=== PATIENT | female | born 1955 | race Caucasian/White ===

== ENCOUNTER 2020-07-11 07:27 | Outpatient (REF) | payer MEDICARE, OTHER, SELFPAY ==
[2020-07-11 11:50] LABS: Alanine Aminotransferase 18 U/L (0-31); Albumin Level 4.2 g/dL (3.5-5.0); Alkaline Phosphatase 82 U/L (39-117); Anion Gap 13 (12-20); Aspartate Amino Transferase 17 U/L (5-31); Blood Urea Nitrogen 14 mg/dL (9-16); Calcium 9.7 mg/dL (8.4-10.2); Carbon Dioxide 27 mmol/L (22-29); Chloride 108 mmol/L (96-108); Estimated Glomerular Filt Rate 40; Glucose Random 132 mg/dL (60-115); Potassium 3.6 mmol/l (3.3-5.1); Sodium 144 mmol/L (135-145); Total Protein 6.6 g/dL (6.5-8.0)
[2020-07-11 11:55] LABS: Estimated Average Glucose 111 mg/dL; Hemoglobin A1c % 5.5 %
[2020-07-11 11:58] LABS: Free T4 (Free Thyroxine) 1.61 ng/dL (0.71-1.85); Thyroid Stimulating Hormone 0.47 mIU/mL (0.32-4.0)
[2020-07-11 12:24] LABS: Creatinine Urine 311.64 mg/dL; Microalbum/Creatinine Ratio Ur 4.8 ug/mg cr
== END 2020-07-11 07:28 | disposition home or self-care (01) ==
LOC: HO.HMGCLDS 07:27
PROVIDERS: PCP Internal Medicine; Visit Provider Internal Medicine
DX: I12.9 Hypertensive chronic kidney disease with stage 1 through stage 4 chronic kidney disease, or unspecified chronic kidney disease (principal); N18.9 Chronic kidney disease, unspecified; R73.09 Other abnormal glucose; E03.9 Hypothyroidism, unspecified; R60.0 Localized edema
CPT/HCPCS: 36415; 80053; 82043; 83036; 84439; 84443

== ENCOUNTER 2020-10-04 08:14 | Outpatient (REF) | payer MEDICARE, OTHER, SELFPAY ==
[2020-10-04 11:04] LABS: MANUAL DIFF FLAG NO
[2020-10-04 11:12] LABS: Basophils Absolute Auto 0.1 X10*3/uL (0.0-0.2); Eosinophils Absolute Auto 0.3 X10*3/uL (0.0-0.4); Eosinophils Percent Auto 3.2 % (0-4); Hematocrit 49.6 % (37-47); Hemoglobin 15.8 g/dl (12.0-16.0); Imm Gran Abs Auto 0.04 X10*3/uL (0.00-0.03); Imm Gran Pct Auto 0.5 % (0.0-0.4); Lymphocytes Absolute Auto 1.8 X10*3/uL (1.2-4.9); Lymphocytes Percent Auto 22.5 % (20-40); Mean Corpuscular HGB Conc 31.9 g/dl (31.0-35.0); Mean Corpuscular Hemoglobin 29.5 pg (27.0-33.0); Mean Corpuscular Volume 92.5 fL (80-98); Mean Platelet Volume 9.8 fL (9.4-12.3); Monocytes Absolute Auto 0.5 X10*3/uL (0.1-1.2); Monocytes Percent Auto 6.4 % (2-11); Neutrophils Absolute Auto 5.2 X10*3/uL (2.0-8.3); Neutrophils Percent Auto 66.4 % (45-73); Platelet Count 316 X10*3/uL (160-400); Red Blood Count 5.36 X10*6/uL (4.20-5.50); Red Cell Distribution Width 12.4 % (11.0-16.0); White Blood Count 7.9 X10*3/uL (4.8-10.8)
[2020-10-04 11:35] LABS: Estimated Average Glucose 114 mg/dL; Hemoglobin A1c % 5.6 %
[2020-10-04 11:49] LABS: Alanine Aminotransferase 13 U/L (0-31); Albumin Level 4.1 g/dL (3.5-5.0); Alkaline Phosphatase 81 U/L (39-117); Anion Gap 13 (12-20); Aspartate Amino Transferase 13 U/L (5-31); Bilirubin Total 0.6 mg/dL (0.0-1.0); Blood Urea Nitrogen 14 mg/dL (9-16); Calcium 9.1 mg/dL (8.4-10.2); Carbon Dioxide 25 mmol/L (22-29); Chloride 107 mmol/L (96-108); Cholesterol 205 mg/dL; Estimated Glomerular Filt Rate 39; Glucose Fasting 144 mg/dL (60-99); HDL Cholesterol 67 mg/dL; LDL Cholesterol Calculated 117 mg/dl; Potassium 3.5 mmol/l (3.3-5.1); Sodium 141 mmol/L (135-145); Total Protein 6.5 g/dL (6.5-8.0); Triglycerides 108 mg/dL
[2020-10-04 11:57] LABS: Free T4 (Free Thyroxine) 1.37 ng/dL (0.71-1.85); Thyroid Stimulating Hormone 0.35 uIU/mL (0.32-4.0); Vitamin D 25-OH Total 33.9 ng/mL (>30)
== END 2020-10-04 08:15 | disposition home or self-care (01) ==
LOC: HO.HMGCLDS 08:14
PROVIDERS: PCP Internal Medicine; Visit Provider Internal Medicine
DX: R73.03 Prediabetes (principal); E78.5 Hyperlipidemia, unspecified; I10 Essential (primary) hypertension; E05.90 Thyrotoxicosis, unspecified without thyrotoxic crisis or storm; E55.9 Vitamin D deficiency, unspecified; M19.90 Unspecified osteoarthritis, unspecified site
CPT/HCPCS: 36415; 80053; 80061; 82043; 82306; 83036; 84439; 84443; 85025

== ENCOUNTER 2021-01-02 07:31 | Outpatient (REF) | payer MEDICARE, OTHER, SELFPAY ==
[2021-01-02 11:35] LABS: Estimated Average Glucose 114 mg/dL; Hemoglobin A1C 149.0552 umol/L; Hemoglobin A1c % 5.6 %
[2021-01-02 12:13] LABS: Creatinine Urine 325.31 mg/dL; Microalbum/Creatinine Ratio Ur 8.2 ug/mg cr
[2021-01-02 12:26] LABS: Anion Gap 15 (12-20); Blood Urea Nitrogen 16 mg/dL (9-16); Calcium 9.3 mg/dL (8.4-10.2); Carbon Dioxide 25 mmol/L (22-29); Chloride 107 mmol/L (96-108); Estimated Glomerular Filt Rate 44; Glucose Random 127 mg/dL (60-115); Potassium 3.8 mmol/L (3.3-5.1); Sodium 143 mmol/L (135-145)
== END 2021-01-02 07:32 | disposition home or self-care (01) ==
LOC: HO.HMGCLDS 07:31
PROVIDERS: PCP Internal Medicine; Visit Provider Internal Medicine
DX: I12.9 Hypertensive chronic kidney disease with stage 1 through stage 4 chronic kidney disease, or unspecified chronic kidney disease (principal); N18.9 Chronic kidney disease, unspecified; R73.03 Prediabetes
CPT/HCPCS: 36415; 80048; 82043; 83036

== ENCOUNTER 2021-04-12 06:53 | Outpatient (REF) | payer MEDICARE, OTHER, SELFPAY ==
[2021-04-12 11:16] LABS: MANUAL DIFF FLAG NO
[2021-04-12 11:24] LABS: Basophils Absolute Auto 0.1 X10*3/uL (0.0-0.2); Basophils Percent Auto 0.5 % (0-2); Eosinophils Absolute Auto 0.4 X10*3/uL (0.0-0.4); Eosinophils Percent Auto 3.8 % (0-4); Hematocrit 48.2 % (37-47); Hemoglobin 15.8 g/dl (12.0-16.0); Imm Gran Abs Auto 0.04 X10*3/uL (0.00-0.03); Imm Gran Pct Auto 0.4 % (0.0-0.4); Lymphocytes Absolute Auto 2.5 X10*3/uL (1.2-4.9); Lymphocytes Percent Auto 26.8 % (20-40); Mean Corpuscular HGB Conc 32.8 g/dl (31.0-35.0); Mean Corpuscular Hemoglobin 29.5 pg (27.0-33.0); Mean Corpuscular Volume 90.1 fL (80-98); Mean Platelet Volume 10.2 fL (9.4-12.3); Monocytes Absolute Auto 0.6 X10*3/uL (0.1-1.2); Monocytes Percent Auto 6.5 % (2-11); Neutrophils Absolute Auto 5.7 X10*3/uL (2.0-8.3); Platelet Count 279 X10*3/uL (160-400); Red Blood Count 5.35 X10*6/uL (4.20-5.50); Red Cell Distribution Width 12.6 % (11.0-16.0); White Blood Count 9.1 X10*3/uL (4.8-10.8)
[2021-04-12 11:34] LABS: Estimated Average Glucose 114 mg/dL; Hemoglobin A1c % 5.6 %
[2021-04-12 11:39] LABS: Microalbum/Creatinine Ratio Ur 8.5 ug/mg cr
[2021-04-12 11:49] LABS: Alanine Aminotransferase 13 U/L (0-31); Albumin Level 4.1 g/dL (3.5-5.0); Alkaline Phosphatase 90 U/L (39-117); Anion Gap 16 (12-20); Aspartate Amino Transferase 18 U/L (5-31); Bilirubin Total 1.1 mg/dL (0.0-1.0); Blood Urea Nitrogen 16 mg/dL (9-16); Calcium 9.6 mg/dL (8.4-10.2); Carbon Dioxide 19 mmol/L (22-29); Chloride 109 mmol/L (96-108); Estimated Glomerular Filt Rate 43; Glucose Random 144 mg/dL (60-115); Potassium 3.7 mmol/L (3.3-5.1); Sodium 140 mmol/L (135-145); Total Protein 6.7 g/dL (6.5-8.0)
[2021-04-12 12:12] LABS: Free T4 (Free Thyroxine) 1.46 ng/dL (0.71-1.85); Thyroid Stimulating Hormone 1.11 uIU/mL (0.32-4.0)
== END 2021-04-12 06:54 | disposition home or self-care (01) ==
LOC: HO.HMGCLDS 06:53
PROVIDERS: PCP Internal Medicine; Visit Provider Internal Medicine
DX: I12.9 Hypertensive chronic kidney disease with stage 1 through stage 4 chronic kidney disease, or unspecified chronic kidney disease (principal); N18.9 Chronic kidney disease, unspecified; E03.9 Hypothyroidism, unspecified; R73.03 Prediabetes
CPT/HCPCS: 36415; 80053; 82043; 83036; 84439; 84443; 85025

== ENCOUNTER 2021-07-17 08:05 | Outpatient (REF) | payer MEDICARE, SELFPAY ==
[2021-07-17 11:35] LABS: MANUAL DIFF FLAG NO
[2021-07-17 11:41] LABS: Basophils Absolute Auto 0.1 X10*3/uL (0.0-0.2); Basophils Percent Auto 0.6 % (0-2); Eosinophils Absolute Auto 0.3 X10*3/uL (0.0-0.4); Eosinophils Percent Auto 3.7 % (0-4); Hematocrit 49.5 % (37-47); Hemoglobin 15.9 g/dl (12.0-16.0); Imm Gran Abs Auto 0.03 X10*3/uL (0.00-0.03); Imm Gran Pct Auto 0.3 % (0.0-0.4); Lymphocytes Absolute Auto 2.5 X10*3/uL (1.2-4.9); Lymphocytes Percent Auto 28.2 % (20-40); Mean Corpuscular HGB Conc 32.1 g/dl (31.0-35.0); Mean Corpuscular Hemoglobin 29.4 pg (27.0-33.0); Mean Corpuscular Volume 91.7 fL (80-98); Mean Platelet Volume 9.8 fL (9.4-12.3); Monocytes Absolute Auto 0.6 X10*3/uL (0.1-1.2); Neutrophils Absolute Auto 5.3 X10*3/uL (2.0-8.3); Neutrophils Percent Auto 60.2 % (45-73); Platelet Count 324 X10*3/uL (160-400); Red Cell Distribution Width 12.5 % (11.0-16.0); White Blood Count 8.8 X10*3/uL (4.8-10.8)
[2021-07-17 11:47] LABS: Estimated Average Glucose 111 mg/dL; Hemoglobin A1c % 5.5 %
[2021-07-17 11:55] LABS: Alanine Aminotransferase 11 U/L (0-31); Albumin Level 4.1 g/dL (3.5-5.0); Alkaline Phosphatase 86 U/L (39-117); Anion Gap 13 (12-20); Aspartate Amino Transferase 15 U/L (5-31); Blood Urea Nitrogen 15 mg/dL (9-16); Calcium 9.9 mg/dL (8.4-10.2); Carbon Dioxide 25 mmol/L (22-29); Chloride 107 mmol/L (96-108); Cholesterol 203 mg/dL; Estimated Glomerular Filt Rate 42; Glucose Fasting 140 mg/dL (60-99); HDL Cholesterol 65 mg/dL; LDL Cholesterol Calculated 116 mg/dl; Potassium 3.6 mmol/L (3.3-5.1); Sodium 141 mmol/L (135-145); Total Protein 6.7 g/dL (6.5-8.0); Triglycerides 113 mg/dL
[2021-07-17 12:19] LABS: Free T4 (Free Thyroxine) 1.38 ng/dL (0.71-1.85); Thyroid Stimulating Hormone 0.83 uIU/mL (0.32-4.0)
== END 2021-07-17 08:06 | disposition home or self-care (01) ==
LOC: HO.HMGCLDS 08:05
PROVIDERS: PCP Internal Medicine; Visit Provider Internal Medicine
DX: I12.9 Hypertensive chronic kidney disease with stage 1 through stage 4 chronic kidney disease, or unspecified chronic kidney disease (principal); N18.9 Chronic kidney disease, unspecified; R73.03 Prediabetes; M19.90 Unspecified osteoarthritis, unspecified site; E78.00 Pure hypercholesterolemia, unspecified; E03.9 Hypothyroidism, unspecified
CPT/HCPCS: 36415; 80053; 80061; 83036; 84439; 84443; 85025

== ENCOUNTER 2021-09-14 08:50 | Outpatient (REF) | payer MEDICARE, SELFPAY ==
[2021-09-14 12:08] LABS: Anion Gap 14 (12-20); Blood Urea Nitrogen 18 mg/dL (9-16); Calcium 10.1 mg/dL (8.4-10.2); Carbon Dioxide 28 mmol/L (22-29); Chloride 104 mmol/L (96-108); Estimated Glomerular Filt Rate 41; Glucose Random 137 mg/dL (60-115); Potassium 3.6 mmol/L (3.3-5.1); Sodium 142 mmol/L (135-145)
[2021-09-14 12:34] LABS: Free T4 (Free Thyroxine) 1.54 ng/dL (0.71-1.85); Thyroid Stimulating Hormone 0.83 uIU/mL (0.32-4.0); Vitamin D 25-OH Total 41.8 ng/mL (>30)
[2021-09-14 13:53] LABS: Estimated Average Glucose 114 mg/dL; Hemoglobin A1c % 5.6 %
== END 2021-09-14 08:51 | disposition home or self-care (01) ==
LOC: HO.HMGCLDS 08:50
PROVIDERS: PCP Internal Medicine; Visit Provider Internal Medicine
DX: E55.9 Vitamin D deficiency, unspecified (principal); E11.22 Type 2 diabetes mellitus with diabetic chronic kidney disease; I12.9 Hypertensive chronic kidney disease with stage 1 through stage 4 chronic kidney disease, or unspecified chronic kidney disease; N18.9 Chronic kidney disease, unspecified; E03.9 Hypothyroidism, unspecified
CPT/HCPCS: 36415; 80048; 82306; 83036; 84439; 84443

== ENCOUNTER 2022-04-05 08:27 | Outpatient (REF) | payer MEDICARE, OTHER, SELFPAY ==
[2022-04-05 11:20] LABS: MANUAL DIFF FLAG NO
[2022-04-05 11:33] LABS: Basophils Absolute Auto 0.1 X10*3/uL (0.0-0.2); Basophils Percent Auto 0.6 % (0-2); Eosinophils Absolute Auto 0.3 X10*3/uL (0.0-0.4); Eosinophils Percent Auto 3.6 % (0-4); Hematocrit 48.6 % (37.0-47.0); Hemoglobin 15.4 g/dl (12.0-16.0); Imm Gran Abs Auto 0.03 X10*3/uL (0.00-0.03); Imm Gran Pct Auto 0.3 % (0.0-0.4); Lymphocytes Absolute Auto 1.8 X10*3/uL (1.2-4.9); Mean Corpuscular HGB Conc 31.7 g/dl (31.0-35.0); Mean Corpuscular Hemoglobin 28.8 pg (27.0-33.0); Mean Corpuscular Volume 90.8 fL (80.0-98.0); Mean Platelet Volume 9.5 fL (9.4-12.3); Monocytes Absolute Auto 0.6 X10*3/uL (0.1-1.2); Monocytes Percent Auto 6.2 % (2-11); Neutrophils Absolute Auto 6.7 x10*3/uL (2.0-8.3); Neutrophils Percent Auto 70.3 % (45-73); Platelet Count 332 X10*3/uL (160-400); Red Blood Count 5.35 X10*6/uL (4.20-5.50); Red Cell Distribution Width 12.7 % (11.0-16.0); White Blood Count 9.5 X10*3/uL (4.8-10.8)
[2022-04-05 11:55] LABS: Microalbum/Creatinine Ratio Ur 5.8 ug/mg cr
[2022-04-05 11:58] LABS: Anion Gap 13 (12-20); Blood Urea Nitrogen 16 mg/dL (9-16); Calcium 9.7 mg/dL (8.4-10.2); Carbon Dioxide 26 mmol/L (22-29); Chloride 107 mmol/L (96-108); Estimated Glomerular Filt Rate 40; Sodium 142 mmol/L (135-145)
[2022-04-05 11:59] LABS: Alanine Aminotransferase 16 U/L (0-31); Albumin Level 4.2 g/dL (3.5-5.0); Alkaline Phosphatase 94 U/L (39-117); Anion Gap 13 (12-20); Aspartate Amino Transferase 18 U/L (5-31); Bilirubin Total 0.9 mg/dL (0.0-1.0); Blood Urea Nitrogen 16 mg/dL (9-16); Calcium 9.9 mg/dL (8.4-10.2); Carbon Dioxide 27 mmol/L (22-29); Chloride 106 mmol/L (96-108); Estimated Glomerular Filt Rate 40; Glucose Random 153 mg/dL (60-115); Sodium 142 mmol/L (135-145); Total Protein 6.9 g/dL (6.5-8.0)
[2022-04-05 12:07] LABS: Free T4 (Free Thyroxine) 1.48 ng/dL (0.71-1.85); Thyroid Stimulating Hormone 4.22 uIU/mL (0.32-4.0)
[2022-04-05 12:15] LABS: Estimated Average Glucose 111 mg/dL; Hemoglobin A1c % 5.5 %
[2022-04-07 18:01] LABS: Calcium (PTHI) 8.9 mg/dL (8.6-10.4); PTHI 93 pg/mL (16-77)
== END 2022-04-05 08:28 | disposition home or self-care (01) ==
LOC: HO.HMGCLDS 08:27
PROVIDERS: Absent Provider Internal Medicine Nephrology; PCP Internal Medicine; Visit Provider Internal Medicine
DX: I12.9 Hypertensive chronic kidney disease with stage 1 through stage 4 chronic kidney disease, or unspecified chronic kidney disease (principal); N18.31 Chronic kidney disease, stage 3a; R73.03 Prediabetes; E03.9 Hypothyroidism, unspecified
CPT/HCPCS: 36415; 80051; 80053; 82043; 82306; 82310; 82565; 83036; 83970; 84439; 84443; 84520; 85025

== ENCOUNTER 2022-07-09 06:51 | Outpatient (REF) | payer MEDICARE, OTHER, SELFPAY ==
[2022-07-09 11:23] LABS: Appearance Urine Turbid; Color Urine Dark Yellow; Glucose Urine UA Negative (Negative); Leukocyte Esterase Urine Negative (Negative); Nitrite Urine Negative (Negative); PH 5.5 (5.0-9.0); Specific Gravity - Urine >= 1.030 (1.005-1.025); UMIC TRIGGER UA YES; Urine Blood Large (3+) (Negative); Urine Ketones Negative (Negative); Urine Protein Trace mg/dL (Neg-Trace)
[2022-07-09 11:25] LABS: MANUAL DIFF FLAG NO
[2022-07-09 11:28] LABS: Bacteria Urine 4+ (None Seen); Hyaline Casts Urine 0-2 /LPF (0-2); Squamous Epithelial Cell Urine >20 /HPF (0-2)
[2022-07-09 11:37] LABS: Basophils Absolute Auto 0.1 X10*3/uL (0.0-0.2); Basophils Percent Auto 0.7 % (0-2); Eosinophils Absolute Auto 0.4 X10*3/uL (0.0-0.4); Eosinophils Percent Auto 4.2 % (0-4); Hematocrit 47.3 % (37.0-47.0); Hemoglobin 15.3 g/dl (12.0-16.0); Imm Gran Abs Auto 0.04 X10*3/uL (0.00-0.03); Imm Gran Pct Auto 0.5 % (0.0-0.4); Lymphocytes Absolute Auto 2.4 X10*3/uL (1.2-4.9); Lymphocytes Percent Auto 27.3 % (20-40); Mean Corpuscular HGB Conc 32.3 g/dl (31.0-35.0); Mean Corpuscular Hemoglobin 29.7 pg (27.0-33.0); Mean Corpuscular Volume 91.7 fL (80.0-98.0); Mean Platelet Volume 9.7 fL (9.4-12.3); Monocytes Absolute Auto 0.6 X10*3/uL (0.1-1.2); Neutrophils Absolute Auto 5.3 x10*3/uL (2.0-8.3); Neutrophils Percent Auto 60.3 % (45-73); Platelet Count 298 X10*3/uL (160-400); Red Blood Count 5.16 X10*6/uL (4.20-5.50); Red Cell Distribution Width 12.4 % (11.0-16.0); White Blood Count 8.8 X10*3/uL (4.8-10.8)
[2022-07-09 11:44] LABS: Estimated Average Glucose 117 mg/dL; Hemoglobin A1c % 5.7 %
[2022-07-09 11:50] LABS: Creatinine Urine 279.45 mg/dL; Microalbum/Creatinine Ratio Ur 4.6 ug/mg cr
[2022-07-09 12:22] LABS: Alanine Aminotransferase 19 U/L (0-31); Albumin Level 4.2 g/dL (3.5-5.0); Alkaline Phosphatase 83 U/L (39-117); Anion Gap 15 (12-20); Aspartate Amino Transferase 18 U/L (5-31); Blood Urea Nitrogen 17 mg/dL (9-16); Calcium 9.8 mg/dL (8.4-10.2); Carbon Dioxide 29 mmol/L (22-29); Chloride 102 mmol/L (96-108); Cholesterol 215 mg/dL; Estimated Glomerular Filt Rate 39; Glucose Fasting 133 mg/dL (60-99); HDL Cholesterol 63 mg/dL; LDL Cholesterol Calculated 124 mg/dl; Potassium 3.6 mmol/L (3.3-5.1); Sodium 142 mmol/L (135-145); Total Protein 6.6 g/dL (6.5-8.0); Triglycerides 143 mg/dL
[2022-07-09 12:30] LABS: Free T4 (Free Thyroxine) 1.84 ng/dL (0.71-1.85); Thyroid Stimulating Hormone 2.29 uIU/mL (0.32-4.0)
== END 2022-07-09 06:52 | disposition home or self-care (01) ==
LOC: HO.HMGCLDS 06:51
PROVIDERS: PCP Internal Medicine; Visit Provider Internal Medicine
DX: I12.9 Hypertensive chronic kidney disease with stage 1 through stage 4 chronic kidney disease, or unspecified chronic kidney disease (principal); N18.9 Chronic kidney disease, unspecified; E78.00 Pure hypercholesterolemia, unspecified; E03.9 Hypothyroidism, unspecified; R73.03 Prediabetes
CPT/HCPCS: 36415; 80053; 80061; 81001; 82043; 83036; 84439; 84443; 85025

== ENCOUNTER 2022-11-05 10:37 | Outpatient (REF) | payer MEDICARE, OTHER, SELFPAY ==
[2022-11-05 14:23] LABS: Alanine Aminotransferase 28 U/L (0-31); Albumin Level 4.3 g/dL (3.5-5.0); Alkaline Phosphatase 87 U/L (39-117); Anion Gap 13 (12-20); Aspartate Amino Transferase 21 U/L (5-31); Bilirubin Total 1.2 mg/dL (0.0-1.0); Blood Urea Nitrogen 15 mg/dL (9-16); Calcium 9.7 mg/dL (8.4-10.2); Carbon Dioxide 32 mmol/L (22-29); Chloride 101 mmol/L (96-108); Estimated Glomerular Filt Rate 40; Glucose Random 130 mg/dL (60-115); Potassium 3.4 mmol/L (3.3-5.1); Sodium 143 mmol/L (135-145); Total Protein 6.8 g/dL (6.5-8.0)
[2022-11-05 14:40] LABS: Free T4 (Free Thyroxine) 1.38 ng/dL (0.71-1.85); Thyroid Stimulating Hormone 3.17 uIU/mL (0.32-4.0)
== END 2022-11-05 10:38 | disposition home or self-care (01) ==
LOC: HO.10HDL 10:37
PROVIDERS: Visit Provider Internal Medicine
DX: I12.9 Hypertensive chronic kidney disease with stage 1 through stage 4 chronic kidney disease, or unspecified chronic kidney disease (principal); N18.9 Chronic kidney disease, unspecified; E03.9 Hypothyroidism, unspecified
CPT/HCPCS: 36415; 80053; 84439; 84443

== ENCOUNTER 2023-03-05 09:31 | Outpatient (REF) | payer MEDICARE, OTHER, SELFPAY ==
[2023-03-05 10:39] LABS: MANUAL DIFF FLAG NO
[2023-03-05 10:45] LABS: Basophils Absolute Auto 0.1 X10*3/uL (0.0-0.2); Eosinophils Absolute Auto 0.4 X10*3/uL (0.0-0.4); Eosinophils Percent Auto 4.5 % (0-4); Hemoglobin 15.5 g/dl (12.0-16.0); Imm Gran Abs Auto 0.05 X10*3/uL (0.00-0.03); Imm Gran Pct Auto 0.6 % (0.0-0.4); Lymphocytes Absolute Auto 2.1 X10*3/uL (1.2-4.9); Lymphocytes Percent Auto 23.2 % (20-40); Mean Corpuscular HGB Conc 31.6 g/dl (31.0-35.0); Mean Corpuscular Hemoglobin 29.2 pg (27.0-33.0); Mean Corpuscular Volume 92.5 fL (80.0-98.0); Mean Platelet Volume 9.6 fL (9.4-12.3); Monocytes Absolute Auto 0.6 X10*3/uL (0.1-1.2); Monocytes Percent Auto 6.8 % (2-11); Neutrophils Absolute Auto 5.8 x10*3/uL (2.0-8.3); Neutrophils Percent Auto 63.9 % (45-73); Platelet Count 325 X10*3/uL (160-400); Red Cell Distribution Width 12.8 % (11.0-16.0)
[2023-03-05 10:53] LABS: Estimated Average Glucose 117 mg/dL; Hemoglobin A1c % 5.7 %
[2023-03-05 11:02] LABS: Alanine Aminotransferase 17 U/L (0-31); Albumin Level 4.3 g/dL (3.5-5.0); Alkaline Phosphatase 89 U/L (39-117); Anion Gap 12 (12-20); Aspartate Amino Transferase 15 U/L (5-31); Blood Urea Nitrogen 18 mg/dL (9-16); Calcium 10.2 mg/dL (8.4-10.2); Carbon Dioxide 31 mmol/L (22-29); Chloride 104 mmol/L (96-108); Estimated Glomerular Filt Rate 36; Glucose Random 152 mg/dL (60-115); Potassium 4.1 mmol/L (3.3-5.1); Sodium 143 mmol/L (135-145)
[2023-03-05 11:19] LABS: Free T4 (Free Thyroxine) 1.31 ng/dL (0.71-1.85)
== END 2023-03-05 09:32 | disposition home or self-care (01) ==
LOC: HO.10HDL 09:31
PROVIDERS: Visit Provider Internal Medicine
DX: R73.03 Prediabetes (principal); I12.9 Hypertensive chronic kidney disease with stage 1 through stage 4 chronic kidney disease, or unspecified chronic kidney disease; N18.9 Chronic kidney disease, unspecified; E03.9 Hypothyroidism, unspecified
CPT/HCPCS: 36415; 80053; 83036; 84439; 84443; 85025

== ENCOUNTER 2023-06-11 10:15 | Outpatient (REF) | payer MEDICARE, OTHER, SELFPAY ==
[2023-06-11 13:11] LABS: MANUAL DIFF FLAG NO
[2023-06-11 13:30] LABS: Basophils Absolute Auto 0.1 X10*3/uL (0.0-0.2); Basophils Percent Auto 1.1 % (0-2); Eosinophils Absolute Auto 0.3 X10*3/uL (0.0-0.4); Eosinophils Percent Auto 3.5 % (0-4); Hematocrit 49.8 % (37.0-47.0); Hemoglobin 15.9 g/dl (12.0-16.0); Imm Gran Abs Auto 0.03 X10*3/uL (0.00-0.03); Imm Gran Pct Auto 0.4 % (0.0-0.4); Lymphocytes Absolute Auto 2.2 X10*3/uL (1.2-4.9); Lymphocytes Percent Auto 26.3 % (20-40); Mean Corpuscular HGB Conc 31.9 g/dl (31.0-35.0); Mean Corpuscular Hemoglobin 29.8 pg (27.0-33.0); Mean Corpuscular Volume 93.3 fL (80.0-98.0); Mean Platelet Volume 9.9 fL (9.4-12.3); Monocytes Absolute Auto 0.6 X10*3/uL (0.1-1.2); Monocytes Percent Auto 7.2 % (2-11); Neutrophils Absolute Auto 5.1 x10*3/uL (2.0-8.3); Neutrophils Percent Auto 61.5 % (45-73); Platelet Count 335 X10*3/uL (160-400); Red Blood Count 5.34 X10*6/uL (4.20-5.50); Red Cell Distribution Width 12.7 % (11.0-16.0); White Blood Count 8.2 X10*3/uL (4.8-10.8)
[2023-06-11 13:34] LABS: Estimated Average Glucose 114 mg/dL; Hemoglobin A1c % 5.6 % (<6.0)
[2023-06-11 13:49] LABS: Alanine Aminotransferase 13 U/L (0-31); Albumin Level 4.1 g/dL (3.5-5.0); Alkaline Phosphatase 86 U/L (39-117); Anion Gap 12 (12-20); Aspartate Amino Transferase 15 U/L (5-31); Bilirubin Total 0.7 mg/dL (0.0-1.0); Blood Urea Nitrogen 15 mg/dL (9-16); Calcium 10.1 mg/dL (8.4-10.2); Carbon Dioxide 28 mmol/L (22-29); Chloride 105 mmol/L (96-108); Estimated Glomerular Filt Rate 33; Glucose Random 142 mg/dL (60-115); Potassium 3.6 mmol/L (3.3-5.1); Sodium 141 mmol/L (135-145)
[2023-06-11 14:10] LABS: Free T4 (Free Thyroxine) 1.22 ng/dL (0.71-1.85); Thyroid Stimulating Hormone 5.04 uIU/mL (0.32-4.0)
== END 2023-06-11 10:16 | disposition home or self-care (01) ==
LOC: HO.10HDL 10:15
PROVIDERS: Visit Provider Internal Medicine
DX: R73.03 Prediabetes (principal); E03.9 Hypothyroidism, unspecified; I12.9 Hypertensive chronic kidney disease with stage 1 through stage 4 chronic kidney disease, or unspecified chronic kidney disease; N18.9 Chronic kidney disease, unspecified
CPT/HCPCS: 36415; 80053; 83036; 84439; 84443; 85025

== ENCOUNTER 2023-09-25 07:18 | Outpatient (REF) | payer MEDICARE, OTHER, SELFPAY ==
[2023-09-25 11:33] LABS: MANUAL DIFF FLAG NO
[2023-09-25 11:56] LABS: Estimated Average Glucose 120 mg/dL; Hemoglobin A1c % 5.8 % (<6.0)
[2023-09-25 12:06] LABS: Basophils Absolute Auto 0.1 X10*3/uL (0.0-0.2); Basophils Percent Auto 0.9 % (0-2); Eosinophils Absolute Auto 0.2 X10*3/uL (0.0-0.4); Eosinophils Percent Auto 3.1 % (0-4); Hematocrit 49.5 % (37.0-47.0); Imm Gran Abs Auto 0.04 X10*3/uL (0.00-0.03); Imm Gran Pct Auto 0.5 % (0.0-0.4); Lymphocytes Absolute Auto 2.3 X10*3/uL (1.2-4.9); Lymphocytes Percent Auto 31.2 % (20-40); Mean Corpuscular HGB Conc 32.3 g/dl (31.0-35.0); Mean Corpuscular Volume 89.8 fL (80.0-98.0); Mean Platelet Volume 9.3 fL (9.4-12.3); Monocytes Absolute Auto 0.5 X10*3/uL (0.1-1.2); Monocytes Percent Auto 7.1 % (2-11); Neutrophils Absolute Auto 4.3 x10*3/uL (2.0-8.3); Neutrophils Percent Auto 57.2 % (45-73); Platelet Count 334 X10*3/uL (160-400); Red Blood Count 5.51 X10*6/uL (4.20-5.50); Red Cell Distribution Width 12.6 % (11.0-16.0); White Blood Count 7.5 X10*3/uL (4.8-10.8)
[2023-09-25 12:28] LABS: Appearance Urine Cloudy; Color Urine Yellow; Glucose Urine UA Negative (Negative); Leukocyte Esterase Urine Negative (Negative); Nitrite Urine Negative (Negative); PH 5.5 (5.0-9.0); Specific Gravity - Urine >= 1.030 (1.005-1.025); UMIC TRIGGER UA YES; Urine Blood Large (3+) (Negative); Urine Ketones Negative (Negative); Urine Protein 30 (1+) mg/dL (Neg-Trace)
[2023-09-25 12:38] LABS: Alanine Aminotransferase 13 U/L (0-31); Alkaline Phosphatase 72 U/L (39-117); Anion Gap 12 (12-20); Aspartate Amino Transferase 13 U/L (5-31); Blood Urea Nitrogen 13 mg/dL (9-16); Calcium 9.8 mg/dL (8.4-10.2); Carbon Dioxide 25 mmol/L (22-29); Chloride 106 mmol/L (96-108); Cholesterol 185 mg/dL (<200); Estimated Glomerular Filt Rate 36; Free T4 (Free Thyroxine) 1.48 ng/dL (0.71-1.85); Glucose Fasting 154 mg/dL (60-99); HDL Cholesterol 55 mg/dL (>40); LDL Cholesterol Calculated 106 mg/dL (<100); Potassium 3.3 mmol/L (3.3-5.1); Sodium 140 mmol/L (135-145); Thyroid Stimulating Hormone 1.62 uIU/mL (0.32-4.0); Total Protein 6.8 g/dL (6.5-8.0); Triglycerides 121 mg/dL (<150)
[2023-09-25 12:39] LABS: Microalbum/Creatinine Ratio Ur 18.6 ug/mg cr (<30)
[2023-09-25 12:54] LABS: Bacteria Urine 2+ (None Seen); Hyaline Casts Urine 0-2 /LPF (0-2); Squamous Epithelial Cell Urine >20 /HPF (0-2)
== END 2023-09-25 07:19 | disposition home or self-care (01) ==
LOC: HO.HMGCLDS 07:18
PROVIDERS: PCP Internal Medicine; Visit Provider Internal Medicine
DX: E03.9 Hypothyroidism, unspecified (principal); E78.00 Pure hypercholesterolemia, unspecified; R73.03 Prediabetes; I12.9 Hypertensive chronic kidney disease with stage 1 through stage 4 chronic kidney disease, or unspecified chronic kidney disease; N18.9 Chronic kidney disease, unspecified
CPT/HCPCS: 36415; 80053; 80061; 81001; 81003; 82043; 82570; 83036; 84439; 84443; 85025

== ENCOUNTER 2023-12-24 09:40 | Outpatient (AMB) | payer MEDICARE, OTHER, SELFPAY ==
[2023-12-24 10:00] VITALS: BP 120/74; PULSE 76; O2SAT 97; BMI 35.9
--- NOTE | 2023-12-24 10:00 | HO.NEPHOV_ITS ---
HPI HPI Comments History of Present Illness Details I had the privilege of seeing Claire in follow-up of her chronic kidney disease and hypertension. She feels well. She does not have any chest pain, shortness of breath, paroxysmal nocturnal dyspnea, orthopnea, pedal edema, urinary or orthostatic symptoms. She is compliant with her medications. She has not gained any weight. Her blood pressure has been at goal. She is closely followed by her primary care physician. [facility] Medical History (Updated 01/08/24 @ 21:34 by Case Portillo MD) Hypertension Chronic kidney disease, stage 3a Vital Signs 12/24/23 10:00 Height 5 ft 7 in Weight 229 lb BMI 35.9 BP 120/74 Blood Pressure Location Lt brachial Position Sitting Pulse 76 Pulse Source Pulse Oximeter Pulse Oximetry (%) 97 Oxygen Delivery Method Room Air Physical Exam Vital Signs: Last Vital Signs Pulse 76 12/24/23 10:00 BP 120/74 12/24/23 10:00 Pulse Ox 97 12/24/23 10:00 Oxygen Delivery Method Room Air 12/24/23 10:00 BMI result Body Mass Index 35.9 Const General: comfortable and no acute distress Orientation/consciousness: patient oriented x3 HEENT Head: Yes normocephalic Mouth: Normal oral and palatal mucosa present Eyes EOM: EOMs intact bilaterally Neck Neck: Yes supple Resp Auscultation: clear to auscultation bilaterally Cardio Jugular venous distension: no JVD Rate: regular rate GI Palpation (GI): Soft to palpation Auscultation: normal bowel sounds General: Yes no CVA tenderness Back/Spine/Pelvis Back: no CVA tenderness Skin General skin exam: no rashes or lesions noted Neuro General: patient oriented x3 and moves all extremities Extrem General: Yes no pedal edema Assessment & Plan Assessment & Plan (1) CKD (chronic kidney disease) stage 3, GFR 30-59 ml/min: Code(s): N18.30 - Chronic kidney disease, stage 3 unspecified Qualifiers: Chronic kidney disease stage 3 subtype: stage 3a (GFR 45-59) Qualified Code(s): N18.31 - Chronic kidney disease, stage 3a (2) Hypertension: Code(s): I10 - Essential (primary) hypertension Qualifiers: Hypertension type: primary hypertension Qualified Code(s): I10 - Essential (primary) hypertension (3) Proteinuria: Code(s): R80.9 - Proteinuria, unspecified Qualifiers: Proteinuria type: other Qualified Code(s): R80.8 - Other proteinuria Plan Her renal functions are currently stable. Her blood pressure has been at goal. She would benefit by some more weight loss. She should maintain a low-sodium diet. Her volume status quite optimal. She avoids nonsteroidal anti- inflammatories and maintain good hydration. I did not make any medication changes today. Follow-up blood work ordered and follow-up appointment given in 6 months. Answered all questions. Orders: Orders Parathyroid Hormone Intact 12/24/23 I10 - Essential (primary) hypertension, N18.30 - Chronic kidney disease, stage 3 unspecified Phosphorus 12/24/23 I10 - Essential (primary) hypertension, N18.30 - Chronic kidney disease, stage 3 unspecified Electrolytes 12/24/23 I10 - Essential (primary) hypertension, N18.30 - Chronic kidney disease, stage 3 unspecified Blood Urea Nitrogen 12/24/23 I10 - Essential (primary) hypertension, N18.30 - Chronic kidney disease, stage 3 unspecified Creatinine 12/24/23 I10 - Essential (primary) hypertension, N18.30 - Chronic kidney disease, stage 3 unspecified Calcium 12/24/23 I10 - Essential (primary) hypertension, N18.30 - Chronic kidney disease, stage 3 unspecified Complete Blood Count Auto Diff 12/24/23 I10 - Essential (primary) hypertension, N18.30 - Chronic kidney disease, stage 3 unspecified Coding Level of Care Code Est Pt Level 4 (65354) Diagnoses Stage 3a chronic kidney disease N18.31 Chronic kidney disease stage 3 subtype: stage 3a (GFR 45-59) Primary hypertension I10 Hypertension type: primary hypertension Other proteinuria R80.8 Proteinuria type: other Results Reviewed Nephrology Results: Hgb 16.0 g/dl (12.0-16.0) 09/25/23 WBC 7.5 X10*3/uL (4.8-10.8) 09/25/23 Plt Count 334 X10*3/uL (160-400) 09/25/23 Sodium 140 mmol/L (135-145) 09/25/23 Potassium 3.3 mmol/L (3.3-5.1) 09/25/23 Chloride 106 mmol/L (96-108) 09/25/23 Carbon Dioxide 25 mmol/L (22-29) 09/25/23 BUN 13 mg/dL (9-16) 09/25/23 Creatinine 1.44 mg/dL (0.5-1.4) H 09/25/23 Calcium 9.8 mg/dL (8.4-10.2) 09/25/23 PTH Intact 93 pg/mL (16-77) H 04/05/22 Urine Protein 30 (1+) mg/dL (Neg-Trace) H 09/25/23 Urine Creatinine 423.06 mg/dL 09/25/23
== END 2023-12-24 10:35 | disposition home or self-care (01) ==
PROVIDERS: PCP Internal Medicine; Visit Provider Internal Medicine Nephrology
DX: N18.31 Chronic kidney disease, stage 3a (principal); I10 Essential (primary) hypertension; R80.8 Other proteinuria
CPT/HCPCS: 99214

== ENCOUNTER → 2023-12-24 09:40 | Outpatient (BNVA) | payer MEDICARE, OTHER, SELFPAY | PROVIDERS: PCP Internal Medicine; Visit Provider Internal Medicine Nephrology | DX: I12.9 Hypertensive chronic kidney disease with stage 1 through stage 4 chronic kidney disease, or unspecified chronic kidney disease (principal); N18.31 Chronic kidney disease, stage 3a; R80.8 Other proteinuria | CPT/HCPCS: 99212 ==

== ENCOUNTER 2024-03-22 06:22 | Outpatient (REF) | payer MEDICARE, OTHER, SELFPAY ==
[2024-03-22 10:45] LABS: Alanine Aminotransferase 10 U/L (0-31); Alkaline Phosphatase 77 U/L (39-117); Anion Gap 13 (12-20); Aspartate Amino Transferase 14 U/L (5-31); Bilirubin Total 0.9 mg/dL (0.0-1.0); Blood Urea Nitrogen 11 mg/dL (9-16); Calcium 9.4 mg/dL (8.4-10.2); Carbon Dioxide 25 mmol/L (22-29); Chloride 107 mmol/L (96-108); Estimated Glomerular Filt Rate 45; Glucose Random 146 mg/dL (60-115); Potassium 3.1 mmol/L (3.3-5.1); Sodium 142 mmol/L (135-145); Total Protein 6.8 g/dL (6.5-8.0)
[2024-03-22 11:05] LABS: Estimated Average Glucose 120 mg/dL; Hemoglobin A1c % 5.8 % (<6.0)
[2024-03-22 11:16] LABS: Microalbum/Creatinine Ratio Ur 8.8 ug/mg cr (<30)
== END 2024-03-22 06:23 | disposition home or self-care (01) ==
LOC: HO.HMGCLDS 06:22
PROVIDERS: PCP Internal Medicine; Visit Provider Internal Medicine
DX: I10 Essential (primary) hypertension (principal); N18.9 Chronic kidney disease, unspecified; R73.03 Prediabetes
CPT/HCPCS: 36415; 80053; 82043; 82570; 83036

== ENCOUNTER 2024-06-29 07:02 | Outpatient (REF) | payer MEDICARE, OTHER, SELFPAY ==
[2024-06-29 10:15] LABS: MANUAL DIFF FLAG NO
[2024-06-29 10:18] LABS: Basophils Absolute Auto 0.1 X10*3/uL (0.0-0.2); Basophils Percent Auto 0.9 % (0-2); Eosinophils Absolute Auto 0.3 X10*3/uL (0.0-0.4); Eosinophils Percent Auto 3.2 % (0-4); Hematocrit 47.7 % (37.0-47.0); Hemoglobin 15.7 g/dl (12.0-16.0); Imm Gran Abs Auto 0.04 X10*3/uL (0.00-0.03); Imm Gran Pct Auto 0.5 % (0.0-0.4); Lymphocytes Absolute Auto 2.4 X10*3/uL (1.2-4.9); Lymphocytes Percent Auto 27.1 % (20-40); Mean Corpuscular HGB Conc 32.9 g/dl (31.0-35.0); Mean Corpuscular Hemoglobin 30.1 pg (27.0-33.0); Mean Corpuscular Volume 91.4 fL (80.0-98.0); Mean Platelet Volume 9.6 fL (9.4-12.3); Monocytes Absolute Auto 0.7 X10*3/uL (0.1-1.2); Monocytes Percent Auto 7.4 % (2-11); Neutrophils Absolute Auto 5.3 x10*3/uL (2.0-8.3); Neutrophils Percent Auto 60.9 % (45-73); Platelet Count 338 X10*3/uL (160-400); Red Blood Count 5.22 X10*6/uL (4.20-5.50); Red Cell Distribution Width 12.3 % (11.0-16.0); White Blood Count 8.8 X10*3/uL (4.8-10.8)
[2024-06-29 10:55] LABS: Anion Gap 10 (12-20); Blood Urea Nitrogen 20 mg/dL (9-16); Calcium 9.7 mg/dL (8.4-10.2); Carbon Dioxide 28 mmol/L (22-29); Chloride 106 mmol/L (96-108); Estimated Glomerular Filt Rate 41; Phosphorus 3.2 mg/dL (2.7-4.5); Potassium 3.1 mmol/L (3.3-5.1); Sodium 141 mmol/L (135-145)
== END 2024-06-29 07:03 | disposition home or self-care (01) ==
LOC: HO.HMGCLDS 07:02
PROVIDERS: PCP Internal Medicine; Visit Provider Internal Medicine Nephrology
DX: I10 Essential (primary) hypertension (principal); N18.30 Chronic kidney disease, stage 3 unspecified
CPT/HCPCS: 36415; 80051; 82310; 82565; 83970; 84100; 84520; 85025

== ENCOUNTER 2024-07-09 15:17 | Outpatient (AMB) | payer MEDICARE, OTHER, SELFPAY ==
--- NOTE | 2024-07-09 15:20 | HO.NEPHOV ---
Vital Signs 07/09/24 15:23 Height 5 ft 7 in Weight 225 lb 6 oz BMI 35.3 BP 112/70 Blood Pressure Location Rt brachial Position Sitting Pulse 59 Pulse Source Pulse Oximeter Pulse Oximetry (%) 96 Oxygen Delivery Method Room Air Intake Visit Reasons: CKD/ 6 MO FU/ Conf Property Field Inspector Required: No Accompanied by: Self / Same As Patient Allergies latex Allergy (Mild, Verified 07/09/24 15:25) Unknown HPI Comments Details: I had the privilege of seeing Claire in follow-up of her chronic kidney disease and hypertension. She feels well. She has a positive Cologuard and is going to have a colonoscopy. She does not have any chest pain, shortness of breath, paroxysmal nocturnal dyspnea, orthopnea, pedal edema, urinary or orthostatic symptoms. She is compliant with her medications. She has not gained any weight. Her blood pressure has been at goal. She is closely followed by her primary care physician. [facility] Medical History (Updated 07/09/24 @ 15:40 by Case Portillo MD) Hypertension Chronic kidney disease, stage 3a Review of Systems Const All systems reviewed & are unremarkable except as noted in HPI and below Physical Exam Vital Signs: Last Vital Signs Pulse 59 07/09/24 15:23 BP 112/70 07/09/24 15:23 Pulse Ox 96 07/09/24 15:23 Oxygen Delivery Method Room Air 07/09/24 15:23 BMI result Body Mass Index 35.3 Const General: comfortable and no acute distress Orientation/consciousness: patient oriented x3 HEENT Head: Yes normocephalic Mouth: Normal oral and palatal mucosa present Eyes EOM: EOMs intact bilaterally Neck Neck: Yes supple Resp Auscultation: clear to auscultation bilaterally Cardio Jugular venous distension: no JVD Rate: regular rate GI Palpation (GI): Soft to palpation Auscultation: normal bowel sounds General: Yes no CVA tenderness Back/Spine/Pelvis Back: no CVA tenderness Skin General skin exam: no rashes or lesions noted Neuro General: patient oriented x3 and moves all extremities Extrem General: Yes no pedal edema Results Reviewed Nephrology Results: Hgb 15.7 g/dl (12.0-16.0) 06/29/24 WBC 8.8 X10*3/uL (4.8-10.8) 06/29/24 Plt Count 338 X10*3/uL (160-400) 06/29/24 Sodium 141 mmol/L (135-145) 06/29/24 Potassium 3.1 mmol/L (3.3-5.1) L 06/29/24 Chloride 106 mmol/L (96-108) 06/29/24 Carbon Dioxide 28 mmol/L (22-29) 06/29/24 BUN 20 mg/dL (9-16) H 06/29/24 Creatinine 1.28 mg/dL (0.5-1.4) 06/29/24 Calcium 9.7 mg/dL (8.4-10.2) 06/29/24 Phosphorus 3.2 mg/dL (2.7-4.5) 06/29/24 PTH Intact 365.0 pg/mL (8.7-77.1) H 06/29/24 Urine Protein 30 (1+) mg/dL (Neg-Trace) H 09/25/23 Urine Creatinine 269.86 mg/dL 03/22/24 Assessment & Plan Assessment & Plan (1) Hypertension: Code(s): I10 - Essential (primary) hypertension Category: Medical Qualifiers: Hypertension type: primary hypertension Qualified Code(s): I10 - Essential (primary) hypertension (2) CKD (chronic kidney disease) stage 3, GFR 30-59 ml/min: Code(s): N18.30 - Chronic kidney disease, stage 3 unspecified Category: Medical Qualifiers: Chronic kidney disease stage 3 subtype: stage 3a (GFR 45-59) Qualified Code(s): N18.31 - Chronic kidney disease, stage 3a (3) Secondary hyperparathyroidism (of renal origin): Code(s): N25.81 - Secondary hyperparathyroidism of renal origin Category: Medical (4) Hypokalemia: Code(s): E87.6 - Hypokalemia Category: Medical Plan Her renal functions are currently stable. Her blood pressure has been at goal. She would benefit by some more weight loss. She should maintain a low-sodium diet. Her volume status quite optimal. She avoids nonsteroidal anti-inflammatories and maintain good hydration. I have ordered Vitamin D levels. I have increased her KCl to 20 MEq daily. I did not make any other medication changes today. Follow-up blood work ordered and follow-up appointment given in 3 months. Answered all questions. Orders: Orders NM parathyroid Today I10 - Essential (primary) hypertension, N18.31 - Chronic kidney disease, stage 3a, N25.81 - Secondary hyperparathyroidism of renal origin Vitamin D 25-OH Total 3 Months E87.6 - Hypokalemia, I10 - Essential (primary) hypertension, N18.31 - Chronic kidney disease, stage 3a, N25.81 - Secondary hyperparathyroidism of renal origin Parathyroid Hormone Intact 3 Months N25.81 - Secondary hyperparathyroidism of renal origin Medications: Changed From potassium chloride ER 10 mEq PO DAILY 30 tabs 0RF To potassium chloride ER 20 mEq PO DAILY 90 days 90 tabs 3RF Coding Level of Care Code Est Pt Level 4 (76598) Diagnoses Primary hypertension I10 Hypertension type: primary hypertension Stage 3a chronic kidney disease N18.31 Chronic kidney disease stage 3 subtype: stage 3a (GFR 45-59) Secondary hyperparathyroidism (of renal origin) N25.81 Hypokalemia E87.6
[2024-07-09 15:23] VITALS: BP 112/70; PULSE 59; O2SAT 96; BMI 35.3
== END 2024-07-09 15:46 | disposition home or self-care (01) ==
PROVIDERS: PCP Internal Medicine; Visit Provider Internal Medicine Nephrology
DX: I12.9 Hypertensive chronic kidney disease with stage 1 through stage 4 chronic kidney disease, or unspecified chronic kidney disease (principal); N18.31 Chronic kidney disease, stage 3a; N25.81 Secondary hyperparathyroidism of renal origin; E87.6 Hypokalemia
CPT/HCPCS: 99214

== ENCOUNTER → 2024-07-09 15:17 | Outpatient (BNVA) | payer MEDICARE, SELFPAY | PROVIDERS: PCP Internal Medicine; Visit Provider Internal Medicine Nephrology | DX: I12.9 Hypertensive chronic kidney disease with stage 1 through stage 4 chronic kidney disease, or unspecified chronic kidney disease (principal); N18.31 Chronic kidney disease, stage 3a; N25.81 Secondary hyperparathyroidism of renal origin; E87.6 Hypokalemia | CPT/HCPCS: 99212 ==

== ENCOUNTER → 2024-08-09 07:26 | Outpatient (REF) | payer MEDICARE, SELFPAY ==
--- NOTE | ~2024-08-09 | NM_ITS ---
EXAMINATION: NM PARATHYROID SCAN CLINICAL INFORMATION: Secondary hyperparathyroidism of renal origin. COMPARISON: No previous radionuclide parathyroid or thyroid imaging studies are available for comparison. The patient continues on levothyroxine which she has taken before 50+ years. TECHNIQUE: A double radionuclide study of the thyroid bed region and upper chest in multiple projections was performed 4 hours after the oral administration of 1.0 mCi I-123 sodium iodide and immediately following the intravenous administration of 23 mCi Tc-99m sestamibi. Repeat imaging was performed 2 hours later. The iodide images were electronically subtracted from the sestamibi images using different weighting factors. FINDINGS: The radioiodine images visualize the thyroid gland, but the intensity of activity is diminished, likely due to significantly decreased radioiodine uptake secondary to the patient's long-term use of exogenous thyroid hormone. The right lobe slightly larger and more intense than the left, but no definite focal abnormalities are present. Technetium 99m sestamibi images also show asymmetrical activity with the right lobe larger and more intense than the left. On the delayed images at 2 hours, there is a subtle focus of more prominently increased sestamibi activity extending inferiorly from the lateral aspect of the lower pole the right lobe, visualized best on the anterior view. Computer-generated digital subtraction images are suboptimal because of the low count statistics on the radioiodine images and do not provide further information. AZ/AZ parathyroid IMPRESSION: An equivocal focus of abnormal sestamibi activity is suggested extending inferiorly from the lateral aspect of the lower pole of the right thyroid lobe. The finding is considered equivocal. There are no other abnormalities suspicious for a parathyroid adenoma. The activity in the thyroid gland is asymmetrical, with the right lobe larger and more intense on the left, but no additional focal abnormalities are present in the thyroid gland. Electronically signed by: Jeovanny Ross MD 08/24/2024 10:16 AM [facility]
== END ==
LOC: HO.NUCMED 07:26
PROVIDERS: PCP Internal Medicine; Visit Provider Internal Medicine Nephrology
DX: N25.81 Secondary hyperparathyroidism of renal origin (principal); I12.9 Hypertensive chronic kidney disease with stage 1 through stage 4 chronic kidney disease, or unspecified chronic kidney disease; N18.31 Chronic kidney disease, stage 3a
CPT/HCPCS: 78070; A9500; A9516

== ENCOUNTER 2024-08-26 12:30 | Outpatient (REF) | payer MEDICARE, SELFPAY ==
--- NOTE | ~2024-08-26 | XR_ITS ---
EXAMINATION: XR FOOT, LEFT CLINICAL INFORMATION: RULE OUT FRACTURE COMPARISON: None available. TECHNIQUE: AP, lateral, and oblique views of the left foot. FINDINGS: There are slightly angulated and slightly comminuted fractures involving the distal 4th and 5th metatarsal shafts. No additional acute fractures. Heel spur. XR/XR foot LT min 3V IMPRESSION: Distal 4th and 5th metatarsal shaft fractures. Electronically signed by: Ezio Natarajan MD 08/26/2024 01:41 PM [facility]
== END 2024-08-26 12:31 | disposition home or self-care (01) ==
LOC: HO.XRAY 12:30
PROVIDERS: PCP Internal Medicine; Visit Provider Internal Medicine
DX: S99.922D Unspecified injury of left foot, subsequent encounter (principal)
CPT/HCPCS: 73630

== ENCOUNTER 2024-08-31 13:52 | Outpatient (AMB) | payer MEDICARE, SELFPAY ==
--- NOTE | 2024-08-31 14:20 | MHC.OFFVIS ---
Vital Signs 08/31/24 14:32 Height 5 ft 7 in Weight 225 lb BMI 35.2 Intake Visit Reasons: FC-Distal 4th&5th metatarsal shaft FC Intake Note: Claire a 69 year old female who presents today with her niece for an evaluation of left 4th and 5th MT fx, DOI 08/26/24.Patient reports that she was carrying items into her new home, she brought out to back deck not realizing the step down and caused her to fall. She was seen by her PCP who ordered x-rays and referred to orthopedics. Her pain has improved however she continues to have pain in her toes as well as swelling. She has been limiting use of her foot and has been elevating her foot for the past 5 days. No numbness or tingling. Allergies latex Allergy (Mild, Verified 07/09/24 15:25) Unknown azithromycin Allergy (Verified 08/31/24 14:23) Unknown Medication List - Last Reconciled 08/31/24 by Cm Wagner PA-C amlodipine 5 mg PO DAILY tzyexqdcxl-[id number]-xswm 50-325-40 mg 2 tabs PO BEDTIME PRN ergocalciferol (vitamin D2) 1,250 mcg PO QWEEK furosemide 20 mg PO DAILY levothyroxine 125 mcg PO DAILY metoprolol tartrate 50 mg PO BID potassium chloride ER 20 mEq PO DAILY 90 days pravastatin 40 mg PO DAILY topiramate 25 mg PO DAILY HPI HPI FC-Distal 4th&5th metatarsal shaft FC: Details: 69-year-old female who presents to the office today with her niece for an evaluation of left 4th and 5th metatarsal injury, 08/26/24. She reports she was carrying items into her new home and she brought out to back deck not realizing the step down and sustained a fall. She was seen by her PCP who ordered x-rays and referred her to our office. She currently states she has improvement however she continues to have pain in her toes as well as swelling. She has been limiting the use of her foot and elevating her foot since the injury. She denies any numbness or tingling. [facility] Medical History (Updated 08/31/24 @ 14:56 by Cm Wagner PA-C) Hypertension Chronic kidney disease, stage 3a Surgical History (Updated 08/31/24 @ 14:26 by LIONEL Pastor) History of ankle surgery Social History (Updated 08/31/24 @ 14:27 by LIONEL Pastor) Patient Tobacco Use Status: Never used Tobacco Current occupational status: retired Review of Systems Const All systems reviewed & are unremarkable except as noted in HPI and below Physical Exam Vital Signs: BMI result Body Mass Index 35.2 Const General: cooperative, healthy appearing, comfortable, no acute distress, well developed and alert Orientation/consciousness: patient oriented x3 HEENT Head: Yes normal to inspection, Yes normocephalic and Yes atraumatic Eyes General: appearance normal, both eyes and all related structures Resp Effort & Inspection: normal respiratory effort and able to speak in complete sentences Cardio Rate: regular rate Peripheral pulses: Peripheral pulses 2+ throughout GI Palpation (GI): Soft to palpation Skin Lesions: no lesions Rashes: no rashes Neuro General: patient oriented x3 Extrem Other: Left foot: Skin intact.? There is some bruising of the top of the left foot.? There is tenderness over the 4th and 5th metatarsal. Sensation intact.? EHL intact.? No pain along the mediolateral malleolus.? Neurovascularly intact. Office Procedures AMB Fracture Care Fracture Billing Code: Fracture Billing Code Results Reviewed Results Reviewed: XR foot LT min 3V 08/26/24 IMPRESSION: Distal 4th and 5th metatarsal shaft fractures. Assessment & Plan Assessment & Plan (1) Metatarsal stress fracture of left foot: Code(s): M84.375A - Stress fracture, left foot, initial encounter for fracture Category: Medical Plan She was fit for a short boot weight bearing as tolerated. She can wear the boot for ambulation and remove for resting and hygiene. I did explain that in the first 6 weeks we would expect union of fracture and another 6 weeks for strength in the fracture. She will increase activities as tolerated and transition to a regular street shoe when comfortable. She can see me back in 6 weeks with new x-rays for a follow-up, sooner if needed. Patient Instructions: Scribed for Cm Wagner PA-C, by Sd Truong medical assistant secretary, on 08/31/2024 at 2:15 PM EST.? I, Cm Wagner PA-C, have personally reviewed and agree with the information entered by the scribe. Coding Level of Care Code New Pt Level 3 (83735) Complex EM visit Add On G2211 Diagnoses Metatarsal stress fracture of left foot M84.375A CPT Codes Fracture Care - Fracture Billing Code: Fracture Billing Code ([id number])
[2024-08-31 14:32] VITALS: BMI 35.2
== END 2024-08-31 14:56 | disposition home or self-care (01) ==
PROVIDERS: PCP Internal Medicine; Visit Provider Physician Assistant
DX: M84.375A Stress fracture, left foot, initial encounter for fracture (principal)
CPT/HCPCS: 99203; G2211

== ENCOUNTER → 2024-08-31 13:52 | Outpatient (BNVA) | payer MEDICARE, SELFPAY | PROVIDERS: PCP Internal Medicine; Visit Provider Physician Assistant | DX: M84.375A Stress fracture, left foot, initial encounter for fracture (principal) | CPT/HCPCS: 99202 ==

== ENCOUNTER 2024-09-07 07:45 | Outpatient (REF) | payer MEDICARE, SELFPAY ==
[2024-09-07 11:16] LABS: MANUAL DIFF FLAG NO
[2024-09-07 11:20] LABS: Basophils Absolute Auto 0.1 X10*3/uL (0.0-0.2); Basophils Percent Auto 0.7 % (0-2); Eosinophils Absolute Auto 0.2 X10*3/uL (0.0-0.4); Hematocrit 49.8 % (37.0-47.0); Hemoglobin 16.4 g/dl (12.0-16.0); Imm Gran Abs Auto 0.02 X10*3/uL (0.00-0.03); Imm Gran Pct Auto 0.3 % (0.0-0.4); Lymphocytes Absolute Auto 1.4 X10*3/uL (1.2-4.9); Mean Corpuscular HGB Conc 32.9 g/dl (31.0-35.0); Mean Corpuscular Volume 91.2 fL (80.0-98.0); Mean Platelet Volume 9.8 fL (9.4-12.3); Monocytes Absolute Auto 0.6 X10*3/uL (0.1-1.2); Monocytes Percent Auto 7.4 % (2-11); Neutrophils Absolute Auto 5.4 x10*3/uL (2.0-8.3); Neutrophils Percent Auto 70.6 % (45-73); Platelet Count 307 X10*3/uL (160-400); Red Blood Count 5.46 X10*6/uL (4.20-5.50); Red Cell Distribution Width 12.8 % (11.0-16.0); White Blood Count 7.7 X10*3/uL (4.8-10.8)
[2024-09-07 11:26] LABS: Estimated Average Glucose 120 mg/dL; Hemoglobin A1c % 5.8 % (<6.0); Total Hemoglobin (HGBA1C) 4084.9668 umol/L
[2024-09-07 11:59] LABS: Alanine Aminotransferase 12 U/L (0-31); Albumin Level 4.2 g/dL (3.5-5.0); Alkaline Phosphatase 80 U/L (39-117); Anion Gap 14 (12-20); Aspartate Amino Transferase 21 U/L (5-31); Bilirubin Total 1.5 mg/dL (0.0-1.0); Blood Urea Nitrogen 14 mg/dL (9-16); Carbon Dioxide 23 mmol/L (22-29); Chloride 107 mmol/L (96-108); Cholesterol 182 mg/dL (<200); Estimated Glomerular Filt Rate 32; Glucose Fasting 146 mg/dL (60-99); HDL Cholesterol 63 mg/dL (>40); LDL Cholesterol Calculated 101 mg/dL (<100); Potassium 3.6 mmol/L (3.3-5.1); Sodium 140 mmol/L (135-145); Thyroid Stimulating Hormone 0.82 uIU/mL (0.32-4.0); Total Protein 6.9 g/dL (6.5-8.0); Triglycerides 94 mg/dL (<150); Vitamin D 25-OH Total 104.3 ng/mL (>30)
== END 2024-09-07 07:46 | disposition home or self-care (01) ==
LOC: HO.HMGCLDS 07:45
PROVIDERS: PCP Internal Medicine; Visit Provider Internal Medicine
DX: I10 Essential (primary) hypertension (principal); E78.00 Pure hypercholesterolemia, unspecified; R73.03 Prediabetes; E03.9 Hypothyroidism, unspecified
CPT/HCPCS: 36415; 80053; 80061; 82306; 83036; 84439; 84443; 85025

== ENCOUNTER 2024-10-08 10:25 | Outpatient (REF) | payer MEDICARE, SELFPAY ==
[2024-10-08 13:47] LABS: Vitamin D 25-OH Total 116.4 ng/mL (>30)
[2024-10-08 14:25] LABS: Parathyroid Hormone Intact 276.4 pg/mL (8.7-77.1)
== END 2024-10-08 10:26 | disposition home or self-care (01) ==
LOC: HO.HMGCLDS 10:25
PROVIDERS: PCP Internal Medicine; Visit Provider Internal Medicine Nephrology
DX: E87.6 Hypokalemia (principal); N25.81 Secondary hyperparathyroidism of renal origin; I10 Essential (primary) hypertension; N18.31 Chronic kidney disease, stage 3a
CPT/HCPCS: 36415; 82306; 83970

== ENCOUNTER 2024-10-13 09:42 | Outpatient (AMB) | payer MEDICARE, SELFPAY ==
--- NOTE | 2024-10-13 10:00 | HO.NEPHOV_ITS ---
Vital Signs 10/13/24 10:01 Height 5 ft 7 in Weight 216 lb 2 oz BMI 33.8 BP 124/80 Blood Pressure Location Lt brachial Position Sitting Pulse 63 Pulse Source Pulse Oximeter Pulse Oximetry (%) 97 Oxygen Delivery Method Room Air Intake Visit Reasons: CKD Rehabilitation Psychologist Required: No Accompanied by: Self / Same As Patient Allergies latex Allergy (Mild, Verified 10/13/24 10:01) Unknown azithromycin Allergy (Verified 10/13/24 10:01) Unknown HPI Comments Details: Claire was seen in follow-up of her chronic kidney disease and hypertension. She feels well. She has a positive Cologuard but has not had a colonoscopy yet. She does not have any chest pain, shortness of breath, paroxysmal nocturnal dyspnea, orthopnea, pedal edema, urinary or orthostatic symptoms. She is compliant with her medications. She has not gained any weight. Her blood pressure has been at goal. She has a parathyroid adenoma. [facility] Medical History (Updated 10/13/24 @ 10:13 by Case Portillo MD) Hypertension Chronic kidney disease, stage 3a Surgical History History of ankle surgery Social History Patient Tobacco Use Status: Never used Tobacco Current occupational status: retired Review of Systems Const All systems reviewed & are unremarkable except as noted in HPI and below Physical Exam Const General: comfortable and no acute distress Orientation/consciousness: patient oriented x3 HEENT Head: Yes normocephalic Mouth: Normal oral and palatal mucosa present Eyes EOM: EOMs intact bilaterally Neck Neck: Yes supple Resp Auscultation: clear to auscultation bilaterally Cardio Jugular venous distension: no JVD Rate: regular rate GI Palpation (GI): Soft to palpation Auscultation: normal bowel sounds General: Yes no CVA tenderness Back/Spine/Pelvis Back: no CVA tenderness Skin General skin exam: no rashes or lesions noted Neuro General: patient oriented x3 and moves all extremities Extrem General: Yes no pedal edema Results Reviewed Nephrology Results: Hgb 16.4 g/dl (12.0-16.0) H 09/07/24 WBC 7.7 X10*3/uL (4.8-10.8) 09/07/24 Plt Count 307 X10*3/uL (160-400) 09/07/24 Sodium 140 mmol/L (135-145) 09/07/24 Potassium 3.6 mmol/L (3.3-5.1) 09/07/24 Chloride 107 mmol/L (96-108) 09/07/24 Carbon Dioxide 23 mmol/L (22-29) 09/07/24 BUN 14 mg/dL (9-16) 09/07/24 Creatinine 1.61 mg/dL (0.5-1.4) H 09/07/24 Calcium 10.0 mg/dL (8.4-10.2) 09/07/24 Phosphorus 3.2 mg/dL (2.7-4.5) 06/29/24 PTH Intact 276.4 pg/mL (8.7-77.1) H 10/08/24 Urine Protein 30 (1+) mg/dL (Neg-Trace) H 09/25/23 Urine Creatinine 269.86 mg/dL 03/22/24 Assessment & Plan Assessment & Plan (1) CKD (chronic kidney disease) stage 3, GFR 30-59 ml/min: Code(s): N18.30 - Chronic kidney disease, stage 3 unspecified Category: Medical Qualifiers: Chronic kidney disease stage 3 subtype: stage 3a (GFR 45-59) Qualified Code(s): N18.31 - Chronic kidney disease, stage 3a (2) Hypertension: Code(s): I10 - Essential (primary) hypertension Category: Medical Qualifiers: Hypertension type: primary hypertension Qualified Code(s): I10 - Essential (primary) hypertension (3) Primary hyperparathyroidism: Code(s): E21.0 - Primary hyperparathyroidism Category: Medical Plan Her renal functions are currently stable. Her blood pressure has been at goal. She would benefit by some more weight loss. She should maintain a low-sodium diet. Her volume status quite optimal. She avoids nonsteroidal anti- inflammatories and maintain good hydration. She is on KCl 20 MEq daily. I referred her to Dr Tee to explore the need for parathyroid surgery. I did not make any other medication changes today. Answered all questions. Orders: Orders Blood Urea Nitrogen 4 Months E21.0 - Primary hyperparathyroidism, I10 - Essential (primary) hypertension, N18.31 - Chronic kidney disease, stage 3a Calcium 4 Months E21.0 - Primary hyperparathyroidism, I10 - Essential (primary) hypertension, N18.31 - Chronic kidney disease, stage 3a Creatinine 4 Months E21.0 - Primary hyperparathyroidism, I10 - Essential (primary) hypertension, N18.31 - Chronic kidney disease, stage 3a Electrolytes 4 Months E21.0 - Primary hyperparathyroidism, I10 - Essential (primary) hypertension, N18.31 - Chronic kidney disease, stage 3a Referrals General Surgery Referral E21.0 - Primary hyperparathyroidism Coding Level of Care Code Est Pt Level 4 (65573) Diagnoses Stage 3a chronic kidney disease N18.31 Chronic kidney disease stage 3 subtype: stage 3a (GFR 45-59) Primary hypertension I10 Hypertension type: primary hypertension Primary hyperparathyroidism E21.0
[2024-10-13 10:01] VITALS: BP 124/80; PULSE 63; O2SAT 97; BMI 33.8
== END 2024-10-13 10:21 | disposition home or self-care (01) ==
PROVIDERS: PCP Internal Medicine; Visit Provider Internal Medicine Nephrology
DX: I12.9 Hypertensive chronic kidney disease with stage 1 through stage 4 chronic kidney disease, or unspecified chronic kidney disease (principal); N18.31 Chronic kidney disease, stage 3a; E21.0 Primary hyperparathyroidism
CPT/HCPCS: 99214

== ENCOUNTER → 2024-10-13 09:42 | Outpatient (BNVA) | payer MEDICARE, SELFPAY | PROVIDERS: PCP Internal Medicine; Visit Provider Internal Medicine Nephrology | DX: I12.9 Hypertensive chronic kidney disease with stage 1 through stage 4 chronic kidney disease, or unspecified chronic kidney disease (principal); N18.31 Chronic kidney disease, stage 3a; E21.0 Primary hyperparathyroidism | CPT/HCPCS: 99212 ==

== ENCOUNTER 2024-10-14 11:15 | Outpatient (REF) | payer MEDICARE, OTHER, SELFPAY ==
--- NOTE | ~2024-10-14 | XR_ITS ---
EXAMINATION: XR FOOT 3 OR MORE VIEWS LEFT HISTORY: M79.672 - Pain in left foot COMPARISON: Comparison is made with the prior examination dated 08/26/2024. FINDINGS: Three views of the left foot are submitted. Osseous mineralization is normal. Again seen are comminuted fractures of the 4th and 5th metatarsal necks and shafts. Position and alignment of the fracture fragments is unchanged. There is callus formation noted at the fracture sites consistent with healing. The joint spaces are preserved. The soft tissues are unremarkable. XR/XR foot LT min 3V IMPRESSION: Healing comminuted fractures of the 4th and 5th metatarsals. Electronically signed by: Gautam Shrestha MD 10/19/2024 02:17 PM YOSEPH
== END 2024-10-14 11:16 | disposition home or self-care (01) ==
LOC: HO.HOSX 11:15
PROVIDERS: Visit Provider Physician Assistant
DX: M79.672 Pain in left foot (principal); S92.302D Fracture of unspecified metatarsal bone(s), left foot, subsequent encounter for fracture with routine healing
CPT/HCPCS: 73630; 99212

== ENCOUNTER 2024-10-14 12:24 | Outpatient (AMB) | payer MEDICARE, SELFPAY ==
--- NOTE | 2024-10-14 12:41 | MHC.OFFVIS ---
Vital Signs 10/14/24 12:47 Height 5 ft 6 in Weight 212 lb BMI 34.2 Intake Visit Reasons: OV- 6wk f/u left foot fx w/xrays Intake Note: Claire is a 69 year old female who presents today for a follow up visit for her metatarsal stress fracture of left foot, DOI: 08/26/2024. Patient reports she feels an improvement from when she first injured her left foot. She states she ambulates the house occasionally without her boot to the bathroom or to the kitchen from her room and says this has not been an issue for her. She reports she does not leave her house without the boot on for protection. She says she can now bear weight without any difficulty. Allergies latex Allergy (Mild, Verified 10/14/24 12:47) Unknown azithromycin Allergy (Verified 10/14/24 12:47) Unknown Medication List - Last Reconciled 10/14/24 by Cm Wagner PA-C amlodipine 5 mg PO DAILY colxmsxbub-uskyatrsvrarx-vcfo 50-325-40 mg 2 tabs PO BEDTIME PRN ergocalciferol (vitamin D2) 1,250 mcg PO QWEEK furosemide 20 mg PO DAILY levothyroxine 125 mcg PO DAILY metoprolol tartrate 50 mg PO BID potassium chloride ER 20 mEq PO DAILY 90 days pravastatin 40 mg PO DAILY topiramate 25 mg PO DAILY HPI HPI OV- 6wk f/u left foot fx w/xrays: Details: 69-year-old female returns to the office today 6 week follow-up left foot 4th and 5th metatarsal fracture. She has been ambulating with the boot and doing well. She states she has come out of the boot to ambulate throughout the night with no pain. [facility] Medical History (Updated 10/14/24 @ 13:18 by Cm Wagner PA-C) Hypertension Chronic kidney disease, stage 3a Surgical History History of ankle surgery Social History Patient Tobacco Use Status: Never used Tobacco Current occupational status: retired Review of Systems Const All systems reviewed & are unremarkable except as noted in HPI and below Physical Exam Vital Signs: BMI result Body Mass Index 34.2 Const General: cooperative and no acute distress Orientation/consciousness: patient oriented x3 HEENT Head: Yes normal to inspection, Yes normocephalic and Yes atraumatic Eyes General: appearance normal, both eyes and all related structures Resp Effort & Inspection: normal respiratory effort and able to speak in complete sentences Cardio Rate: regular rate Peripheral pulses: Peripheral pulses 2+ throughout GI Palpation (GI): Soft to palpation Skin Lesions: no lesions Rashes: no rashes Neuro General: patient oriented x3 Extrem Other: Left foot: Skin intact.? No bruising of the top of the left foot.? There is no tenderness over the 4th and 5th metatarsal. Sensation intact.? EHL intact.? No pain along the mediolateral malleolus.? Neurovascularly intact. Results Reviewed Results Reviewed: X-rays of the left foot obtained in the office today reviewed by me show interval healing through the 4th and 5th metatarsal shaft fracture. Assessment & Plan Assessment & Plan (1) Fracture of metatarsal of left foot, closed: Code(s): S92.302A - Fracture of unspecified metatarsal bone(s), left foot, initial encounter for closed fracture Category: Medical Qualifiers: Encounter type: subsequent encounter Metatarsal bone: unspecified metatarsal Fracture alignment: displaced Fracture healing: with routine healing Qualified Code(s): S92.302D - Fracture of unspecified metatarsal bone(s), left foot, subsequent encounter for fracture with routine healing Plan At this time she will start to wean from the boot as symptoms allow. She will transition to regular street shoes based on comfort. She does have some home exercises from a previous ankle and foot surgery that she is going to use. She will increase activities as tolerated and see us back as needed. Orders: Orders XR foot LT min 3V Today M79.672 - Pain in left foot Coding Level of Care Code Global (23026) Diagnoses Closed displaced fracture of metatarsal bone of left foot with routine healing, unspecified metatarsal, subsequent encounter S92.302D Encounter type: subsequent encounter Metatarsal bone: unspecified metatarsal Fracture alignment: displaced Fracture healing: with routine healing
[2024-10-14 12:47] VITALS: BMI 34.2
== END 2024-10-14 12:59 | disposition home or self-care (01) ==
PROVIDERS: PCP Internal Medicine; Visit Provider Physician Assistant
DX: S92.342A Displaced fracture of fourth metatarsal bone, left foot, initial encounter for closed fracture (principal); S92.352A Displaced fracture of fifth metatarsal bone, left foot, initial encounter for closed fracture
CPT/HCPCS: 99213

== ENCOUNTER 2025-01-06 11:00 | Outpatient (REF) | payer MEDICARE, OTHER, SELFPAY ==
--- OUTSIDE RECORDS SUMMARY | 2025-01-06 12:24 | XMS_ITS ---
Author Organization [facility] Address [address] [place] [phone] Care Team Providers Care Chef Manager Name Role Phone Dax Villanueva MD Primary Care Provider Gautam Gandhi [phone] Encounters Encounter Location Date Provider Diagnosis [facility] [address] [place] [phone] 09/24/2024 Gautam Damon Plan Of Treatment No Information Progress Notes * ANU RAOOB:1955 (69 yo F)Acc No.[id number]:09/24/2024 Patient:?JENNY RAO :1955???Age:69 Y???Sex:Female Address:[address], [place] [address] * true * Date:? Generated for Simran beckman/Margie/eTransmitting on:?01/06/2025 12:24 PM EDT
--- OUTSIDE RECORDS SUMMARY | 2025-01-06 12:24 | XMS_ITS | Patient Health Record ---
Author Organization [facility] Address [address] [place] [address] Care Team Providers Care Sports Centre Manager Name Role Phone Dax Villanueva MD Primary Care Provider Unavaila Gautam Denis [phone] Reason For Referral No Information Encounters Encounter Location Date Provider Diagnosis [facility] [address] [place] [phone] 09/24/2024 Gautam Damon [facility] [address] [place] [phone] 11/02/2024 Gautam Damon Plan Of Treatment No Information Insurance Providers Payer Name Payer Address Payer Phone Subscriber Number Group Number Insured Name Patient Relationship to Insured Coverage Start Date Coverage End Date MEDICARE OF [place] [address] [facility] [address] [id number] JENNY RAO Self - patient is the insured [facility] [address] [place] [phone] [id number] JENNY RAO Self - patient is the insured
--- OUTSIDE RECORDS SUMMARY | 2025-01-06 12:24 | XMS_ITS ---
Author Organization [facility] Address [address] [place] [phone] Care Team Providers Care Photoresist Printer Name Role Phone Dax Villanueva MD Primary Care Provider Gautam Gandhi [phone] Encounters Encounter Location Date Provider Diagnosis [facility] [address] [place] [phone] 11/02/2024 Gautam Damon Plan Of Treatment No Information Progress Notes * ANU RAOOB:1955 (69 yo F)Acc No.[id number]:11/02/2024 Patient:?JENNY RAO :1955???Age:69 Y???Sex:Female Address:[address], [place] [address] * true * Date:? Generated for Simran beckman/Margie/eTransmitting on:?01/06/2025 12:24 PM EDT
--- OUTSIDE RECORDS SUMMARY | 2025-01-06 12:25 | XMS_ITS ---
Author Organization [facility] Address [address] [place] [phone] Care Team Providers Care Paper Roller Name Role Phone Rich BRAY, Dax Primary Care Provider Chhayaa Gautam Denis [phone] REASON FOR VISIT Patient presents today for a positive cologuard Encounters Encounter Location Date Provider Diagnosis [facility] [address] [place] [phone] 11/02/2024 Gautam Damon Plan Of Treatment No Information Progress Notes * ANU RAOOB:1955 (69 yo F)Acc No.[id number]:11/02/2024 Progress Notes Patient:?JENNY RAO Provider:?Gautam Damon MD :1955???Age:69 Y???Sex:Female D ate:11/02/2024 Address:[address] [place] [address], [facility] Pcp:Dax Villanueva MD Subjective: * Chief Complaints: * ???1. Patient presents today for a positive cologuard. * Medical History:? Objective: * Vitals:? Assessment: Plan: * Treatment: * * The named appointment provid er may or may not be the originator of this progress note, and it is not deemed complete until electronically signed by the appointment provider. Sign off status: Pending * Provider:?Gautam Damon MD Date:? 025 Generated for Simran beckman/Margie/eTransmitting on:?01/06/2025 12:24 PM EDT
[2025-01-06 13:53] LABS: Anion Gap 12 (12-20); Blood Urea Nitrogen 17 mg/dL (9-16); Calcium 9.7 mg/dL (8.4-10.2); Carbon Dioxide 27 mmol/L (22-29); Chloride 107 mmol/L (96-108); Estimated Glomerular Filt Rate 45; Potassium 3.6 mmol/L (3.3-5.1); Sodium 142 mmol/L (135-145)
== END 2025-01-06 11:01 | disposition home or self-care (01) ==
LOC: HO.HMGCLDS 11:00
PROVIDERS: PCP Internal Medicine; Visit Provider Internal Medicine Nephrology
DX: I12.9 Hypertensive chronic kidney disease with stage 1 through stage 4 chronic kidney disease, or unspecified chronic kidney disease (principal); N18.31 Chronic kidney disease, stage 3a; E21.0 Primary hyperparathyroidism
CPT/HCPCS: 36415; 80051; 82310; 82565; 84520

== ENCOUNTER 2025-01-10 10:59 | Outpatient (AMB) | payer MEDICARE, OTHER, SELFPAY ==
[2025-01-10 11:58] VITALS: BP 126/80; PULSE 62; TEMP 36.4; O2SAT 98; BMI 34.5
--- NOTE | 2025-01-10 11:58 | MHC.PC.OV ---
Vital Signs 01/10/25 11:58 Height 5 ft 6 in Weight 214 lb BMI 34.5 BP 126/80 Blood Pressure Location Lt brachial Position Sitting Pulse 62 Pulse Source Pulse Oximeter Temp 97.5 F Temp Source Axillary Pulse Oximetry (%) 98 Oxygen Delivery Method Room Air Intake Visit Reasons: Routine Software Development Intern Required: No Accompanied by: Self / Same As Patient Allergies latex Allergy (Mild, Verified 01/16/25 14:14) Unknown azithromycin Allergy (Verified 01/16/25 14:14) Unknown Medication List - Last Reconciled 01/16/25 by Manuelito Boyd MD amlodipine 5 mg PO DAILY qtwistsrxg-jwlbrrfuwrtnu-jrrh 50-325-40 mg 2 tabs PO BEDTIME PRN ergocalciferol (vitamin D2) 1,250 mcg PO QWEEK furosemide 20 mg PO DAILY levothyroxine 125 mcg PO DAILY metoprolol tartrate 50 mg PO BID potassium chloride ER 20 mEq PO DAILY 90 days pravastatin 40 mg PO DAILY topiramate 25 mg PO DAILY Tobacco use date assessed: 01/10/25 Fall risk assessment: 2 + Falls in past year Last assessed Fall Risk: 01/10/25 Dental Screening Dental Screen Date: 01/10/25 Did you have a dental visit in the last 12 months?: Yes Did you have a dental problem in the last 6 months where you did not have access to dental care?: No HPI Routine HPI Details History of Present Illness The patient is a 69-year-old female presenting with a wellness visit and medication management for chronic conditions. She has a history of essential hypertension, managed with a routine including metoprolol, furosemide, and amlodipine. Her history of migraine headaches is addressed with a preventive dose of Topamax at 25 mg nightly. Ongoing management of her hyperlipidemia is with pravastatin, while hypothyroidism is managed with Synthroid. For over 20 years, she has had chronic kidney disease, with current renal function at 40%, closely monitored by Dr. Damon. Hyperparathyroidism has also been a concern, necessitating regular lab evaluation. She actively manages her risk for respiratory infections, given a past history of recurrent bronchitis, by ensuring vaccination for COVID-19, influenza, RSV, and pneumonia. Social History - Uses hearing aids. - Previously had medications filled by a nurse practitioner within the last two to three weeks. - Switched pharmacies recently for prescriptions. Review of Systems - Constitutional: Denies any acute health concerns, maintaining stable health. - Respiratory: Denies current respiratory issues, has a preventive plan for respiratory congestion. - Neurological: Reports migraine disorder, managed with preventive medication. - Renal: Chronic kidney disease with stable function. - Endocrine: Hyperparathyroidism under regular evaluation. - Denies: Any unexplained weight changes, poor appetite, unusual fatigue, or recent infections. Physical Exam General: Cooperative and healthy appearing Nutritional Appearance: Well nourished Orientation/consciousness: Patient oriented x3 Limitations: No limitations Head: Normal to inspection General: Appearance normal, both eyes and all related structures Neck: Normal visual inspection Chest: Normal palpation of entire chest wall Respiratory: Normal respiratory effort Neurology: Patient oriented x3 Results - Labs: Bloodwork conducted last Friday for renal function and parathyroid monitoring. Plan The patient's hypertension will be managed with the current antihypertensive regimen of metoprolol, furosemide, and amlodipine. Topamax will remain part of her migraine prophylaxis. Hyperlipidemia will continue to be managed via pravastatin, while hypothyroidism treatment will persist with Synthroid pending endocrinology follow-up. Chronic kidney disease and hyperparathyroidism will be monitored by Dr. Damon, with an emphasis on avoiding harmful NSAIDs. Preventive measures including vaccinations for respiratory infections will continue as part of her overall care plan. Patient was informed and verbally consented to the use of an ambient scribe for clinic note documentation during this visit. Discussion Notes I discussed the patient's ongoing management of her chronic conditions, including hypertension, migraine disorder, hyperlipidemia, hypothyroidism, chronic kidney disease, and hyperparathyroidism. We reviewed her medication regimen and confirmed that prescriptions would be managed as planned. I advised her on the importance of avoiding NSAIDs to protect kidney function. Lastly, we discussed her proactive approach to preventing respiratory infections through vaccination, and she is to follow up with Dr. Damon and the information technology professor as scheduled. Patient Instructions - Continue current medication regimen as prescribed. - Avoid using NSAIDs like Motrin. - Keep vaccinations up-to-date as part of preventive health measures. - Follow up with Dr. Damon for kidney monitoring. - Attend scheduled endocrinology appointment in February. - Inform healthcare providers about recent pharmacy changes for prescriptions. [facility] Medical History Hypertension Chronic kidney disease, stage 3a Surgical History History of ankle surgery Family History Mother No problems noted. Father No problems noted. Social History Patient Tobacco Use Status: Former Tobacco user Current occupational status: retired Cognitive needs: No Hearing needs: Yes Vision needs: Yes (rx glasses) Questionnaire PHQ-9 Over the last 2 weeks, how often have you been bothered by any of the following problems? 1. Little interest or pleasure in doing things: not at all 2. Feeling down, depressed, or hopeless: not at all 3. Trouble falling or staying asleep, or sleeping too much: not at all 4. Feeling tired or having little energy: not at all 5. Poor appetite or overeating: not at all 6. Feeling bad about yourself - or that you are a failure or have let yourself or your family down: not at all 7. Trouble concentrating on things, such as reading the newspaper or watching television: not at all 8. Moving or speaking so slowly that other people could have noticed. Or the opposite - being so fidgety or restless that you have been moving around a lot more than usual: not at all 9. Thoughts that you would be better off or of hurting yourself in some way: not at all Total score: 0 Source: Developed by Drs. Gautam Hansen, Fátima Merritt, Raymond Ridley and colleagues, with an educational farshad from [employer]. Thrive Questionnaire Date Thrive assessed: 01/10/25 I am a: Patient Within the past 12 months, did the food you bought not last and you didn't have the money to get more?: Never true Within the past 12 months, did you worry whether your food would run out before you got money to buy more?: Never true Do you have trouble paying for medicines?: No Do you have trouble getting transportation to medical appointments?: No Do you have trouble paying your heating and electricity bill?: No Do you have trouble taking care of your child, family member or friend?: No Do you have trouble with day-to-day activities such as bathing, preparing meals, shopping, managing finances, etc.?: No Are you currently unemployed and looking for a job?: No Are you interested in more education?: No THRIVE Score: 0 AUDIT C Alcohol Use Questionnaire (AUDIT-C) 1. How often do you have a drink containing alcohol?: Monthly or less 2. How many drinks containing alcohol do you have on a typical day when you are drinking?: 1 or 2 3. How often do you have six or more drinks on one occasion?: Never Total Score: 1 PERICO-7 AMB Questionnaire PERICO-7 Date PERICO - 7 assessed: 01/10/25 Feeling nervous, anxious, or on edge: 0 = Not at all Not being able to stop or control worryin = Not at all Worrying too much about different things: 0 = Not at all Trouble relaxin = Not at all Being so restless that it is hard to sit still: 0 = Not at all Becoming easily annoyed or irritable: 0 = Not at all Feeling afraid as if something awful might happen: 0 = Not at all Total PERICO-7 score (0-4 normal; 5-9 mild; 10-14 moderate; 15-21 severe): 0 Source: Developed by Drs. Gautam Hansen, Fátima Merritt, Raymond Ridley and colleagues, with an educational farshad from [employer]. Physical exam (Primary Care) Vital Signs: Last Vital Signs Temp 97.5 F 01/10/25 11:58 Pulse 62 01/10/25 11:58 BP 126/80 01/10/25 11:58 Pulse Ox 98 01/10/25 11:58 Oxygen Delivery Method Room Air 01/10/25 11:58 BMI result Body Mass Index 34.5 Tobacco/Smoking Status: Tobacco use Status Tobacco use date assessed 01/10/25 01/10/25 12:07 Patient Tobacco Use Status Former Tobacco user 01/10/25 12:07 PHQ-9: PHQ-9 Score PHQ-9: Total score 0 01/10/25 12:07 Thrive Assessment: Date of Thrive Assessment Date Thrive assessed 01/10/25 01/10/25 12:07 Coding Level of Care Code New Pt Level 4 (21988) Complex EM visit Add On G2211 Diagnoses Secondary hyperparathyroidism (of renal origin) N25.81 Primary hypertension I10 Hypertension type: primary hypertension Assessment & Plan Assessment & Plan (1) Secondary hyperparathyroidism (of renal origin): Code(s): N25.81 - Secondary hyperparathyroidism of renal origin Category: Medical Plan: Is following up with the hospital personnel director (2) Hypertension: Code(s): I10 - Essential (primary) hypertension Category: Medical Qualifiers: Hypertension type: primary hypertension Qualified Code(s): I10 - Essential (primary) hypertension Plan: BP is in range. Plan As above
--- OUTSIDE RECORDS SUMMARY | 2025-01-10 13:10 | XMS_ITS | Patient Health Record ---
Author Organization [facility] Address [address] [place] [address] Care Team Providers Care Trim Operator Name Role Phone Dax Villanueva MD Primary Care Provider Unavaila Gautam Denis [phone] Reason For Referral No Information Encounters Encounter Location Date Provider Diagnosis [facility] [address] [place] [phone] 09/24/2024 Gautam Damon [facility] [address] [place] [phone] 11/02/2024 Gautam Damon Plan Of Treatment No Information Insurance Providers Payer Name Payer Address Payer Phone Subscriber Number Group Number Insured Name Patient Relationship to Insured Coverage Start Date Coverage End Date MEDICARE OF [place] [address] [facility] [address] [id number] JENNY RAO Self - patient is the insured [facility] [address] [place] [phone] [id number] JENNY RAO Self - patient is the insured
--- OUTSIDE RECORDS SUMMARY | 2025-01-10 13:11 | XMS_ITS ---
Author Organization [facility] Address [address] [place] [phone] Care Team Providers Care Organ Pipe Voicer Name Role Phone Dax Villanueva MD Primary Care Provider Gautam Gandhi [phone] Encounters Encounter Location Date Provider Diagnosis [facility] [address] [place] [phone] 11/02/2024 Gautam Damon Plan Of Treatment No Information Progress Notes * ANU RAOOB:1955 (69 yo F)Acc No.[id number]:11/02/2024 Patient:?JENNY RAO :1955???Age:69 Y???Sex:Female Address:[address], [place] [address] * true * Date:? Generated for Simran beckman/Margie/eTransmitting on:?01/10/2025 01:10 PM EDT
--- OUTSIDE RECORDS SUMMARY | 2025-01-10 13:11 | XMS_ITS ---
Author Organization [facility] Address [address] [place] [address] Care Team Providers Care Computer Hardware Designer Name Role Phone Dax Villanueva MD Primary Care Provider Gautam Gandhi [phone] Encounters Encounter Location Date Provider Diagnosis [facility] [address] [place] [phone] 09/24/2024 Gautam Damon Plan Of Treatment No Information Progress Notes * ANU RAOOB:1955 (69 yo F)Acc No.[id number]:09/24/2024 Patient:?JENNY RAO :1955???Age:69 Y???Sex:Female Address:[address], [place] [address] * true * Date:? Generated for Simran beckman/Margie/eTanthonysmitting on:?01/10/2025 01:10 PM EDT
--- OUTSIDE RECORDS SUMMARY | 2025-01-10 13:11 | XMS_ITS ---
Author Organization [facility] Address [address] [place] [phone] Care Team Providers Care Correctional Casework Specialist Name Role Phone Rich BRAY, Dax Primary Care Provider Chhayaa Gautam Denis [phone] REASON FOR VISIT Patient presents today for a positive cologuard Encounters Encounter Location Date Provider Diagnosis [facility] [address] [place] [phone] 11/02/2024 Gautam Damon Plan Of Treatment No Information Progress Notes * ANU RAOOB:1955 (69 yo F)Acc No.[id number]:11/02/2024 Progress Notes Patient:?JENNY RAO Provider:?Gautam Damon MD :1955???Age:69 Y???Sex:Female D ate:11/02/2024 Address:[address] [place] [address], [id number] Pcp:Dax Villanueva MD Subjective: * Chief Complaints: [...] MD Date:? 025 Generated for Simran beckman/Margie/eTransmitting on:?01/10/2025 01:10 PM EDT
== END 2025-01-10 12:20 | disposition home or self-care (01) ==
LOC: HO.HMCHD 11:00
PROVIDERS: PCP Internal Medicine; Visit Provider Internal Medicine
DX: N25.81 Secondary hyperparathyroidism of renal origin (principal); I10 Essential (primary) hypertension

== ENCOUNTER → 2025-01-10 10:59 | Outpatient (BNVA) | payer MEDICARE, OTHER, SELFPAY | PROVIDERS: PCP Internal Medicine; Visit Provider Internal Medicine | DX: N25.81 Secondary hyperparathyroidism of renal origin (principal); I10 Essential (primary) hypertension | CPT/HCPCS: 99202 ==

== ENCOUNTER 2025-01-14 10:43 | Outpatient (AMB) | payer MEDICARE, SELFPAY ==
--- NOTE | 2025-01-14 11:23 | HO.NEPHOV ---
Vital Signs 01/14/25 11:24 Height 5 ft 6 in Weight 214 lb 2 oz BMI 34.6 BP 115/60 Blood Pressure Location Lt brachial Position Sitting Pulse 61 Pulse Source Pulse Oximeter Pulse Oximetry (%) 99 Oxygen Delivery Method Room Air Intake Visit Reasons: January/u-Conf Intake Note: Patient needs a refill on potassium chloride. Dairy Equipment Installer Required: No Accompanied by: Self / Same As Patient Allergies latex Allergy (Mild, Verified 01/14/25 11:27) Unknown azithromycin Allergy (Verified 01/14/25 11:27) Unknown Do you need a note to return to daycare/school/sports/work: No HPI Comments Details: Claire was seen in follow-up of her chronic kidney disease and hypertension. She feels well. She has a positive Cologuard but has not had a colonoscopy yet. She does not have any chest pain, shortness of breath, paroxysmal nocturnal dyspnea, orthopnea, pedal edema, urinary or orthostatic symptoms. She is compliant with her medications. She has not gained any weight. Her blood pressure has been at goal. She has a parathyroid adenoma. She has an appointment with Application Specialist [facility] Medical History Hypertension Chronic kidney disease, stage 3a Surgical History History of ankle surgery Family History Mother No problems noted. Father No problems noted. Social History Patient Tobacco Use Status: Former Tobacco user Current occupational status: retired Cognitive needs: No Hearing needs: Yes Vision needs: Yes (rx glasses) Review of Systems Const All systems reviewed & are unremarkable except as noted in HPI and below Physical Exam Vital Signs: Last Vital Signs Pulse 61 01/14/25 11:24 BP 115/60 01/14/25 11:24 Pulse Ox 99 01/14/25 11:24 Oxygen Delivery Method Room Air 01/14/25 11:24 BMI result Body Mass Index 34.6 Const General: comfortable and no acute distress Orientation/consciousness: patient oriented x3 HEENT Head: Yes normocephalic Mouth: Normal oral and palatal mucosa present Eyes EOM: EOMs intact bilaterally Neck Neck: Yes supple Resp Auscultation: clear to auscultation bilaterally Cardio Jugular venous distension: no JVD Rate: regular rate GI Palpation (GI): Soft to palpation Auscultation: normal bowel sounds General: Yes no CVA tenderness Back/Spine/Pelvis Back: no CVA tenderness Skin General skin exam: no rashes or lesions noted Neuro General: patient oriented x3 and moves all extremities Extrem General: Yes no pedal edema Results Reviewed Nephrology Results: Hgb 16.4 g/dl (12.0-16.0) H 09/07/24 WBC 7.7 X10*3/uL (4.8-10.8) 09/07/24 Plt Count 307 X10*3/uL (160-400) 09/07/24 Sodium 142 mmol/L (135-145) 01/06/25 Potassium 3.6 mmol/L (3.3-5.1) 01/06/25 Chloride 107 mmol/L (96-108) 01/06/25 Carbon Dioxide 27 mmol/L (22-29) 01/06/25 BUN 17 mg/dL (9-16) H 01/06/25 Creatinine 1.18 mg/dL (0.5-1.4) 01/06/25 Calcium 9.7 mg/dL (8.4-10.2) 01/06/25 PTH Intact 276.4 pg/mL (8.7-77.1) H 10/08/24 Assessment & Plan Assessment & Plan (1) Primary hyperparathyroidism: Code(s): E21.0 - Primary hyperparathyroidism Category: Medical (2) Proteinuria: Code(s): R80.9 - Proteinuria, unspecified Category: Medical Qualifiers: Proteinuria type: other Qualified Code(s): R80.8 - Other proteinuria (3) Hypertension: Code(s): I10 - Essential (primary) hypertension Category: Medical Qualifiers: Hypertension type: primary hypertension Qualified Code(s): I10 - Essential (primary) hypertension (4) CKD (chronic kidney disease) stage 3, GFR 30-59 ml/min: Code(s): N18.30 - Chronic kidney disease, stage 3 unspecified Category: Medical Qualifiers: Chronic kidney disease stage 3 subtype: stage 3a (GFR 45-59) Qualified Code(s): N18.31 - Chronic kidney disease, stage 3a Plan Her renal functions are currently stable. Her blood pressure has been at goal. She would benefit by some more weight loss. She should maintain a low-sodium diet. Her volume status quite optimal. She avoids nonsteroidal anti-inflammatories and maintain good hydration. She has an endocrinology appointment . She is a candidate for sensipar which she is going to discuss with endocrinology. I did not make any other medication changes today. Answered all questions. Orders: Orders Protein Creatinine Ratio, Ur 6 Months E21.0 - Primary hyperparathyroidism, I10 - Essential (primary) hypertension, R80.8 - Other proteinuria Blood Urea Nitrogen 6 Months E21.0 - Primary hyperparathyroidism, I10 - Essential (primary) hypertension, R80.8 - Other proteinuria Calcium 6 Months E21.0 - Primary hyperparathyroidism, I10 - Essential (primary) hypertension, R80.8 - Other proteinuria Creatinine 6 Months E21.0 - Primary hyperparathyroidism, I10 - Essential (primary) hypertension, R80.8 - Other proteinuria Electrolytes 6 Months E21.0 - Primary hyperparathyroidism, I10 - Essential (primary) hypertension, R80.8 - Other proteinuria Coding Level of Care Code Est Pt Level 4 (23409) Diagnoses Primary hyperparathyroidism E21.0 Other proteinuria R80.8 Proteinuria type: other Primary hypertension I10 Hypertension type: primary hypertension Stage 3a chronic kidney disease N18.31 Chronic kidney disease stage 3 subtype: stage 3a (GFR 45-59)
[2025-01-14 11:24] VITALS: BP 115/60; PULSE 61; O2SAT 99; BMI 34.6
--- OUTSIDE RECORDS SUMMARY | 2025-01-14 11:36 | XMS_ITS ---
Author Organization [facility] Address [address] [place] [phone] Care Team Providers Care Junction Maker Name Role Phone Dax Villanueva MD Primary Care Provider Gautam Gandhi [phone] Encounters Encounter Location Date Provider Diagnosis [facility] [address] [place] [phone] 11/02/2024 Gautam Damon Plan Of Treatment No Information Progress Notes * ANU RAOOB:1955 (69 yo F)Acc No.[id number]:11/02/2024 Patient:?JENNY RAO :1955???Age:69 Y???Sex:Female Address:[address], [place] [address] * true * Date:? Generated for Simran beckman/Margie/eTanthonysmitting on:?01/14/2025 11:35 AM EDT
--- OUTSIDE RECORDS SUMMARY | 2025-01-14 11:36 | XMS_ITS ---
Author Organization [facility] Address [address] [place] [phone] Care Team Providers Care Editorial Director Name Role Phone Rich BRAY, Dax Primary Care Provider Chhayaa Gautam Denis [phone] REASON FOR VISIT Patient presents today for a positive cologuard Encounters Encounter Location Date Provider Diagnosis [facility] [address] [place] [phone] 11/02/2024 Gautam Damon Plan Of Treatment No Information Progress Notes * ANU RAOOB:1955 (69 yo F)Acc No.[id number]:11/02/2024 Progress Notes Patient:?JENNY RAO Provider:?Gautam Damon MD :1955???Age:69 Y???Sex:Female D ate:11/02/2024 Address:[address] [place] [address], [id number] Pcp:Dax Villanueva MD Subjective: * Chief Complaints: [...] MD Date:? 025 Generated for Simran beckman/Margie/eTransmitting on:?01/14/2025 11:36 AM EDT
--- OUTSIDE RECORDS SUMMARY | 2025-01-14 11:36 | XMS_ITS ---
Author Organization [facility] Address [address] [place] [phone] Care Team Providers Care Health Informatics Advisor Name Role Phone Dax Villanueva MD Primary Care Provider Gautam Gandhi [phone] Encounters Encounter Location Date Provider Diagnosis [facility] [address] [place] [phone] 09/24/2024 Gautam Damon Plan Of Treatment No Information Progress Notes * ANU RAOOB:1955 (69 yo F)Acc No.[id number]:09/24/2024 Patient:?JENNY RAO :1955???Age:69 Y???Sex:Female Address:[address], [place] [address] * true * Date:? Generated for Simran beckman/Margie/eTanthonysmitting on:?01/14/2025 11:35 AM EDT
--- OUTSIDE RECORDS SUMMARY | 2025-01-14 11:36 | XMS_ITS | Patient Health Record ---
Author Organization [facility] Address [address] [place] [address] Care Team Providers Care Beautician Apprentice Name Role Phone Dax Villanueva MD Primary Care Provider Unavaila Gautam Denis [phone] Reason For Referral No Information Encounters Encounter Location Date Provider Diagnosis [facility] [address] [place] [phone] 09/24/2024 Gautam Damon [facility] [address] [place] [phone] 11/02/2024 Gautam Damon Plan Of Treatment No Information Insurance Providers Payer Name Payer Address Payer Phone Subscriber Number Group Number Insured Name Patient Relationship to Insured Coverage Start Date Coverage End Date MEDICARE OF [place] [address] [place] [address] [phone] [id number] JENNY RAO Self - patient is the insured [facility] [address] [place] [phone] [id number] JENNY RAO Self - patient is the insured
== END 2025-01-14 11:51 | disposition home or self-care (01) ==
LOC: HO.HKA 10:43
PROVIDERS: PCP Internal Medicine; Visit Provider Internal Medicine Nephrology
DX: E21.0 Primary hyperparathyroidism (principal); R80.8 Other proteinuria; I10 Essential (primary) hypertension; N18.31 Chronic kidney disease, stage 3a
CPT/HCPCS: 99214

== ENCOUNTER → 2025-01-14 10:43 | Outpatient (BNVA) | payer MEDICARE, SELFPAY | PROVIDERS: PCP Internal Medicine; Visit Provider Internal Medicine Nephrology | DX: I12.9 Hypertensive chronic kidney disease with stage 1 through stage 4 chronic kidney disease, or unspecified chronic kidney disease (principal); N18.31 Chronic kidney disease, stage 3a; R80.8 Other proteinuria; E21.0 Primary hyperparathyroidism | CPT/HCPCS: 99212 ==

== ENCOUNTER 2025-02-03 09:45 | Outpatient (AMB) | payer MEDICARE, OTHER, SELFPAY ==
[2025-02-03 09:47] VITALS: BP 132/72; PULSE 59; O2SAT 97; BMI 35.0
--- NOTE | 2025-02-03 09:47 | MHC.OFFVIS ---
Vital Signs 02/03/25 09:47 Height 5 ft 6 in Weight 216 lb 14.958 oz BMI 35.0 BP 132/72 Blood Pressure Location Lt brachial Position Sitting Pulse 59 Pulse Source Pulse Oximeter Pulse Oximetry (%) 97 Oxygen Delivery Method Room Air Intake Visit Reasons: Hyperparathyroidism Intake Note: New patient present today for Hyperparathyroidism. Tassel Making Machine Operator Required: No Accompanied by: Self / Same As Patient Allergies latex Allergy (Mild, Verified 02/03/25 09:50) Unknown azithromycin Allergy (Verified 02/03/25 09:50) Unknown Medication List - Last Reconciled 02/03/25 by Renee Adam MD amlodipine 5 mg PO DAILY rhbmvjuyoj-ctbedrkhvdeyr-upds 50-325-40 mg 2 tabs PO BEDTIME PRN ergocalciferol (vitamin D2) 1,250 mcg PO QWEEK furosemide 20 mg PO DAILY levothyroxine 125 mcg PO DAILY metoprolol tartrate 50 mg PO BID potassium chloride ER 20 mEq PO DAILY 90 days pravastatin 40 mg PO DAILY topiramate 25 mg PO DAILY HPI Comments Details: 69-year-old female coming in today for initial evaluation of elevated PTH levels. Otherwise history significant for hypertension, CKD stage 3, hypothyroidism. Chart review done which shows calcium levels have been anywhere from 9.7 to 10.2 over the past 2-3 years with most recent labs from 01/06/2025 with a calcium of 9.7. Labs from 06/29/2024 showed calcium of 9.7, with PTH of 365. EGFR 41, creatinine 1.28. Phosphorus 3.2. Labs repeated 09/07/2024 showed EGFR of 32, calcium of 10, albumin of 4.2 corrected calcium would be 9.8, vitamin-D elevated at 104.3, TSH of 0.82, PTH repeated October 2024 was again elevated at 276.4. No recent DEXA scan, denies history of osteoporosis. Fracture history: Left foot and right tibia last/fibula in 2017 after fall requiring surgery Metatarsal fracture in 2023, trip from a step Kidney stones: No Hematuria or abdominal flank pain: No HCTZ: No Cameron: No Tums or calcium tablets: No No family history of kidney stones or calcium problems vitamin D: taking 5000 units weekly since January plus maybe something daily she isnt sure of dose Yogurt once a week , cheese: 1-2 slice per week , no milk Sestamibi scan 10/09/2023 described equivocal focus of abnormal sestamibi activity along the right inferior thyroid pole, she was evaluated by Endocrine surgery with Dr. Juan J Tee at [facility], who performed an in office neck ultrasound as well where the right thyroid lobe was heterogenous and slightly larger than the left with no distinct nodules, appearance consistent with thyroiditis, she has a history of Robbi's thyroiditis, no distinct parathyroid enlargement noted. The sestamibi scan with more prominent activity in the right side of the thyroid lobe noted is likely due to discrepancy in size size, no obvious parathyroid adenoma. Physical exam General: sitting comfortably in no acute distress HEENT: normocephalic/atraumatic Cardiac: Normal heart rate Pulm: Normal pulmonary effort Abd: not distended Extremities: Does have right ankle deformity from previous fractures Laboratory Tests 09/24/18 01/20/19 10/14/19 06:18 16:10 10:28 Creatinine 1.22 1.25 Estimated GFR Calcium Phosphorus Albumin 4.3 4.5 4.7 25-OH Vitamin D Total 37.7 35.2 TSH Free T4 PTH Intact 01/13/20 07/11/20 10/04/20 10:46 07:45 08:20 Creatinine Estimated GFR 40 Calcium 10.0 9.7 9.1 D Phosphorus Albumin 4.4 4.2 4.1 25-OH Vitamin D Total 33.9 TSH Free T4 PTH Intact 01/02/21 04/12/21 07/17/21 07:42 07:04 08:11 Creatinine Estimated GFR 43 Calcium 9.3 9.6 9.9 Phosphorus Albumin 4.1 4.1 25-OH Vitamin D Total TSH Free T4 PTH Intact 09/14/21 04/05/22 04/05/22 09:00 08:40 08:40 Creatinine Estimated GFR Calcium 10.1 9.7 9.9 Phosphorus Albumin 4.2 25-OH Vitamin D Total 41.8 42.0 TSH Free T4 PTH Intact 93 H 07/09/22 11/05/22 03/05/23 06:59 10:45 09:36 Creatinine Estimated GFR Calcium 9.8 9.7 10.2 Phosphorus Albumin 4.2 4.3 4.3 25-OH Vitamin D Total TSH Free T4 PTH Intact 06/11/23 09/25/23 03/22/24 10:20 07:28 06:30 Creatinine 1.18 Estimated GFR 45 Calcium 10.1 9.8 9.4 Phosphorus Albumin 4.1 4.0 4.0 25-OH Vitamin D Total TSH Free T4 PTH Intact 06/29/24 09/07/24 10/08/24 07:08 07:51 10:30 Creatinine 1.28 1.61 H Estimated GFR 41 32 Calcium 9.7 10.0 Phosphorus 3.2 Albumin 4.2 25-OH Vitamin D Total 104.3 116.4 TSH 0.82 Free T4 1.50 PTH Intact 365.0 H 276.4 H 01/06/25 11:10 Creatinine 1.18 Estimated GFR 45 Calcium 9.7 Phosphorus Albumin 25-OH Vitamin D Total TSH Free T4 PTH Intact NM PARATHYROID SCAN 08/09/24 CLINICAL INFORMATION: Secondary hyperparathyroidism of renal origin. COMPARISON: No previous radionuclide parathyroid or thyroid imaging studies are available for comparison. The patient continues on levothyroxine which she has taken before 50+ years. TECHNIQUE: A double radionuclide study of the thyroid bed region and upper chest in multiple projections was performed 4 hours after the oral administration of 1.0 mCi I-123 sodium iodide and immediately following the intravenous administration of 23 mCi Tc-99m sestamibi. Repeat imaging was performed 2 hours later. The iodide images were electronically subtracted from the sestamibi images using different weighting factors. FINDINGS: The radioiodine images visualize the thyroid gland, but the intensity of activity is diminished, likely due to significantly decreased radioiodine uptake secondary to the patient's long-term use of exogenous thyroid hormone. The right lobe slightly larger and more intense than the left, but no definite focal abnormalities are present. Technetium 99m sestamibi images also show asymmetrical activity with the right lobe larger and more intense than the left. On the delayed images at 2 hours, there is a subtle focus of more prominently increased sestamibi activity extending inferiorly from the lateral aspect of the lower pole the right lobe, visualized best on the anterior view. Computer-generated digital subtraction images are suboptimal because of the low count statistics on the radioiodine images and do not provide further information. NM/NM parathyroid IMPRESSION: An equivocal focus of abnormal sestamibi activity is suggested extending inferiorly from the lateral aspect of the lower pole of the right thyroid lobe. The finding is considered equivocal. There are no other abnormalities suspicious for a parathyroid adenoma. The activity in the thyroid gland is asymmetrical, with the right lobe larger and more intense on the left, but no additional focal abnormalities are present in the thyroid gland. [facility] Medical History Hypertension Chronic kidney disease, stage 3a Surgical History History of ankle surgery Family History Mother No problems noted. Father No problems noted. Social History Patient Tobacco Use Status: Former Tobacco user Current occupational status: retired Cognitive needs: No Hearing needs: Yes Vision needs: Yes (rx glasses) Physical Exam Vital Signs: Last Vital Signs Pulse 59 02/03/25 09:47 BP 132/72 02/03/25 09:47 Pulse Ox 97 02/03/25 09:47 Oxygen Delivery Method Room Air 02/03/25 09:47 BMI result Body Mass Index 35.0 Assessment & Plan Assessment & Plan (1) Primary hyperparathyroidism: Code(s): E21.0 - Primary hyperparathyroidism Category: Medical Plan: 69-year-old female coming in today for initial evaluation of PTH elevation. Otherwise history significant for hypertension, CKD stage 3 and hypothyroidism. Chart review done which shows calcium levels have been anywhere from 9.7 to 10.2 over the past 2-3 years with most recent labs from 01/06/2025 with a calcium of 9.7. Labs from 06/29/2024 showed calcium of 9.7, with PTH of 365. EGFR 41, creatinine 1.28. Phosphorus 3.2. Labs repeated 09/07/2024 showed EGFR of 32, calcium of 10, albumin of 4.2 corrected calcium would be 9.8, vitamin-D elevated at 104.3, TSH of 0.82, PTH repeated October 2024 was again elevated at 276.4. She does have some history of fracture of the right ankle and tibia fibula in 2016, unclear whether the fall was high impact or not. No other fragility fracture. No history of kidney stones. Differentials for elevated PTH could be possibly secondary hyperparathyroidism in the setting of kidney disease, her calcium levels are in the high normal side, but that could be because of high vitamin-D levels, her vitamin-D in the are in the 100s and she continues on vitamin-D supplementation. I am going to stop this now. This could also be primary hyperparathyroidism, however we will evaluate 24 hour urine calcium levels as well as renal ultrasound and DEXA scan. Other differential could possibly be normocalcemic hyperparathyroidism. She needs further evaluation with bone density scan, renin labs ultrasound and 24 hour urine calcium levels. Given she has very poor nutritional intake of calcium, I have asked her to increase her calcium intake in diet to about 2-3 servings of calcium rich foods daily and then do the blood work and urine test in 6 weeks so that her urine calcium is not falsely low because of poor nutritional intake. If this is possibly primary hyperparathyroidism, given reduced get any function she would qualify for surgery, she had a sestamibi scan in October of 2023 which showed some abnormal sestamibi activity along the right inferior thyroid pole however she was evaluated by Endocrine surgery and that was thought to be due to discrepancy in size, no clear parathyroid adenoma identified. Plan: -stopped vitamin-D supplements -increase calcium intake to 2-3 servings of calcium rich foods daily -after 6 weeks of doing increase calcium intake to 24 hour urine calcium levels as well as blood work -ordered bone density scan including the forearm -ordered renal ultrasound Plan I spent 40 minutes in reviewing the record, seeing the patient and documenting in the medical record. Orders: Orders Albumin Level 6 Weeks E21.0 - Primary hyperparathyroidism, N18.31 - Chronic kidney disease, stage 3a Calcium 6 Weeks E21.0 - Primary hyperparathyroidism, N18.31 - Chronic kidney disease, stage 3a Parathyroid Hormone Intact 6 Weeks E21.0 - Primary hyperparathyroidism, N18.31 - Chronic kidney disease, stage 3a Vitamin D 25-OH Total 6 Weeks E21.0 - Primary hyperparathyroidism, N18.31 - Chronic kidney disease, stage 3a Magnesium 6 Weeks E21.0 - Primary hyperparathyroidism, N18.31 - Chronic kidney disease, stage 3a Creatinine 6 Weeks E21.0 - Primary hyperparathyroidism, N18.31 - Chronic kidney disease, stage 3a XR DEXA appendicular skeleton Today E21.0 - Primary hyperparathyroidism, N18.31 - Chronic kidney disease, stage 3a US renal BI Today E21.0 - Primary hyperparathyroidism, N18.31 - Chronic kidney disease, stage 3a Calcium, Ionized 6 Weeks E21.0 - Primary hyperparathyroidism, N18.31 - Chronic kidney disease, stage 3a Phosphorus 6 Weeks E21.0 - Primary hyperparathyroidism, N18.31 - Chronic kidney disease, stage 3a Calcium, 24 Hr Ur 6 Weeks E21.0 - Primary hyperparathyroidism, N18.31 - Chronic kidney disease, stage 3a Creatinine, 24 Hr Group 6 Weeks E21.0 - Primary hyperparathyroidism, N18.31 - Chronic kidney disease, stage 3a Medications: Discontinued ergocalciferol (vitamin D2) Discontinued Reason: Doctor's Order 1,250 mcg PO QWEEK 14 caps 0RF Patient Instructions: Stop vitamin D Start incorporating calcium in your diet by taking 2-3 servings of calcium rich foods daily ( milk, almond milk fortified one, yogurt , cheese, broccoli, kale, spinach, tofu set in calcium, collards ) After 6 weeks of doing this do 24 hr urine collection plus same day as you hand in the urine do blood work 24 hr urine collection instructions You have been asked to collect your urine for 24 hours to assess for calcium excretion. You must choose a 24 hour period of time when you will be home. The morning of the first day, DISCARD the FIRST morning void and then note the time. You will collect every single void from then on for 24 hours. For example, if you wake up at 6am and urinate, flush down that void. You will then collect every drop of urine all day and all night through 6am the following day. You will urinate one last time at 6am for the collection. The jug of urine must be kept in the refrigerator until you bring it to the lab. Do bone density scan ,someone will call to schedule this Do ultrasound of the kidneys ,someone will call to schedule this Follow up in 8 weeks to discuss results Coding Level of Care Code New Pt Level 4 (82877) Diagnoses Primary hyperparathyroidism E21.0 Time Spent (min) 45
== END 2025-02-03 10:47 | disposition home or self-care (01) ==
LOC: HO.ENCR 09:46
PROVIDERS: PCP Internal Medicine; Visit Provider Student in an Organized Health Care Education/Training Program
DX: E21.0 Primary hyperparathyroidism (principal)
CPT/HCPCS: 99204

== ENCOUNTER → 2025-02-03 09:45 | Outpatient (BNVA) | payer MEDICARE, OTHER, SELFPAY | PROVIDERS: PCP Internal Medicine; Visit Provider Student in an Organized Health Care Education/Training Program | DX: E21.0 Primary hyperparathyroidism (principal) | CPT/HCPCS: 99202 ==

== ENCOUNTER 2025-03-11 09:48 | Outpatient (REF) | payer MEDICARE, OTHER, SELFPAY ==
--- NOTE | ~2025-03-11 | US_ITS ---
EXAMINATION: US KIDNEY BILATERAL HISTORY: E21.0 - Primary hyperparathyroidism TECHNIQUE: Real-time grayscale ultrasound imaging of the kidneys was performed and images were reviewed. COMPARISON: Comparison is made with the prior examination dated 05/17/2010. FINDINGS: Right kidney: The right kidney measures 9.3 x 3.7 x 4.3 cm. Renal parenchymal echotexture and thickness are normal. There are no masses. There is no hydronephrosis or renal calculi. Left Kidney: The left kidney measures 9.5 x 4.5 x 5.4 cm. Renal parenchymal echotexture and thickness are normal. There are multiple parapelvic cysts versus mild to moderate hydronephrosis. No definite calculi are identified. US/US renal BI IMPRESSION: Multiple left renal parapelvic cysts versus mild to moderate hydronephrosis. This could be further imaged with CT urography. Electronically signed by: Gautam Shrestha MD 03/11/2025 01:09 PM EDT
--- NOTE | ~2025-03-11 | MM_ITS ---
EXAMINATION: DXA BONE DENSITY EXTREMITY HISTORY: E21.0 - Primary hyperparathyroidism TECHNIQUE: Respiratory Motion Dual energy absorptiometry (DEXA) of the lumbar spine, total left hip, femoral neck, and distal forearm was performed. COMPARISON: There are no prior studies for comparison. FINDINGS: The bone mineral density of the lumbar spine is 0.981, corresponding to a T-score of -1.7, and a Z-score of -1.1. This is indicative of osteopenia. The bone mineral density of the left total hip is 0.772, corresponding to a T-score of -1.9, and a Z-score of -1.1. This is indicative of osteopenia. The bone mineral density of the left femoral neck is 0.695, corresponding to a T-score of -2.5, and a Z-score of -1.4. This is indicative of osteoporosis. The bone mineral density of the left femoral neck is 0.687, corresponding to a T-score of -2.3, and a Z-score of -0.3. This is indicative of osteopenia. FRACTURE RISK: The FRAX index suggests a risk of major osteoporotic fracture of 32.7%, and of hip fracture 9.7%. MM/XR DEXA appendicular skeleton IMPRESSION: Based on bone mineral density, and according to World Health Organization (WHO) criteria, the diagnosis is consistent with osteoporosis. All bone density values are in grams per centimeter squared (g/cm2). Statistically, 68% of repeat scans fall within 1 SD (+/- 0.010 g/cm2 for AP spine L1-L4) and 1 SD (+/- 0.012 g/cm2 for femur total) FRAX is a trademark of the [employer]'s [place] [employer] Met[employer] Bone Disease, a World Health Organization (WHO) Collaborating Center. Electronically signed by: Gautam Shrestha MD 03/11/2025 12:34 PM EDT
--- OUTSIDE RECORDS SUMMARY | 2025-03-11 10:32 | XMS_ITS | Patient Health Record ---
Author Organization [facility] Address [address] [place] [address] Care Team Providers Care Manager Clinical Services Name Role Phone Dax Villanueva MD Primary Care Provider Unavaila Gautam Denis [phone] Reason For Referral No Information Encounters Encounter Location Date Provider Diagnosis [facility] [address] [place] [phone] 09/24/2024 Gautam Damon [facility] [address] [place] [phone] 11/02/2024 Gautam Damon Plan Of Treatment No Information Insurance Providers Payer Name Payer Address Payer Phone Subscriber Number Group Number Insured Name Patient Relationship to Insured Coverage Start Date Coverage End Date MEDICARE OF [place] [address] [place] [address] [id number] JENNY RAO Self - patient is the insured [facility] [address] [place] [address] [phone] [id number] JENNY RAO Self - patient is the insured
== END 2025-03-11 09:49 | disposition home or self-care (01) ==
LOC: HO.MAMMO 09:48
PROVIDERS: PCP Internal Medicine; Visit Provider Student in an Organized Health Care Education/Training Program
DX: E21.0 Primary hyperparathyroidism (principal); N18.31 Chronic kidney disease, stage 3a
CPT/HCPCS: 76775; 77081

== ENCOUNTER → 2025-03-11 10:30 | Outpatient (BNV) | payer MEDICARE, OTHER, SELFPAY | PROVIDERS: PCP Internal Medicine; Visit Provider Radiology Diagnostic Radiology | DX: E28.39 Other primary ovarian failure (principal); E21.0 Primary hyperparathyroidism | CPT/HCPCS: 76775; 77081 ==

== ENCOUNTER 2025-03-30 08:23 | Outpatient (REF) | payer MEDICARE, OTHER, SELFPAY ==
--- OUTSIDE RECORDS SUMMARY | 2025-03-30 08:37 | XMS_ITS | Patient Health Record ---
Author Organization [facility] Address [address] [place] [address] Care Team Providers Care Clinical Research Technician Name Role Phone Dax Villanueva MD Primary Care Provider Unavaila Gautam Denis [phone] Reason For Referral No Information Encounters Encounter Location Date Provider Diagnosis [facility] [address] [place] [phone] 09/24/2024 Gautam Damon [facility] [address] [place] [phone] 11/02/2024 Gautam Damon Plan Of Treatment No Information Insurance Providers Payer Name Payer Address Payer Phone Subscriber Number Group Number Insured Name Patient Relationship to Insured Coverage Start Date Coverage End Date MEDICARE OF [place] [address] [place] [address] [id number] JENNY RAO Self - patient is the insured [facility] [address] [place] [address] [id number] JENNY RAO Self - patient is the insured
[2025-03-30 10:11] LABS: Albumin Level 4.2 g/dL (3.5-5.0); Calcium 9.6 mg/dL (8.4-10.2); Estimated Glomerular Filt Rate 40; Magnesium 2.2 mg/dL (1.6-2.6); Phosphorus 3.1 mg/dL (2.7-4.5)
[2025-03-30 10:30] LABS: Vitamin D 25-OH Total 52.3 ng/mL (>30)
[2025-03-30 11:17] LABS: Parathyroid Hormone Intact 370.9 pg/mL (8.7-77.1)
[2025-03-30 11:37] LABS: Creatinine, mg/dL 52.56
[2025-03-30 11:51] LABS: Creatinine, 24Hr Urine 0.7 G/Day (1.0-2.0); Total Volume 24 Hour Urine 1425 mL
[2025-04-01 15:23] LABS: Calcium, Ionized 5.3 mg/dL (4.7-5.5)
[2025-04-01 21:19] LABS: Calcium, 24 Hr Urine 165 mg/24 h; Calcium/Creatinine Ratio 204 mg/g creat (30-275); Creatinine 24Hr Urine 0.81 g/24 h (0.50-2.15)
== END 2025-03-30 08:24 | disposition home or self-care (01) ==
LOC: HO.10HDL 08:23
PROVIDERS: Visit Provider Student in an Organized Health Care Education/Training Program
DX: E21.0 Primary hyperparathyroidism (principal); N18.31 Chronic kidney disease, stage 3a
CPT/HCPCS: 36415; 82040; 82306; 82310; 82330; 82340; 82565; 82570; 83735; 83970; 84100

== ENCOUNTER 2025-04-05 07:57 | Outpatient (AMB) | payer MEDICARE, OTHER, SELFPAY ==
[2025-04-05 07:58] VITALS: BP 128/72; PULSE 74; O2SAT 98; BMI 35.9
--- NOTE | 2025-04-05 07:58 | MHC.OFFVIS ---
Vital Signs 04/05/25 07:58 Height 5 ft 6 in Weight 222 lb 3.615 oz BMI 35.9 BP 128/72 Blood Pressure Location Lt brachial Position Sitting Pulse 74 Pulse Source Pulse Oximeter Pulse Oximetry (%) 98 Oxygen Delivery Method Room Air Intake Visit Reasons: Hyperparathyroidism Intake Note: Patient present today for Hyperparathyroidism office visit. Fighter Pilot Required: No Accompanied by: Self / Same As Patient Allergies latex Allergy (Mild, Verified 04/05/25 08:02) Unknown azithromycin Allergy (Verified 04/05/25 08:02) Unknown Medication List - Last Reconciled 04/05/25 by Renee Adam MD amlodipine 5 mg PO DAILY calzjxmkaq-vicbcptxdvzrp-grbc 50-325-40 mg 2 tabs PO BEDTIME PRN furosemide 20 mg PO DAILY levothyroxine 125 mcg PO DAILY metoprolol tartrate 50 mg PO BID potassium chloride ER 20 mEq PO DAILY 90 days pravastatin 40 mg PO DAILY topiramate 25 mg PO DAILY HPI Comments Details: 69-year-old female coming in today for initial evaluation of elevated PTH levels. Otherwise history significant for hypertension, CKD stage 3, hypothyroidism. Chart review done which shows calcium levels have been anywhere from 9.7 to 10.2 over the past 2-3 years with most recent labs from 01/06/2025 with a calcium of 9.7. Labs from 06/29/2024 showed calcium of 9.7, with PTH of 365. EGFR 41, creatinine 1.28. Phosphorus 3.2. Labs repeated 09/07/2024 showed EGFR of 32, calcium of 10, albumin of 4.2 corrected calcium would be 9.8, vitamin-D elevated at 104.3, TSH of 0.82, PTH repeated October 2024 was again elevated at 276.4. No recent DEXA scan, denies history of osteoporosis. Fracture history: Left foot and right tibia last/fibula in 2017 after fall requiring surgery Metatarsal fracture in 2023, trip from a step Kidney stones: No Hematuria or abdominal flank pain: No HCTZ: No [place]: No Tums or calcium tablets: No No family history of kidney stones or calcium problems vitamin D: taking 72415 units weekly since January plus maybe something daily she isnt sure of dose Yogurt once a week , cheese: 1-2 slice per week , no milk Sestamibi scan 10/09/2023 described equivocal focus of abnormal sestamibi activity along the right inferior thyroid pole, she was evaluated by Endocrine surgery with Dr. Juan J Tee at [facility], who performed an in office neck ultrasound as well where the right thyroid lobe was heterogenous and slightly larger than the left with no distinct nodules, appearance consistent with thyroiditis, she has a history of Robbi's thyroiditis, no distinct parathyroid enlargement noted. The sestamibi scan with more prominent activity in the right side of the thyroid lobe noted is likely due to discrepancy in size size, no obvious parathyroid adenoma. Interval history 04/05/2025 Stopped vitamin-D 01377 units weekly 02/03/2025 Increased nutritional intake of calcium since visit in February 2025 Labs repeated after increase nutritional intake of calcium and stopping vitamin-D, labs from 03/30/2025 showed kidney function is again reduced but stable with a EGFR in the 40s, creatinine of 1.3, calcium 9.6, albumin of 4.2, corrected calcium would be 9.4, ionized calcium normal at 5.3, phosphorus normal at 3.1, magnesium normal at 2.2, vitamin-D 52.3, PTH elevated at 370.9. 24 hour urine calcium normal at 165, 24 hour urine creatinine was slightly low, 24 hour urine calcium would be mildly higher in the setting. But not indicative of hypercalciuria based on the calcium creatinine ratio. Fractional excretion of calcium 0.03 not suggestive of FHH Renal ultrasound did not show any obvious kidney stones, the left side there were some renal cysts noted. On ultrasound from March 2025 Bone density scan done March 2025 showed osteopenia of the spine with T-score of-1.7, osteopenia of the left total hip with T-score of -1.9, osteoporosis of the left femoral neck with T-score of-2.5, osteopenia of the wrist with T-score of-2.3. Physical exam General: sitting comfortably in no acute distress HEENT: normocephalic/atraumatic Cardiac: Normal heart rate Pulm: Normal pulmonary effort Abd: not distended Extremities: Does have right ankle deformity from previous fractures Laboratory Tests 09/24/18 01/20/19 10/14/19 06:18 16:10 10:28 Creatinine 1.22 1.25 Estimated GFR Calcium Phosphorus Albumin 4.3 4.5 4.7 25-OH Vitamin D Total 37.7 35.2 TSH Free T4 PTH Intact 01/13/20 07/11/20 10/04/20 10:46 07:45 08:20 Creatinine Estimated GFR 40 Calcium 10.0 9.7 9.1 D Phosphorus Albumin 4.4 4.2 4.1 25-OH Vitamin D Total 33.9 TSH Free T4 PTH Intact 01/02/21 04/12/21 07/17/21 07:42 07:04 08:11 Creatinine Estimated GFR 43 Calcium 9.3 9.6 9.9 Phosphorus Albumin 4.1 4.1 25-OH Vitamin D Total TSH Free T4 PTH Intact 09/14/21 04/05/22 04/05/22 09:00 08:40 08:40 Creatinine Estimated GFR Calcium 10.1 9.7 9.9 Phosphorus Albumin 4.2 25-OH Vitamin D Total 41.8 42.0 TSH Free T4 PTH Intact 93 H 07/09/22 11/05/22 03/05/23 06:59 10:45 09:36 Creatinine Estimated GFR Calcium 9.8 9.7 10.2 Phosphorus Albumin 4.2 4.3 4.3 25-OH Vitamin D Total TSH Free T4 PTH Intact 06/11/23 09/25/23 03/22/24 10:20 07:28 06:30 Creatinine 1.18 Estimated GFR 45 Calcium 10.1 9.8 9.4 Phosphorus Albumin 4.1 4.0 4.0 25-OH Vitamin D Total TSH Free T4 PTH Intact 06/29/24 09/07/24 10/08/24 07:08 07:51 10:30 Creatinine 1.28 1.61 H Estimated GFR 41 32 Calcium 9.7 10.0 Phosphorus 3.2 Albumin 4.2 25-OH Vitamin D Total 104.3 116.4 TSH 0.82 Free T4 1.50 PTH Intact 365.0 H 276.4 H 01/06/25 11:10 Creatinine 1.18 Estimated GFR 45 Calcium 9.7 Phosphorus Albumin 25-OH Vitamin D Total TSH Free T4 PTH Intact Laboratory Tests 03/30/25 03/30/25 07:00 08:26 Creatinine 1.30 Estimated GFR 40 Calcium 9.6 Ionized Calcium 5.3 Phosphorus 3.1 Magnesium 2.2 Albumin 4.2 25-OH Vitamin D Total 52.3 PTH Intact 370.9 H Ur 24 Hour Volume 1425 Ur Creatinine mg/dL 52.56 Ur Creatinine 24 Hour 0.7 L Ur Calcium 24 Hr 165 Calcium/Creat 24 Hr 204 EXAMINATION: US KIDNEY BILATERAL 03/11/25 HISTORY: E21.0 - Primary hyperparathyroidism TECHNIQUE: Real-time grayscale ultrasound imaging of the kidneys was performed and images were reviewed. COMPARISON: Comparison is made with the prior examination dated 05/17/2010. FINDINGS: Right kidney: The right kidney measures 9.3 x 3.7 x 4.3 cm. Renal parenchymal echotexture and thickness are normal. There are no masses. There is no hydronephrosis or renal calculi. Left Kidney: The left kidney measures 9.5 x 4.5 x 5.4 cm. Renal parenchymal echotexture and thickness are normal. There are multiple parapelvic cysts versus mild to moderate hydronephrosis. No definite calculi are identified. US/US renal BI IMPRESSION: Multiple left renal parapelvic cysts versus mild to moderate hydronephrosis. This could be further imaged with CT urography. Electronically signed by: Gautam Shrestha MD 03/11/2025 01:09 PM EDT RP EXAMINATION: DXA BONE DENSITY EXTREMITY 03/11/25 HISTORY: E21.0 - Primary hyperparathyroidism TECHNIQUE: [employer] Dual energy absorptiometry (DEXA) of the lumbar spine, total left hip, femoral neck, and distal forearm was performed. COMPARISON: There are no prior studies for comparison. FINDINGS: The bone mineral density of the lumbar spine is 0.981, corresponding to a T-score of -1.7, and a Z-score of -1.1. This is indicative of osteopenia. The bone mineral density of the left total hip is 0.772, corresponding to a T-score of -1.9, and a Z-score of -1.1. This is indicative of osteopenia. The bone mineral density of the left femoral neck is 0.695, corresponding to a T-score of -2.5, and a Z-score of -1.4. This is indicative of osteoporosis. The bone mineral density of the left femoral neck is 0.687, corresponding to a T-score of -2.3, and a Z-score of -0.3. This is indicative of osteopenia. FRACTURE RISK: The FRAX index suggests a risk of major osteoporotic fracture of 32.7%, and of hip fracture 9.7%. MM/XR DEXA appendicular skeleton IMPRESSION: Based on bone mineral density, and according to World Health Organization (WHO) criteria, the diagnosis is consistent with osteoporosis. NM PARATHYROID SCAN 08/09/24 CLINICAL INFORMATION: Secondary hyperparathyroidism of renal origin. COMPARISON: No previous radionuclide parathyroid or thyroid imaging studies are available for comparison. The patient continues on levothyroxine which she has taken before 50+ years. TECHNIQUE: A double radionuclide study of the thyroid bed region and upper chest in multiple projections was performed 4 hours after the oral administration of 1.0 mCi I-123 sodium iodide and immediately following the intravenous administration of 23 mCi Tc-99m sestamibi. Repeat imaging was performed 2 hours later. The iodide images were electronically subtracted from the sestamibi images using different weighting factors. FINDINGS: The radioiodine images visualize the thyroid gland, but the intensity of activity is diminished, likely due to significantly decreased radioiodine uptake secondary to the patient's long-term use of exogenous thyroid hormone. The right lobe slightly larger and more intense than the left, but no definite focal abnormalities are present. Technetium 99m sestamibi images also show asymmetrical activity with the right lobe larger and more intense than the left. On the delayed images at 2 hours, there is a subtle focus of more prominently increased sestamibi activity extending inferiorly from the lateral aspect of the lower pole the right lobe, visualized best on the anterior view. Computer-generated digital subtraction images are suboptimal because of the low count statistics on the radioiodine images and do not provide further information. NM/NM parathyroid IMPRESSION: An equivocal focus of abnormal sestamibi activity is suggested extending inferiorly from the lateral aspect of the lower pole of the right thyroid lobe. The finding is considered equivocal. There are no other abnormalities suspicious for a parathyroid adenoma. The activity in the thyroid gland is asymmetrical, with the right lobe larger and more intense on the left, but no additional focal abnormalities are present in the thyroid gland. [facility] Medical History Hypertension Chronic kidney disease, stage 3a Surgical History History of ankle surgery Family History Mother No problems noted. Father No problems noted. Social History Patient Tobacco Use Status: Former Tobacco user Current occupational status: retired Cognitive needs: No Hearing needs: Yes Vision needs: Yes (rx glasses) Physical Exam Vital Signs: Last Vital Signs Pulse 74 04/05/25 07:58 BP 128/72 04/05/25 07:58 Pulse Ox 98 04/05/25 07:58 Oxygen Delivery Method Room Air 04/05/25 07:58 BMI result Body Mass Index 35.9 Assessment & Plan Assessment & Plan (1) Primary hyperparathyroidism: Code(s): E21.0 - Primary hyperparathyroidism Category: Medical Plan: 69-year-old female coming in today for follow up of PTH elevation. Otherwise history significant for hypertension, CKD stage 3 and hypothyroidism. Chart review done which shows calcium levels have been anywhere from 9.7 to 10.2 over the past 2-3 years with labs from 01/06/2025 with a calcium of 9.7. Labs from 06/29/2024 showed calcium of 9.7, with PTH of 365. EGFR 41, creatinine 1.28. Phosphorus 3.2. Labs repeated 09/07/2024 showed EGFR of 32, calcium of 10, albumin of 4.2 corrected calcium would be 9.8, vitamin-D elevated at 104.3, TSH of 0.82, PTH repeated October 2024 was again elevated at 276.4. She does have some history of fracture of the right ankle and tibia fibula in 2017, unclear whether the fall was high impact or not. No other fragility fracture. DEXA scan from March 2025 showed osteopenia of the spine with T-score of-1.7, osteopenia of the left total hip with T-score of -1.9, osteoporosis of the left femoral neck with T-score of-2.5, osteopenia of the wrist with T-score of-2.3. Renal ultrasound from March 2025 did not show any kidney stones. She does have some left renal cysts with possible hydronephrosis. I am going to inform her kidney doctor as well as her PCP of the following findings and I informed the patient that this is not related to her hyperparathyroidism, however if the cysts need further evaluation her PCP or kidney doctor will manage that. Stopped vitamin-D 31768 units weekly 02/03/2025 Increased nutritional intake of calcium since visit in February 2025 Labs repeated after increase nutritional intake of calcium and stopping vitamin-D, labs from 03/30/2025 showed kidney function is again reduced but stable with a EGFR in the 40s, creatinine of 1.3, calcium 9.6, albumin of 4.2, corrected calcium would be 9.4, ionized calcium normal at 5.3, phosphorus normal at 3.1, magnesium normal at 2.2, vitamin-D 52.3, PTH elevated at 370.9. 24 hour urine calcium normal at 165, 24 hour urine creatinine was slightly low, 24 hour urine calcium would be mildly higher in the setting. But not indicative of hypercalciuria based on the calcium creatinine ratio. Fractional excretion of calcium 0.03 not suggestive of FHH. Plus her calcium levels have been normal. Differentials for elevated PTH could be possibly secondary hyperparathyroidism in the setting of kidney disease and her bone disease is likely because of renal osteodystrophy, her calcium levels are in the normal side, usually in secondary hyperparathyroidism PTH is high but calcium is normal. As opposed to primary hyperparathyroidism where we usually see hypercalcemia and hypercalciuria. I am not convinced that she has primary hyperparathyroidism yet . I am leaning more towards secondary hyperparathyroidism in the setting of kidney disease with renal osteodystrophy. Her phosphorus levels are normal, for now she does not need any phosphorus binding agents. These patients usually benefit from calcitriol to help with the bone density. In nondialysis CKD patient calcitriol or synthetic vitamin-D derivatives have been shown to reduce or stabilize PTH and improve bone histology. Calcimimetic are not recommended to suppressed PTH with non dialysis CKD. Usually parathyroidectomy is not preferred either. Unless this patient has developed tertiary hyperparathyroidism in the setting of prolonged CKD. But we would see hypercalcemia in that case. I am going to obtain bone resorption markers to get a better idea of metabolic bone disease right now. We will also repeat her PTH levels at [facility] since there has been some elevated PTH levels at [facility] which comparatively are much lower when done at [facility]. I will also get 125 dihydroxy vitamin-D level. We will see her back in 5 weeks to discuss results. Plan: -for now hold off on vitamin-D supplements -continue with the increased calcium intake to 2-3 servings of calcium rich foods daily -ordered calcium, albumin, ionized calcium, PTH, phosphorus, vitamin-D, 125 dihydroxy vitamin-D, CTX, bone specific alkaline phosphatase level, creatinine to be done at [facility] -follow up in 5 weeks to discuss results (2) Osteoporosis: Code(s): M81.0 - Age-related osteoporosis without current pathological fracture Category: Medical Qualifiers: Osteoporosis type: age-related Presence of current pathological fracture: without current pathological fracture Qualified Code(s): M81.0 - Age-related osteoporosis without current pathological fracture Plan: See above Plan I spent 30 minutes in reviewing the record, seeing the patient and documenting in the medical record. Orders: Orders Collagen Type I C-Telopeptide Today E21.0 - Primary hyperparathyroidism, M81.0 - Age-related osteoporosis without current pathological fracture, N18.31 - Chronic kidney disease, stage 3a, N25.81 - Secondary hyperparathyroidism of renal origin Calcium, Ionized Today E21.0 - Primary hyperparathyroidism, M81.0 - Age-related osteoporosis without current pathological fracture, N18.31 - Chronic kidney disease, stage 3a, N25.81 - Secondary hyperparathyroidism of renal origin Phosphorus Today E21.0 - Primary hyperparathyroidism, M81.0 - Age-related osteoporosis without current pathological fracture, N18.31 - Chronic kidney disease, stage 3a, N25.81 - Secondary hyperparathyroidism of renal origin Parathyroid Hormone Intact Today E21.0 - Primary hyperparathyroidism, M81.0 - Age-related osteoporosis without current pathological fracture, N18.31 - Chronic kidney disease, stage 3a, N25.81 - Secondary hyperparathyroidism of renal origin Protein Electrophoresis, Serum Today E21.0 - Primary hyperparathyroidism, M81.0 - Age-related osteoporosis without current pathological fracture, N18.31 - Chronic kidney disease, stage 3a, N25.81 - Secondary hyperparathyroidism of renal origin Albumin Level Today E21.0 - Primary hyperparathyroidism, M81.0 - Age-related osteoporosis without current pathological fracture, N18.31 - Chronic kidney disease, stage 3a, N25.81 - Secondary hyperparathyroidism of renal origin Alkaline Phosphatase Bone Today E21.0 - Primary hyperparathyroidism, M81.0 - Age-related osteoporosis without current pathological fracture, N18.31 - Chronic kidney disease, stage 3a, N25.81 - Secondary hyperparathyroidism of renal origin Calcium Today E21.0 - Primary hyperparathyroidism, M81.0 - Age-related osteoporosis without current pathological fracture, N18.31 - Chronic kidney disease, stage 3a, N25.81 - Secondary hyperparathyroidism of renal origin Vitamin D 25-OH Total Today E21.0 - Primary hyperparathyroidism, M81.0 - Age-related osteoporosis without current pathological fracture, N18.31 - Chronic kidney disease, stage 3a, N25.81 - Secondary hyperparathyroidism of renal origin Vitamin D 1,25 dihydroxy Today E21.0 - Primary hyperparathyroidism, M81.0 - Age-related osteoporosis without current pathological fracture, N18.31 - Chronic kidney disease, stage 3a, N25.81 - Secondary hyperparathyroidism of renal origin Creatinine Today E21.0 - Primary hyperparathyroidism, M81.0 - Age-related osteoporosis without current pathological fracture, N18.31 - Chronic kidney disease, stage 3a, N25.81 - Secondary hyperparathyroidism of renal origin Patient Instructions: Do fasting 8 AM blood work at [facility] [address] [place] [address] Please make sure they fax over the results to my office Coding Level of Care Code Est Pt Level 4 (77451) Diagnoses Primary hyperparathyroidism E21.0 Age-related osteoporosis without current pathological fracture M81.0 Osteoporosis type: age-related Presence of current pathological fracture: without current pathological fracture Time Spent (min) 30
--- OUTSIDE RECORDS SUMMARY | 2025-04-05 08:01 | XMS_ITS | Patient Health Record ---
Author Organization [facility] Address [address] [place] [address] Care Team Providers Care Duct Cleaner Name Role Phone Dax Villanueva MD Primary Care Provider Unavaila Gautam Denis [phone] Reason For Referral No Information Encounters Encounter Location Date Provider Diagnosis [facility] [address] [place] [id number] 09/24/2024 Gautam Damon [facility] [address] [place] [phone] 11/02/2024 Gautam Damon Plan Of Treatment No Information Insurance Providers Payer Name Payer Address Payer Phone Subscriber Number Group Number Insured Name Patient Relationship to Insured Coverage Start Date Coverage End Date MEDICARE OF [place] [address] [place] [address] [id number] JENNY RAO Self - patient is the insured [facility] [address] [place] [phone] [id number] JENNY RAO Self - patient is the insured
== END 2025-04-05 08:33 | disposition home or self-care (01) ==
LOC: HO.ENCR 07:57
PROVIDERS: PCP Internal Medicine; Visit Provider Student in an Organized Health Care Education/Training Program
DX: E21.0 Primary hyperparathyroidism (principal); M81.0 Age-related osteoporosis without current pathological fracture
CPT/HCPCS: 99214

== ENCOUNTER → 2025-04-05 07:57 | Outpatient (BNVA) | payer MEDICARE, OTHER, SELFPAY | PROVIDERS: PCP Internal Medicine; Visit Provider Student in an Organized Health Care Education/Training Program | DX: E21.0 Primary hyperparathyroidism (principal); M81.0 Age-related osteoporosis without current pathological fracture; I12.9 Hypertensive chronic kidney disease with stage 1 through stage 4 chronic kidney disease, or unspecified chronic kidney disease; N18.31 Chronic kidney disease, stage 3a; E03.9 Hypothyroidism, unspecified; Z79.890 Hormone replacement therapy | CPT/HCPCS: 99212 ==

== ENCOUNTER 2025-05-17 08:17 | Outpatient (AMB) | payer MEDICARE, OTHER, SELFPAY ==
[2025-05-17 08:19] VITALS: BP 110/82; PULSE 70; O2SAT 96; BMI 35.7
--- NOTE | 2025-05-17 08:19 | A.OFFVIS_ITS ---
Vital Signs 3 05/17/25 08:19 Height 5 ft 6 in Weight 221 lb 5.506 oz BMI 35.7 BP 110/82 Blood Pressure Location Lt brachial Position Sitting Pulse 70 Pulse Source Pulse Oximeter Pulse Oximetry (%) 96 Oxygen Delivery Method Room Air Intake Visit Reasons: Hyperparathyroidism Intake Note: Patient present today for Hyperparathyroidism office visit. Filler Shaker Required: No Accompanied by: Self / Same As Patient Allergies latex Allergy (Mild, Verified 05/17/25 08:23) Unknown azithromycin Allergy (Verified 05/17/25 08:23) Unknown HPI Comments Details: 69-year-old female coming in today for initial evaluation of elevated PTH levels. Otherwise history significant for hypertension, CKD stage 3, hypothyroidism. Chart review done which shows calcium levels have been anywhere from 9.7 to 10.2 over the past 2-3 years with most recent labs from 01/06/2025 with a calcium of 9.7. Labs from 06/29/2024 showed calcium of 9.7, with PTH of 365. EGFR 41, creatinine 1.28. Phosphorus 3.2. Labs repeated 09/07/2024 showed EGFR of 32, calcium of 10, albumin of 4.2 corrected calcium would be 9.8, vitamin-D elevated at 104.3, TSH of 0.82, PTH repeated October 2024 was again elevated at 276.4. No recent DEXA scan, denies history of osteoporosis. Fracture history: Left foot and right tibia last/fibula in 2016 after fall requiring surgery Metatarsal fracture in 2023, trip from a step Kidney stones: No Hematuria or abdominal flank pain: No HCTZ: No [place]: No Tums or calcium tablets: No No family history of kidney stones or calcium problems vitamin D: taking 63966 units weekly since January plus maybe something daily she isnt sure of dose Yogurt once a week , cheese: 1-2 slice per week , no milk Sestamibi scan 10/09/2023 described equivocal focus of abnormal sestamibi activity along the right inferior thyroid pole, she was evaluated by Endocrine surgery with Dr. Juan J Tee at [facility], who performed an in office neck ultrasound as well where the right thyroid lobe was heterogenous and slightly larger than the left with no distinct nodules, appearance consistent with thyroiditis, she has a history of Robbi's thyroiditis, no distinct parathyroid enlargement noted. The sestamibi scan with more prominent activity in the right side of the thyroid lobe noted is likely due to discrepancy in size size, no obvious parathyroid adenoma. Interval history 04/05/2025 Stopped vitamin-D 19910 units weekly 02/03/2025 Increased nutritional intake of calcium since visit in February 2025 Labs repeated after increase nutritional intake of calcium and stopping vitamin- D, labs from 03/30/2025 showed kidney function is again reduced but stable with a EGFR in the 40s, creatinine of 1.3, calcium 9.6, albumin of 4.2, corrected calcium would be 9.4, ionized calcium normal at 5.3, phosphorus normal at 3.1, magnesium normal at 2.2, vitamin-D 52.3, PTH elevated at 370.9. 24 hour urine calcium normal at 165, 24 hour urine creatinine was slightly low, 24 hour urine calcium would be mildly higher in the setting. But not indicative of hypercalciuria based on the calcium creatinine ratio. Fractional excretion of calcium 0.03 not suggestive of FHH Renal ultrasound did not show any obvious kidney stones, the left side there were some renal cysts noted. On ultrasound from March 2025 Bone density scan done March 2025 showed osteopenia of the spine with T-score of- 1.7, osteopenia of the left total hip with T-score of -1.9, osteoporosis of the left femoral neck with T-score of-2.5, osteopenia of the wrist with T-score of- 2.3. Interval history 05/17/2025 Labs from 04/06/2025: Done at [facility] Creatinine 1.47 EGFR 38 Ionized calcium 5.4 PTH 139 Calcium 10.1 Phosphorus 4 Albumin 4.1 Normal serum electrophoresis CTX 728 Vitamin-D 105 One twenty-five dihydroxy vitamin-D 30 Physical exam General: sitting comfortably in no acute distress HEENT: normocephalic/atraumatic Cardiac: Normal heart rate Pulm: Normal pulmonary effort Abd: not distended Extremities: Does have right ankle deformity from previous fractures Laboratory Tests 09/24/18 01/20/19 10/14/19 06:18 16:10 10:28 Creatinine 1.22 1.25 Estimated GFR Calcium Phosphorus Albumin 4.3 4.5 4.7 25-OH Vitamin D Total 37.7 35.2 TSH Free T4 PTH Intact 01/13/20 07/11/20 10/04/20 10:46 07:45 08:20 Creatinine Estimated GFR 40 Calcium 10.0 9.7 9.1 D Phosphorus Albumin 4.4 4.2 4.1 25-OH Vitamin D Total 33.9 TSH Free T4 PTH Intact 01/02/21 04/12/21 07/17/21 07:42 07:04 08:11 Creatinine Estimated GFR 43 Calcium 9.3 9.6 9.9 Phosphorus Albumin 4.1 4.1 25-OH Vitamin D Total TSH Free T4 PTH Intact 09/14/21 04/05/22 04/05/22 09:00 08:40 08:40 Creatinine Estimated GFR Calcium 10.1 9.7 9.9 Phosphorus Albumin 4.2 25-OH Vitamin D Total 41.8 42.0 TSH Free T4 PTH Intact 93 H 07/09/22 11/05/22 03/05/23 06:59 10:45 09:36 Creatinine Estimated GFR Calcium 9.8 9.7 10.2 Phosphorus Albumin 4.2 4.3 4.3 25-OH Vitamin D Total TSH Free T4 PTH Intact 06/11/23 09/25/23 03/22/24 10:20 07:28 06:30 Creatinine 1.18 Estimated GFR 45 Calcium 10.1 9.8 9.4 Phosphorus Albumin 4.1 4.0 4.0 25-OH Vitamin D Total TSH Free T4 PTH Intact 06/29/24 09/07/24 10/08/24 07:08 07:51 10:30 Creatinine 1.28 1.61 H Estimated GFR 41 32 Calcium 9.7 10.0 Phosphorus 3.2 Albumin 4.2 25-OH Vitamin D Total 104.3 116.4 TSH 0.82 Free T4 1.50 PTH Intact 365.0 H 276.4 H 01/06/25 11:10 Creatinine 1.18 Estimated GFR 45 Calcium 9.7 Phosphorus Albumin 25-OH Vitamin D Total TSH Free T4 PTH Intact Laboratory Tests 03/30/25 03/30/25 07:00 08:26 Creatinine 1.30 Estimated GFR 40 Calcium 9.6 Ionized Calcium 5.3 Phosphorus 3.1 Magnesium 2.2 Albumin 4.2 25-OH Vitamin D Total 52.3 PTH Intact 370.9 H Ur 24 Hour Volume 1425 Ur Creatinine mg/dL 52.56 Ur Creatinine 24 Hour 0.7 L Ur Calcium 24 Hr 165 Calcium/Creat 24 Hr 204 EXAMINATION: US KIDNEY BILATERAL 03/11/25 HISTORY: E21.0 - Primary hyperparathyroidism TECHNIQUE: Real-time grayscale ultrasound imaging of the kidneys was performed and images were reviewed. COMPARISON: Comparison is made with the prior examination dated 05/17/2010. FINDINGS: Right kidney: The right kidney measures 9.3 x 3.7 x 4.3 cm. Renal parenchymal echotexture and thickness are normal. There are no masses. There is no hydronephrosis or renal calculi. Left Kidney: The left kidney measures 9.5 x 4.5 x 5.4 cm. Renal parenchymal echotexture and thickness are normal. There are multiple parapelvic cysts versus mild to moderate hydronephrosis. No definite calculi are identified. US/US renal BI IMPRESSION: Multiple left renal parapelvic cysts versus mild to moderate hydronephrosis. This could be further imaged with CT urography. Electronically signed by: Gautam Shrestha MD 03/11/2025 01:09 PM EDT RP EXAMINATION: DXA BONE DENSITY EXTREMITY 03/11/25 HISTORY: E21.0 - Primary hyperparathyroidism TECHNIQUE: JumpLinc Dual energy absorptiometry (DEXA) of the lumbar spine, total left hip, femoral neck, and distal forearm was performed. COMPARISON: There are no prior studies for comparison. FINDINGS: The bone mineral density of the lumbar spine is 0.981, corresponding to a T-score of -1.7, and a Z-score of -1.1. This is indicative of osteopenia. The bone mineral density of the left total hip is 0.772, corresponding to a T-score of -1.9, and a Z-score of -1.1. This is indicative of osteopenia. The bone mineral density of the left femoral neck is 0.695, corresponding to a T-score of -2.5, and a Z-score of -1.4. This is indicative of osteoporosis. The bone mineral density of the left femoral neck is 0.687, corresponding to a T-score of -2.3, and a Z-score of -0.3. This is indicative of osteopenia. FRACTURE RISK: The FRAX index suggests a risk of major osteoporotic fracture of 32.7%, and of hip fracture 9.7%. MM/XR DEXA appendicular skeleton IMPRESSION: Based on bone mineral density, and according to World Health Organization (WHO) criteria, the diagnosis is consistent with osteoporosis. NM PARATHYROID SCAN 08/09/24 CLINICAL INFORMATION: Secondary hyperparathyroidism of renal origin. COMPARISON: No previous radionuclide parathyroid or thyroid imaging studies are available for comparison. The patient continues on levothyroxine which she has taken before 50+ years. TECHNIQUE: A double radionuclide study of the thyroid bed region and upper chest in multiple projections was performed 4 hours after the oral administration of 1.0 mCi I-123 sodium iodide and immediately following the intravenous administration of 23 mCi Tc-99m sestamibi. Repeat imaging was performed 2 hours later. The iodide images were electronically subtracted from the sestamibi images using different weighting factors. FINDINGS: The radioiodine images visualize the thyroid gland, but the intensity of activity is diminished, likely due to significantly decreased radioiodine uptake secondary to the patient's long-term use of exogenous thyroid hormone. The right lobe slightly larger and more intense than the left, but no definite focal abnormalities are present. Technetium 99m sestamibi images also show asymmetrical activity with the right lobe larger and more intense than the left. On the delayed images at 2 hours, there is a subtle focus of more prominently increased sestamibi activity extending inferiorly from the lateral aspect of the lower pole the right lobe, visualized best on the anterior view. Computer-generated digital subtraction images are suboptimal because of the low count statistics on the radioiodine images and do not provide further information. NM/NM parathyroid IMPRESSION: An equivocal focus of abnormal sestamibi activity is suggested extending inferiorly from the lateral aspect of the lower pole of the right thyroid lobe. The finding is considered equivocal. There are no other abnormalities suspicious for a parathyroid adenoma. The activity in the thyroid gland is asymmetrical, with the right lobe larger and more intense on the left, but no additional focal abnormalities are present in the thyroid gland. [facility] Medical History (Updated 04/05/25 @ 08:44 by Renee Adam MD) Osteoporosis Hypertension Chronic kidney disease, stage 3a Surgical History History of ankle surgery Family History Mother No problems noted. Father No problems noted. Social History Patient Tobacco Use Status: Former Tobacco user Current occupational status: retired Cognitive needs: No Hearing needs: Yes Vision needs: Yes (rx glasses) Physical Exam Vital Signs: Last Vital Signs Pulse 70 05/17/25 08:19 BP 110/82 05/17/25 08:19 Pulse Ox 96 05/17/25 08:19 Oxygen Delivery Method Room Air 05/17/25 08:19 BMI result Body Mass Index 35.7 Assessment & Plan Assessment & Plan (1) Primary hyperparathyroidism: Code(s): E21.0 - Primary hyperparathyroidism Category: Medical Plan: 69-year-old female coming in today for follow up of PTH elevation. Otherwise history significant for hypertension, CKD stage 3 and hypothyroidism. Chart review done which shows calcium levels have been anywhere from 9.7 to 10.2 over the past 2-3 years with labs from 01/06/2025 with a calcium of 9.7. Labs from 06/29/2024 showed calcium of 9.7, with PTH of 365. EGFR 41, creatinine 1.28. Phosphorus 3.2. Labs repeated 09/07/2024 showed EGFR of 32, calcium of 10, albumin of 4.2 corrected calcium would be 9.8, vitamin-D elevated at 104.3, TSH of 0.82, PTH repeated October 2024 was again elevated at 276.4. She does have some history of fracture of the right ankle and tibia fibula in 2017, unclear whether the fall was high impact or not. No other fragility fracture. DEXA scan from March 2025 showed osteopenia of the spine with T-score of-1.7, osteopenia of the left total hip with T-score of -1.9, osteoporosis of the left femoral neck with T-score of-2.5, osteopenia of the wrist with T-score of-2.3. Renal ultrasound from March 2025 did not show any kidney stones. She does have some left renal cysts with possible hydronephrosis. I am going to inform her kidney doctor as well as her PCP of the following findings and I informed the patient that this is not related to her hyperparathyroidism, however if the cysts need further evaluation her PCP or kidney doctor will manage that. Stopped vitamin-D 82558 units weekly 02/03/2025 Increased nutritional intake of calcium since visit in February 2025 Labs repeated after increase nutritional intake of calcium and stopping vitamin- D, labs from 03/30/2025 showed kidney function is again reduced but stable with a EGFR in the 40s, creatinine of 1.3, calcium 9.6, albumin of 4.2, corrected calcium would be 9.4, ionized calcium normal at 5.3, phosphorus normal at 3.1, magnesium normal at 2.2, vitamin-D 52.3, PTH elevated at 370.9. 24 hour urine calcium normal at 165, 24 hour urine creatinine was slightly low, 24 hour urine calcium would be mildly higher in the setting. But not indicative of hypercalciuria based on the calcium creatinine ratio. Fractional excretion of calcium 0.03 not suggestive of FHH. Plus her calcium levels have been normal. Labs from 04/06/2025: Done at [facility] Creatinine 1.47 EGFR 38 Ionized calcium 5.4 PTH 139 Calcium 10.1 Phosphorus 4 Albumin 4.1 Normal serum electrophoresis CTX 728 Vitamin-D 105 One twenty-five dihydroxy vitamin-D 30 Differentials for elevated PTH could be possibly secondary hyperparathyroidism in the setting of kidney disease and her bone disease is likely because of renal osteodystrophy, her calcium levels are in the normal side, usually in secondary hyperparathyroidism PTH is high but calcium is normal. As opposed to primary hyperparathyroidism where we usually see hypercalcemia and hypercalciuria. I am not convinced that she has primary hyperparathyroidism yet . I am leaning more towards secondary hyperparathyroidism in the setting of kidney disease with renal osteodystrophy. Her phosphorus levels are normal, for now she does not need any phosphorus binding agents. These patients usually benefit from calcitriol to help with the bone density. In nondialysis CKD patient calcitriol or synthetic vitamin-D derivatives have been shown to reduce or stabilize PTH and improve bone histology. Calcimimetic are not recommended to suppressed PTH with non dialysis CKD. Usually parathyroidectomy is not preferred either. Unless this patient has developed tertiary hyperparathyroidism in the setting of prolonged CKD. But we would see hypercalcemia in that case. Her bone resorption markers CTX is elevated and indicative of increased resorption. Again possibly in the setting of renal osteodystrophy, increased resorption in the setting of elevated PTH levels from kidney disease. At this time I would like to start her on calcitriol and see how it helps. Her vitamin- D levels are high so I would not put her on any vitamin-D supplements. We will see how her PTH levels respond to the calcitriol and low phosphorus intake. Plan: - hold off on vitamin-D supplements -continue with the increased calcium intake to 2-3 servings of calcium rich foods daily -advised low phosphorus intake -start calcitriol 0.25 mcg 3 times a week -repeat blood work mid July at [facility],, we will reach out with the results -repeat another set of blood work 2 weeks prior to follow up in December 2025 to be done at [facility] -follow up in December 2025 -next bone density would be due October 2026 (2) Osteoporosis: Code(s): M81.0 - Age-related osteoporosis without current pathological fracture Category: Medical Qualifiers: Osteoporosis type: age-related Presence of current pathological fracture: without current pathological fracture Qualified Code(s): M81.0 - Age- related osteoporosis without current pathological fracture Plan: See above (3) CKD (chronic kidney disease) stage 3, GFR 30-59 ml/min: Code(s): N18.30 - Chronic kidney disease, stage 3 unspecified Category: Medical Qualifiers: Chronic kidney disease stage 3 subtype: stage 3a (GFR 45-59) Qualified Code(s): N18.31 - Chronic kidney disease, stage 3a Plan: See above (4) Secondary hyperparathyroidism (of renal origin): Code(s): N25.81 - Secondary hyperparathyroidism of renal origin Category: Medical Plan: See above Plan I spent 30 minutes in reviewing the record, seeing the patient and documenting in the medical record. Orders: Orders 2 Phosphorus 07/18/25 M81.0 - Age-related osteoporosis without current pathological fracture, N18.31 - Chronic kidney disease, stage 3a, N25.81 - Secondary hyperparathyroidism of renal origin Collagen Type I C-Telopeptide 07/18/25 M81.0 - Age-related osteoporosis without current pathological fracture, N18.31 - Chronic kidney disease, stage 3a, N25.81 - Secondary hyperparathyroidism of renal origin Albumin Level 07/18/25 M81.0 - Age-related osteoporosis without current pathological fracture, N18.31 - Chronic kidney disease, stage 3a, N25.81 - Secondary hyperparathyroidism of renal origin Calcium 07/18/25 M81.0 - Age-related osteoporosis without current pathological fracture, N18.31 - Chronic kidney disease, stage 3a, N25.81 - Secondary hyperparathyroidism of renal origin Calcium, Ionized 07/18/25 M81.0 - Age-related osteoporosis without current pathological fracture, N18.31 - Chronic kidney disease, stage 3a, N25.81 - Secondary hyperparathyroidism of renal origin Parathyroid Hormone Intact 07/18/25 M81.0 - Age-related osteoporosis without current pathological fracture, N18.31 - Chronic kidney disease, stage 3a, N25.81 - Secondary hyperparathyroidism of renal origin Vitamin D 25-OH Total 07/18/25 M81.0 - Age-related osteoporosis without current pathological fracture, N18.31 - Chronic kidney disease, stage 3a, N25.81 - Secondary hyperparathyroidism of renal origin Creatinine 07/18/25 M81.0 - Age-related osteoporosis without current pathological fracture, N18.31 - Chronic kidney disease, stage 3a, N25.81 - Secondary hyperparathyroidism of renal origin Albumin Level 12/05/25 M81.0 - Age-related osteoporosis without current pathological fracture, N18.31 - Chronic kidney disease, stage 3a, N25.81 - Secondary hyperparathyroidism of renal origin Calcium 12/05/25 M81.0 - Age-related osteoporosis without current pathological fracture, N18.31 - Chronic kidney disease, stage 3a, N25.81 - Secondary hyperparathyroidism of renal origin Calcium, Ionized 12/05/25 M81.0 - Age-related osteoporosis without current pathological fracture, N18.31 - Chronic kidney disease, stage 3a, N25.81 - Secondary hyperparathyroidism of renal origin Phosphorus 12/05/25 M81.0 - Age-related osteoporosis without current pathological fracture, N18.31 - Chronic kidney disease, stage 3a, N25.81 - Secondary hyperparathyroidism of renal origin Parathyroid Hormone Intact 12/05/25 M81.0 - Age-related osteoporosis without current pathological fracture, N18.31 - Chronic kidney disease, stage 3a, N25.81 - Secondary hyperparathyroidism of renal origin Collagen Type I C-Telopeptide 12/05/25 M81.0 - Age-related osteoporosis without current pathological fracture, N18.31 - Chronic kidney disease, stage 3a, N25.81 - Secondary hyperparathyroidism of renal origin Vitamin D 25-OH Total 12/05/25 M81.0 - Age-related osteoporosis without current pathological fracture, N18.31 - Chronic kidney disease, stage 3a, N25.81 - Secondary hyperparathyroidism of renal origin Alkaline Phosphatase Bone 12/05/25 M81.0 - Age-related osteoporosis without current pathological fracture, N18.31 - Chronic kidney disease, stage 3a, N25.81 - Secondary hyperparathyroidism of renal origin Creatinine 12/05/25 M81.0 - Age-related osteoporosis without current pathological fracture, N18.31 - Chronic kidney disease, stage 3a, N25.81 - Secondary hyperparathyroidism of renal origin Medications: New 2 calcitriol Take one capsule three times weekly , Friday , Friday and Friday 0.25 mcg PO 3XW 14 caps 4RF Patient Instructions: Continue increases nutritional intake of calcium Low nutritional intake of phosphorus No vitamin D supplements Start calcitriol 0.25 mcg capsule three times a week , Fri, Fri, Fri Do fasting 8 AM blood work at [facility] mid July, we will reach out with results Do another fasting 8 AM blood work at [facility] 2 weeks prior to your December appointment Follow up end of December 2025 Coding Level of Care Code Est Pt Level 4 (04078) Complex EM visit Add On G2211 Diagnoses Primary hyperparathyroidism E21.0 Age-related osteoporosis without current pathological fracture M81.0 Osteoporosis type: age-related Presence of current pathological fracture: without current pathological fracture Stage 3a chronic kidney disease N18.31 Chronic kidney disease stage 3 subtype: stage 3a (GFR 45-59) Secondary hyperparathyroidism (of renal origin) N25.81 Time Spent (min) 30
--- OUTSIDE RECORDS SUMMARY | 2025-05-17 08:27 | XMS_ITS | Patient Health Record ---
Author Organization [facility] Address [address] [place] [id number] Care Team Providers Care Glazier Apprentice Name Role Phone Rich (RETIRED) Dax BRAY Primary Care Provide r Gautam Ochoa [phone] Reason For Referral No Information Encounters Encounter Location Date Provider Diagnosis [facility] [address] [place] [id number] 09/24/2024 Gautam Damon [facility] [address] [place] [id number] 11/02/2024 Gautam Damon Plan Of Treatment No Information Insurance Providers Payer Name Payer Address Payer Phone Subscriber Number Group Number Insured Name Patient Relationship to Insured Coverage Start Date Coverage End Date MEDICARE OF [facility] [address] [place] [address] [id number] JENNY RAO Self - patient is the insured [facility] [address] [place] [phone] [id number] JENNY RAO Self - patient is the insured
== END 2025-05-17 08:48 | disposition home or self-care (01) ==
LOC: HO.ENCR 08:18
PROVIDERS: PCP Internal Medicine; Visit Provider Student in an Organized Health Care Education/Training Program
DX: E21.0 Primary hyperparathyroidism (principal); M81.0 Age-related osteoporosis without current pathological fracture; N18.31 Chronic kidney disease, stage 3a; N25.81 Secondary hyperparathyroidism of renal origin
CPT/HCPCS: 99214; G2211

== ENCOUNTER → 2025-05-17 08:17 | Outpatient (BNVA) | payer MEDICARE, OTHER, SELFPAY | PROVIDERS: PCP Internal Medicine; Visit Provider Student in an Organized Health Care Education/Training Program | DX: E21.0 Primary hyperparathyroidism (principal); M81.0 Age-related osteoporosis without current pathological fracture; I12.9 Hypertensive chronic kidney disease with stage 1 through stage 4 chronic kidney disease, or unspecified chronic kidney disease; N18.31 Chronic kidney disease, stage 3a; N25.81 Secondary hyperparathyroidism of renal origin; Z79.899 Other long term (current) drug therapy | CPT/HCPCS: 99212 ==

== ENCOUNTER 2025-06-30 08:46 | Outpatient (AMB) | payer MEDICARE, OTHER, SELFPAY ==
--- OUTSIDE RECORDS SUMMARY | 2024-11-02 10:40 | XMS_ITS ---
Author Organization [facility] Address [address] [place] [phone] Care Team Providers Care Delivery Supervisor Name Role Phone Rich (RETIRED) Dax BRAY Primary Care Provide Gautam Quick [phone] REASON FOR VISIT Patient presents today for a positive cologuard Encounters Encounter Location Date Provider Diagnosis [facility] [address] [place] [phone] 11/02/2024 Gautam Damon Plan Of Treatment No Information Progress Notes * ANU RAOOB:1955 (70 yo F)Acc No.[id number]:11/02/2024 Progress Notes Patient: JENNY BANKS Provider: Arun Damon MD :1955 A ge:69 Y S ex:Female Date:11/02/2024 Address:[address] [place], [place] [id number] Pcp:Dax Villanueva (RETIRED )MD Subjective: * Chief [...] MD Date: 0 11/02/2024 Generated for Simran beckman/Margie/eTransmitting on: 06/30/2025 09:22 AM EDT
--- NOTE | 2025-06-30 08:48 | A.OFFVIS_ITS ---
Intake Visit Reasons: 6M Allergies latex Allergy (Mild, Verified 06/30/25 09:02) Unknown azithromycin Allergy (Verified 06/30/25 09:02) Unknown Medication List - Last Reconciled 06/30/25 by Isa Carrillo CNP amlodipine 5 mg PO DAILY sjktkwznmm-uifptfwqukphg-lttg 50-325-40 mg 1 - 2 tabs PO DAILY PRN calcitriol 0.25 mcg PO 3XW furosemide 20 mg PO DAILY levothyroxine 125 mcg PO DAILY metoprolol tartrate 50 mg PO BID potassium chloride ER 20 mEq PO DAILY 90 days pravastatin 40 mg PO DAILY sertraline 25 mg PO DAILY 30 days topiramate 25 mg PO BEDTIME 90 days HPI Comments Details: 70 year-old woman with glaucoma, HTN, and migraine. She was having few more migraines lately which she thought may be triggered by stress. Butalbital as needed helped. Mood was not so good, due to stress related to family issues. Sleep was up and down. [facility] Medical History (Updated 06/30/25 @ 09:13 by Isa Carrillo CNP) Osteoporosis Hypertension Chronic kidney disease, stage 3a Surgical History History of ankle surgery Family History Mother No problems noted. Father No problems noted. Social History Patient Tobacco Use Status: Former Tobacco user Current occupational status: retired Cognitive needs: No Hearing needs: Yes Vision needs: Yes (rx glasses) Review of Systems Const Denies chills, Denies daytime sleepiness, Denies difficulty sleeping, Denies fatigue, Denies fever(s), Denies frequent falls, Reports headache(s), Denies increased appetite, Denies poor appetite, Denies snoring, Denies weakness, Denies weight gain and Denies weight loss Eyes Denies loss of vision ENT Denies vertigo, Denies dizziness and Reports headache(s) Card Denies chest pain at rest, Denies chest pain with activity, Denies syncope, Denies leg edema and Denies palpitations Resp Denies snoring GI Denies constipation, Denies heartburn, Denies diarrhea and Denies nausea Denies urinary frequency, Denies urinary incontinence and Denies urinary urgency Musc Denies abnormal gait, Denies numbness and Denies tingling Skin/Breast Denies dry skin and Denies rash Neuro Denies abnormal gait, Denies vertigo, Denies dizziness, Denies syncope, Denies frequent falls, Reports headache(s), Denies lack of coordination, Denies loss of vision, Denies memory loss, Denies numbness, Denies restless legs, Denies sei zure-like activity, Denies tingling, Denies paresthesias, Denies tremor(s) and Denies weakness Psych Reports anxiety, Denies depression, Denies auditory hallucinations, Denies memory loss, Denies visual hallucinations and Denies suicidal ideation Endo Denies fatigue and Denies palpitations Physical Exam Const Other: General Appearance:? normal, in no acute distress. Skin:? no rashes, no significant birthmarks. Heart:? S1, S2 normal, no murmurs. Lungs:? clear anteriorly and posteriorly. Extremities:? no edema. Psych:? alert, oriented, cognitive function intact, cooperative with exam. Neuro Other: Mental Status:?Normal attention, orientation, memory and affect.? Cranial Nerves:?Pupils are equal, round and reactive to light. External occular muscles are intact. Visual la are full. Face is symmetrical. Facial sensations are normal. Tongue is midline. Palate elevates symmetrically. Shoulder shrugging is normal. Hearing to bedside conversation is decreased. Coordination:?No ataxia,?no titubation.? Gait Exam: With cane. Extrapyramidal System:?No tremor, rigidity with normal facial expressions.? Pronator Drift:?Not present.? Involuntary Movements:?No tremors seen.? Speech:?Normal.? Results Reviewed Results Reviewed: MRI brain w/o cont [place] [facility] [place]: White matter non spcific changes (reported) Assessment & Plan Assessment & Plan (1) Migraine: Code(s): G43.909 - Migraine, unspecified, not intractable, without status migrainosus Category: Medical Qualifiers: Migraine type: migraine (< 15 days per month) without aura Status migrainosus presence: without status migrainosus Intractability: not intractable Qualified Code(s): G43.009 - Migraine without aura, not intractable, without status migrainosus Plan: Continue topiramate 25mg 1 tablet at bedtime. Continue mjelplolxc-AHQR-odwz 50-325-40mg 1-2 tablets as needed for migraine #10 for 30 days. (2) Anxiety: Code(s): F41.9 - Anxiety disorder, unspecified Category: Medical Plan: Start sertraline 25mg 1 tablet daily, use/side effects reviewed. Medications: New sertraline 25 mg PO DAILY 30 tabs 2RF 30 days Changed From topiramate 25 mg PO DAILY To topiramate 25 mg PO BEDTIME 90 tabs 1RF 90 days Coding Level of Care Code Est Pt Level 4 (34737) Diagnoses Migraine without aura and without status migrainosus, not intractable G43.009 Migraine type: migraine (< 15 days per month) without aura Status migrainosus presence: without status migrainosus Intractability: not intractable Anxiety F41.9
--- OUTSIDE RECORDS SUMMARY | 2025-06-30 09:23 | XMS_ITS | Patient Health Record ---
Author Organization [facility] Address [address] [place] [id number] Care Team Providers Care Mercantile Reporter Name Role Phone Rich (RETIRED) Dax BRAY Primary Care Provide r Gautam Ochoa [phone] Reason For Referral No Information Encounters Encounter Location Date Provider Diagnosis [facility] [address] [place] [phone] 09/24/2024 Gautam Damon [facility] [address] [place] [phone] 11/02/2024 Gautam Damon Plan Of Treatment No Information Insurance Providers Payer Name Payer Address Payer Phone Subscriber Number Group Number Insured Name Patient Relationship to Insured Coverage Start Date Coverage End Date MEDICARE OF [facility] [address] [place] [address] [id number] JENNY RAO Self - patient is the insured [facility] [address] [place] [phone] [id number] JENNY ROA Self - patient is the insured
== END 2025-06-30 09:19 | disposition home or self-care (01) ==
LOC: HO.HSM 08:47
PROVIDERS: PCP Internal Medicine; Visit Provider Registered Nurse
DX: G43.009 Migraine without aura, not intractable, without status migrainosus (principal); F41.9 Anxiety disorder, unspecified
CPT/HCPCS: 99214

== ENCOUNTER → 2025-06-30 08:46 | Outpatient (BNVA) | payer MEDICARE, OTHER, SELFPAY | PROVIDERS: PCP Internal Medicine; Visit Provider Registered Nurse | DX: G43.009 Migraine without aura, not intractable, without status migrainosus (principal); F41.9 Anxiety disorder, unspecified; I10 Essential (primary) hypertension; Z87.891 Personal history of nicotine dependence | CPT/HCPCS: 99212 ==

== ENCOUNTER 2025-08-08 12:41 | Outpatient (AMB) | payer MEDICARE, SELFPAY ==
--- OUTSIDE RECORDS SUMMARY | 2024-11-02 09:40 | XMS_ITS ---
Author Organization [facility] Address [address] [place] [phone] Care Team Providers Care Weight Caller Name Role Phone Rich (RETIRED) Dax BRAY Primary Care Provide Gautam Quick [phone] REASON FOR VISIT Patient presents today for a positive cologuard Encounters Encounter Location Date Provider Diagnosis [facility] [address] [place] [phone] 11/02/2024 Gautam Damon Plan Of Treatment No Information Progress Notes * ANU RAOOB:1955 (70 yo F)Acc No.[id number]:11/02/2024 Progress Notes Patient: JENNY BANKS Provider: Arun Damon MD :1955 A ge:69 Y S ex:Female Date:11/02/2024 Address:[address] [place], [place] [id number] Pcp:Dax Villanueva (RETIRED )MD Subjective: * Chief Complaints: * 1 . Patient presents today for a positive cologuard. * Medical History: Objective: * Vitals: Assessment: Plan: * Treatment: * * The named appointment provid er may or may not be the originator of this progress note, and it is not deemed complete until electronically signed by the appointment provider. Sign off status: Pending * Provider: Arun Damon MD Date: 11/02/2024 Generated for Simran beckman/Margie/eTanthonysmitting on: 10/08/2024 04:02 PM EST
[2025-08-08 07:59] VITALS: BP 130/82; PULSE 81; TEMP 36.4; O2SAT 98; BMI 35.2
--- NOTE | 2025-08-08 07:59 | MHC.PC.OV ---
Vital Signs 08/08/25 07:59 Height 5 ft 6 in Weight 218 lb BMI 35.2 BP 130/82 Blood Pressure Location Lt brachial Position Sitting Pulse 81 Pulse Source Pulse Oximeter Temp 97.5 F Temp Source Temporal Artery Scan Pulse Oximetry (%) 98 Oxygen Delivery Method Room Air Intake Visit Reasons: ELOINA- Dr. Oleary - see comments Padded Box Sewer Required: No Accompanied by: Self / Same As Patient Allergies latex Allergy (Mild, Verified 08/08/25 07:59) Unknown azithromycin Allergy (Verified 08/08/25 07:59) Unknown Medication List - Last Reconciled 08/08/25 by FELIBERTO Kim amlodipine 5 mg PO DAILY utuvudehle-ffhfzxyfihiqp-ljaj 50-325-40 mg 1 - 2 tabs PO DAILY PRN calcitriol 0.25 mcg PO 3XW furosemide 20 mg PO DAILY levothyroxine 125 mcg PO DAILY metoprolol tartrate 50 mg PO BID potassium chloride ER 20 mEq PO DAILY 90 days pravastatin 40 mg PO DAILY sertraline 25 mg PO DAILY 90 days topiramate 25 mg PO BEDTIME 90 days Tobacco use date assessed: 08/08/25 Fall risk assessment: No Falls in past year Last assessed Fall Risk: 08/08/25 Dental Screening Dental Screen Date: 08/08/25 Did you have a dental visit in the last 12 months?: Yes Did you have a dental problem in the last 6 months where you did not have access to dental care?: No HPI HPI Comments History of Present Illness Details 70 year old female with HTN, HLD, Hypothyroidism, Migraine, CKD, PreDM and anxiety here to establish care and for medication refills, and for chronic condition management. She was a patient of her previous physician, Dr. Pearl, for over 40 years. The patient's medical history includes hypertension, managed with furosemide, metoprolol, and amlodipine. Her BP today was 130/82. She also takes pravastatin 40 mg for hyperlipidemia and levothyroxine 125 mcg for hypothyroidism. She follows with a client specialist, Dr. Portillo, and an lead software test engineer who recently added calcitriol and performed blood work in July. A neurologist also prescribed Sertraline for anxiety and to help with migraines, which have been exacerbated by stress. The patient has a history of prediabetes and a strong family history of diabetes. She has a history of recurrent infectious bronchitis, which she manages with Mucinex at the first sign of congestion. She also has a history of costochondritis, which causes occasional chest pain. She experiences joint pain from prior injuries, for which she uses topical analgesics and Tylenol, avoiding other pain relievers. For health maintenance, her last mammogram was several years ago. A Cologuard test about 1.5 years ago was questionable, which she attributes to a false positive from occasional rectal bleeding with hard stools. She received her flu and COVID-19 shots in July. Patient was informed and verbally consented to the use of an ambient scribe for clinic note documentation during this visit. [facility] Medical History (Updated 08/08/25 @ 14:10 by FELIBERTO Kim) Chronic kidney disease, stage 3a Health care maintenance Hypertension Hypothyroidism Medication management Obesity (BMI 30-39.9) Obesity (BMI 35.0-39.9 without comorbidity) Osteoporosis Pre-diabetes Surgical History History of ankle surgery Family History (Updated 08/08/25 @ 13:08 by Xena Miles MA) Mother No problems noted. Father No problems noted. Social History Housing: House Patient Tobacco Use Status: Former Tobacco user e-Cigarette/Vaping Use: Former Use service: No Current occupational status: retired Cognitive needs: No Hearing needs: Yes Vision needs: Yes (rx glasses) Questionnaire PHQ-9 Over the last 2 weeks, how often have you been bothered by any of the following problems? 1. Little interest or pleasure in doing things: not at all 2. Feeling down, depressed, or hopeless: nearly every day 3. Trouble falling or staying asleep, or sleeping too much: not at all 4. Feeling tired or having little energy: not at all 5. Poor appetite or overeating: not at all 6. Feeling bad about yourself - or that you are a failure or have let yourself or your family down: not at all 7. Trouble concentrating on things, such as reading the newspaper or watching television: not at all 8. Moving or speaking so slowly that other people could have noticed. Or the opposite - being so fidgety or restless that you have been moving around a lot more than usual: not at all 9. Thoughts that you would be better off or of hurting yourself in some way: not at all Total score: 3 Depression Screening Interpretation: Negative Depression Screening Done: Yes Source: Developed by Drs. Gautam Hansen, Fátima Merritt, Raymond Ridley and colleagues, with an educational farshda from [employer]. Thrive Questionnaire Date Thrive assessed: 08/08/25 I am a: Patient Within the past 12 months, did the food you bought not last and you didn't have the money to get more?: Never true Within the past 12 months, did you worry whether your food would run out before you got money to buy more?: Never true Do you have trouble paying for medicines?: No Do you have trouble getting transportation to medical appointments?: No Do you have trouble paying your heating and electricity bill?: No Do you have trouble taking care of your child, family member or friend?: No Do you have trouble with day-to-day activities such as bathing, preparing meals, shopping, managing finances, etc.?: No Are you currently unemployed and looking for a job?: No Are you interested in more education?: No THRIVE Score: 0 AUDIT C Alcohol Use Questionnaire (AUDIT-C) 1. How often do you have a drink containing alcohol?: Monthly or less 2. How many drinks containing alcohol do you have on a typical day when you are drinking?: 1 or 2 3. How often do you have six or more drinks on one occasion?: Less than monthly Total Score: 2 PERICO-7 AMB Questionnaire PERICO-7 Date PERICO - 7 assessed: 08/08/25 Feeling nervous, anxious, or on edge: 0 = Not at all Not being able to stop or control worryin = Not at all Worrying too much about different things: 0 = Not at all Trouble relaxin = Not at all Being so restless that it is hard to sit still: 0 = Not at all Becoming easily annoyed or irritable: 0 = Not at all Feeling afraid as if something awful might happen: 0 = Not at all Total PERICO-7 score (0-4 normal; 5-9 mild; 10-14 moderate; 15-21 severe): 0 Source: Developed by Fátima Daniel B.W. René, Raymond Ridley and colleagues, with an educational farshad from [employer]. Review of Systems Narrative CONSTITUTIONAL Denies fever. HEAD/NECK Migraines, improved lately EAR/NOSE/MOUTH/THROAT Reports hearing impairment and uses hearing aids that need to be tuned up. Denies other vision problems. Reports sinus drainage during rainy weather RESPIRATORY Reports a history of infectious bronchitis with occasional coughing. Denies current shortness of breath. CARDIOVASCULAR Reports occasional chest pain, which she identifies as costochondritis. GASTROINTESTINAL Reports occasional rectal bleeding with hard stools. Denies diarrhea. MUSCULOSKELETAL Reports joint pain. Denies back pain. NEUROLOGICAL Negative PSYCHIATRIC Reports significant life stress Physical exam (Primary Care) Vital Signs: Last Vital Signs Temp 97.5 F 08/08/25 07:59 Pulse 81 08/08/25 07:59 BP 130/82 08/08/25 07:59 Pulse Ox 98 08/08/25 07:59 Oxygen Delivery Method Room Air 08/08/25 07:59 BMI result Body Mass Index 35.2 GENERAL Well developed, obese, in no apparent distress HEENT Head-Normocephalic Eyes- PERRLA, EOMI, Conjuctiva clear, lids WNL Ears- Canals clear, TMs WNL Mouth/Throat-No lesions, no erythema, no exudate Neck- Supple, No lymphadenopathy, thyroid WNL RESPIRATORY Normal I:E, Clear to auscultation CARDIOVASCULAR Regular, rate and rhythm, No murmurs or rubs GASTROINTESTINAL Soft, nontender, normal bowel sounds, no masses MUSCULOSKELETAL Back- nontender Joints- no pain or deformity NEUROLOGICAL Gait normal PSYCHIATRIC Oriented to person, place and time Mood and affect WNL Appearance WNL Speech WNL Thought processes WNL Tobacco/Smoking Status: Tobacco use Status Tobacco use date assessed 08/08/25 08/08/25 08:00 Patient Tobacco Use Status Former Tobacco user 08/08/25 08:00 e-Cigarette/Vaping Use Former Use 08/08/25 08:00 PHQ-9: PHQ-9 Score PHQ-9: Total score 3 08/08/25 13:09 Depression Screening Interpretation: Negative Thrive Assessment: Date of Thrive Assessment Date Thrive assessed 08/08/25 08/08/25 08:00 Coding Level of Care Code Established Pt Est Pt Level 5 (28535) Patient Type Established Diagnoses Primary hypertension I10 Hypertension type: primary hypertension Hypothyroidism E03.9 Pre-diabetes R73.03 Migraine without aura and without status migrainosus, not intractable G43.009 Migraine type: migraine (< 15 days per month) without aura Status migrainosus presence: without status migrainosus Intractability: not intractable Stage 3a chronic kidney disease N18.31 Chronic kidney disease stage 3 subtype: stage 3a (GFR 45-59) Obesity (BMI 35.0-39.9 without comorbidity) E66.9 Health care maintenance Z00.00 Time Spent (min) 40 Comment Time spent on chart review, medication reconciliation, H&P, patient education, orders. Assessment & Plan Assessment & Plan (1) Hypertension: Comment: BP today was 130/82 Code(s): I10 - Essential (primary) hypertension Category: Medical Qualifiers: Hypertension type: primary hypertension Qualified Code(s): I10 - Essential (primary) hypertension Plan: The patient's blood pressure is 130/82 mmHg on her current regimen. She will continue her current medications, including furosemide, metoprolol, and amlodipine, with refills provided. Patient to follow up in 3 months or sooner if symptoms persist or worsen. (2) Hypothyroidism: Code(s): E03.9 - Hypothyroidism, unspecified Category: Medical Plan: The patient is on levothyroxine 125 mcg, but her TSH has not been checked recently. A TSH level has been ordered to assess thyroid function. She will continue the current dose of levothyroxine pending lab results. Patient to follow up in 3 months or sooner if symptoms persist or worsen. (3) Pre-diabetes: Code(s): R73.03 - Prediabetes Category: Medical Plan: The patient has a known history of prediabetes and a strong family history of insulin-dependent diabetes. Blood work will be checked to monitor her glycemic status. Patient to follow up in 3 months or sooner if symptoms persist or worsen. (4) Migraine: Code(s): G43.909 - Migraine, unspecified, not intractable, without status migrainosus Category: Medical Qualifiers: Migraine type: migraine (< 15 days per month) without aura Status migrainosus presence: without status migrainosus Intractability: not intractable Qualified Code(s): G43.009 - Migraine without aura, not intractable, without status migrainosus Plan: Patient followed by Neurology (5) CKD (chronic kidney disease) stage 3, GFR 30-59 ml/min: Code(s): N18.30 - Chronic kidney disease, stage 3 unspecified Category: Medical Qualifiers: Chronic kidney disease stage 3 subtype: stage 3a (GFR 45-59) Qualified Code(s): N18.31 - Chronic kidney disease, stage 3a Plan: Patient followed by Nephrology (6) Obesity (BMI 35.0-39.9 without comorbidity): Comment: BMI today was 35.2 Code(s): E66.9 - Obesity, unspecified Category: Medical Plan: Discussed the health risks of obesity with the patient. Reviewed benefits of even moderate weight loss with the patient. Patient will gradually try and increase exercise to 30-40 min 5-7 times per week. We discussed they may need to break the exercise up into 2-3 sessions daily due to joint pains. We discussed the patient adding more fruits and vegetables to their diet. Will monitor weight and follow up in 3 months. (7) Health care maintenance: Code(s): Z00.00 - Encounter for general adult medical examination without abnormal findings Category: Medical Plan: The patient is establishing care and requires medication refills and overdue health screenings. Refills for amlodipine, furosemide, levothyroxine, metoprolol, and pravastatin will be sent to [facility] for a 90-day supply. An order will be placed for a screening mammogram. A new Cologuard test will be ordered. Comprehensive lab work, including a CBC, CMP, lipid panel, and TSH, will be ordered; the patient was advised to fast for accurate cholesterol results. A follow-up appointment is scheduled in 3 months to review results and monitor her conditions. Plan I reviewed the patient's extensive medical history and current medications. I explained that while her specialists have done some recent labs, we need to order comprehensive blood work, including a TSH, blood count, liver and kidney function tests, and cholesterol levels, to get a complete picture of her health. We discussed her prediabetic status in the context of her strong family history of diabetes. I confirmed that I would send 90-day refills for her current medications to her pharmacy. I also placed orders for a screening mammogram, which is overdue, and a repeat Cologuard test, advising her to avoid doing the test if there is any rectal bleeding. I advised her that her blood work should be done while fasting for an accurate cholesterol reading. We scheduled a follow-up appointment in three months to review all results and ensure her chronic conditions are well-managed. Orders: Orders Complete Blood Count no Diff Today I10 - Essential (primary) hypertension, Z00.00 - Encounter for general adult medical examination without abnormal findings Lipid Panel Today Z00.00 - Encounter for general adult medical examination without abnormal findings, Z79.899 - Other manager terminal (current) drug therapy TSH reflex Free T4 Today E03.9 - Hypothyroidism, unspecified Comprehensive Met. Panel Today E87.6 - Hypokalemia, I10 - Essential (primary) hypertension, Z00.00 - Encounter for general adult medical examination without abnormal findings, Z79.899 - Other manager terminal (current) drug therapy Hemoglobin A1c Today R73.03 - Prediabetes MM screening mammo BI Today Z12.31 - Encounter for screening mammogram for malignant neoplasm of breast Referrals Cologuard Test Z12.11 - Encounter for screening for malignant neoplasm of colon Medications: Changed From levothyroxine 125 mcg PO DAILY 30 days 30 tabs 0RF To levothyroxine 125 mcg PO DAILY 90 tabs 1RF for low thyroid From metoprolol tartrate 50 mg PO BID 30 days 60 tabs 0RF To metoprolol tartrate 50 mg PO BID 180 tabs 1RF for blood pressure From amlodipine 5 mg PO DAILY 30 days 30 tabs 0RF To amlodipine 5 mg PO DAILY 90 tabs 1RF for blood pressure From furosemide 20 mg PO DAILY 30 days 30 tabs 0RF To furosemide 20 mg PO DAILY 90 tabs 1RF for blood pressure From pravastatin 40 mg PO DAILY 30 days 30 tabs 0RF To pravastatin 40 mg PO DAILY 90 tabs 2RF for cholesterol Patient Instructions: - I have sent 90-day refills for your current medications (amlodipine, furosemide, thyroid medication, metoprolol, and pravastatin) to the [facility] on [address]. - We have ordered a mammogram for you. The facility will call you to schedule it. - A Cologuard kit for colon cancer screening will be mailed to your home. Please make sure you are not having any bleeding from your rectum when you collect the sample. - Please go to a lab to have your blood drawn. Do not eat or drink anything (except water) for at least 8 hours before the test. You do not need any paperwork; the order is in the computer system. - For joint pain, continue using topical creams like Icy Hot and take Tylenol as needed. You should not take medications like ibuprofen or naproxen. - Please schedule a follow-up appointment at the [facility] for about 3 months from now.
--- OUTSIDE RECORDS SUMMARY | 2025-08-08 16:03 | XMS_ITS | Patient Health Record ---
Author Organization [facility] Address [address] [place] [phone] Care Team Providers Care Engineering Technician Parking Name Role Phone Rich (RETIRED) Dax BRAY Primary Care Provide r Gautam Ochoa [phone] Reason For Referral No Information Encounters Encounter Location Date Provider Diagnosis [facility] [address] [place] [phone] 09/24/2024 Gautam Damon [facility] [address] [place] [phone] 11/02/2024 Gautam Damon Plan Of Treatment No Information Insurance Providers Payer Name Payer Address Payer Phone Subscriber Number Group Number Insured Name Patient Relationship to Insured Coverage Start Date Coverage End Date MEDICARE OF [facility] [address] [place] [address] [phone] [id number] JENNY RAO Self - patient is the insured [facility] [address] [place] [phone] [id number] JENNY RAO Self - patient is the insured
== END 2025-08-08 13:41 | disposition home or self-care (01) ==
LOC: HO.HMCHD 12:41
PROVIDERS: PCP Internal Medicine; Visit Provider Physician Assistant Medical
DX: I10 Essential (primary) hypertension (principal); E03.9 Hypothyroidism, unspecified; R73.03 Prediabetes; G43.009 Migraine without aura, not intractable, without status migrainosus; N18.31 Chronic kidney disease, stage 3a; E66.9 Obesity, unspecified; Z00.00 Encounter for general adult medical examination without abnormal findings

== ENCOUNTER → 2025-08-08 12:41 | Outpatient (BNVA) | payer MEDICARE, SELFPAY | PROVIDERS: PCP Internal Medicine; Visit Provider Physician Assistant Medical | DX: Z00.00 Encounter for general adult medical examination without abnormal findings (principal); I12.9 Hypertensive chronic kidney disease with stage 1 through stage 4 chronic kidney disease, or unspecified chronic kidney disease; N18.31 Chronic kidney disease, stage 3a; E03.9 Hypothyroidism, unspecified; R73.03 Prediabetes; G43.009 Migraine without aura, not intractable, without status migrainosus; E66.9 Obesity, unspecified; Z68.35 Body mass index [BMI] 35.0-35.9, adult | CPT/HCPCS: 96127; 99212 ==

== ENCOUNTER 2025-08-10 07:56 | Outpatient (REF) | payer MEDICARE, SELFPAY ==
--- OUTSIDE RECORDS SUMMARY | 2024-11-02 09:40 | XMS_ITS ---
Author Organization [facility] Address [address] [place] [phone] Care Team Providers Care Business Unit Director Name Role Phone Rich (RETIRED) Dax BRAY Primary Care Provide Gautam Quick [phone] REASON FOR VISIT Patient presents today for a positive cologuard Encounters Encounter Location Date Provider Diagnosis [facility] [address] [place] [phone] 11/02/2024 Gautam Damon Plan Of Treatment No Information Progress Notes * ANU RAOOB:1955 (70 yo F)Acc No.[id number]:11/02/2024 Progress Notes Patient: JENNY BANKS Provider: Arun Damon MD :1955 A ge:69 Y S ex:Female Date:11/02/2024 Address:[address] [place] [address], [facility] Pcp:Dax Villanueva (RETIRED )MD Subjective: * Chief [...] MD Date: 0 11/02/2024 Generated for Simran beckman/Margie/Rhondasmitting on: 10/10/2024 08:01 AM EST
--- OUTSIDE RECORDS SUMMARY | 2025-08-10 08:01 | XMS_ITS | Patient Health Record ---
Author Organization [facility] Address [address] [place] [phone] Care Team Providers Care Paper And Pulp Mill Operator Name Role Phone Rich (RETIRED) Dax BRAY Primary Care Provide r Gautam Ochoa [phone] Reason For Referral No Information Encounters Encounter Location Date Provider Diagnosis [facility] [address] [place] [phone] 09/24/2024 Gautam Damon [facility] [address] [place] [phone] 11/02/2024 Gautam Damon Plan Of Treatment No Information Insurance Providers Payer Name Payer Address Payer Phone Subscriber Number Group Number Insured Name Patient Relationship to Insured Coverage Start Date Coverage End Date MEDICARE OF [facility] [address] [place] [address] [id number] JENNY RAO Self - patient is the insured [facility] [address] [place] [phone] [id number] JENNY RAO Self - patient is the insured
[2025-08-10 10:52] LABS: Hematocrit 49.5 % (37.0-47.0); Hemoglobin 15.6 g/dl (12.0-16.0); Mean Corpuscular HGB Conc 31.5 g/dl (31.0-35.0); Mean Corpuscular Hemoglobin 28.9 pg (27.0-33.0); Mean Corpuscular Volume 91.7 fL (80.0-98.0); NRBC Abs Auto 0.000 X10*3/uL (0.0-0.012); NRBC Pct Auto 0.0 /100WBC (0.0-0.2); Platelet Count 295 X10*3/uL (160-400); Red Blood Count 5.40 X10*6/uL (4.20-5.50); White Blood Count 7.6 X10*3/uL (4.8-10.8)
[2025-08-10 11:26] LABS: Alanine Aminotransferase 11 U/L (0-31); Albumin Level 3.9 g/dL (3.5-5.0); Alkaline Phosphatase 70 U/L (39-117); Anion Gap 8 (12-20); Aspartate Amino Transferase 16 U/L (5-31); Blood Urea Nitrogen 14 mg/dL (9-16); Calcium 9.4 mg/dL (8.4-10.2); Carbon Dioxide 27 mmol/L (22-29); Chloride 112 mmol/L (96-108); Cholesterol 192 mg/dL (<200); Estimated Glomerular Filt Rate 38; HDL Cholesterol 61 mg/dL (>40); Potassium 3.5 mmol/L (3.3-5.1); Sodium 143 mmol/L (135-145); Total Protein 6.4 g/dL (6.5-8.0); Triglycerides 105 mg/dL (<150)
[2025-08-10 12:36] LABS: Free T4 (Free Thyroxine) 1.61 ng/dL (0.71-1.85)
== END 2025-08-10 07:57 | disposition home or self-care (01) ==
LOC: HO.HMGCLDS 07:56
PROVIDERS: PCP Physician Assistant Medical; Visit Provider Physician Assistant Medical
DX: Z00.00 Encounter for general adult medical examination without abnormal findings (principal); E03.9 Hypothyroidism, unspecified; I10 Essential (primary) hypertension; E87.6 Hypokalemia; R73.03 Prediabetes; Z79.899 Other long term (current) drug therapy
CPT/HCPCS: 36415; 80053; 80061; 83036; 84439; 84443; 85027

== ENCOUNTER 2025-08-26 07:40 | Outpatient (AMB) | payer MEDICARE, OTHER, SELFPAY ==
--- OUTSIDE RECORDS SUMMARY | 2024-11-02 09:40 | XMS_ITS ---
Author Organization [facility] Address [address] [place] [phone] Care Team Providers Care Heat And Frost Insulator Helper Name Role Phone Rich (RETIRED) Dax BRAY Primary Care Provide Gautam Quick [phone] REASON FOR VISIT Patient presents today for a positive cologuard Encounters Encounter Location Date Provider Diagnosis [facility] [address] [place] [phone] 11/02/2024 Gautam Damon Plan Of Treatment No Information Progress Notes * NIDIA RAORYANOB:1955 (70 yo F)Acc No.[id number]:11/02/2024 Progress Notes Patient: JENNY BANKS Provider: Arun Damon MD :1955 A ge:69 Y S ex:Female Date:11/02/2024 Address:[address] [place], [place] [id number] Pcp:Dax Villanueva (RETIRED )MD Subjective: * Chief [...] 0 11/02/2024 Generated for Simran beckman/Margie/Rameshitting on: 10/26/2024 07:43 AM EST
--- OUTSIDE RECORDS SUMMARY | 2025-08-26 07:43 | XMS_ITS | Patient Health Record ---
Author Organization [facility] Address [address] [place] [phone] Care Team Providers Care Electrical Unit Rebuilder Name Role Phone Rich (RETIRED) Dax BRAY Primary Care Provide r Gautam Ochoa [phone] Reason For Referral No Information Encounters Encounter Location Date Provider Diagnosis [facility] [address] [place] [phone] 09/24/[address] [facility] [address] [place] [phone] 11/02/2024 Gautam Damon Plan Of Treatment No Information Insurance Providers Payer Name Payer Address Payer Phone Subscriber Number Group Number Insured Name Patient Relationship to Insured Coverage Start Date Coverage End Date MEDICARE OF [facility] [address] [place] [address] [id number] JENNY RAO Self - patient is the insured [facility] [address] [place] [phone] [id number] JENNY RAO Self - patient is the insured
--- NOTE | 2025-08-26 08:30 | A.OFFVIS_ITS ---
Intake Visit Reasons: 6 weeks MURPHY Allergies latex Allergy (Mild, Verified 08/26/25 08:31) Unknown azithromycin Allergy (Verified 08/26/25 08:31) Unknown Medication List - Last Reconciled 08/26/25 by Isa Carrillo CNP amlodipine 5 mg PO DAILY xpaolvdgus-gjwfbzmyhznsy-islo 50-325-40 mg 1 - 2 tabs PO DAILY PRN calcitriol 0.25 mcg PO 3XW furosemide 20 mg PO DAILY levothyroxine 125 mcg PO DAILY metoprolol tartrate 50 mg PO BID potassium chloride ER 20 mEq PO DAILY 90 days pravastatin 40 mg PO DAILY sertraline 25 mg PO DAILY 90 days topiramate 25 mg PO BEDTIME 90 days HPI Comments Details: 70 year-old woman with glaucoma, HTN, and migraine. She was doing much better. Mood was much better with sertraline and she had jake again. Stress and anxiety were better, and headaches were less. She had 2-3 migraines in the last 6 weeks. Sleep was okay, and she felt rested. She was also starting to practice some yoga again. [facility] Medical History (Updated 08/08/25 @ 14:10 by FELIBERTO Kim) Obesity (BMI 35.0-39.9 without comorbidity) Obesity (BMI 30-39.9) Hypothyroidism Pre-diabetes Medication management Health care maintenance Osteoporosis Hypertension Chronic kidney disease, stage 3a Surgical History History of ankle surgery Family History (Updated 08/08/25 @ 13:08 by Xena Miles MA) Mother No problems noted. Father No problems noted. Social History Housing: House Patient Tobacco Use Status: Former Tobacco user e-Cigarette/Vaping Use: Former Use service: No Current occupational status: retired Cognitive needs: No Hearing needs: Yes Vision needs: Yes (rx glasses) Review of Systems Const Denies chills, Denies daytime sleepiness, Denies difficulty sleeping, Denies fatigue, Denies fever(s), Denies frequent falls, Reports headache(s), Denies increased appetite, Denies poor appetite, Denies snoring, Denies weakness, Denies weight gain and Denies weight loss Eyes Denies loss of vision ENT Denies vertigo, Denies dizziness and Reports headache(s) Card Denies chest pain at rest, Denies chest pain with activity, Denies syncope, Denies leg edema and Denies palpitations Resp Denies snoring GI Denies constipation, Denies heartburn, Denies diarrhea and Denies nausea Denies urinary frequency, Denies urinary incontinence and Denies urinary urgency Musc Denies abnormal gait, Denies numbness and Denies tingling Skin/Breast Denies dry skin and Denies rash Neuro Denies abnormal gait, Denies vertigo, Denies dizziness, Denies syncope, Denies frequent falls, Reports headache(s), Denies lack of coordination, Denies loss of vision, Denies memory loss, Denies numbness, Denies restless legs, Denies se izure-like activity, Denies tingling, Denies paresthesias, Denies tremor(s) and Denies weakness Psych Reports anxiety, Denies depression, Denies auditory hallucinations, Denies memory loss, Denies visual hallucinations and Denies suicidal ideation Endo Denies fatigue and Denies palpitations Physical Exam Const Other: General Appearance:? normal, in no acute distress. Skin:? no rashes, no significant birthmarks. Heart:? S1, S2 normal, no murmurs. Lungs:? clear anteriorly and posteriorly. Extremities:? no edema. Psych:? alert, oriented, cognitive function intact, cooperative with exam. Neuro Other: Mental Status:?Normal attention, orientation, memory and affect.? Cranial Nerves:?Pupils are equal, round and reactive to light. External occular muscles are intact. Visual la are full. Face is symmetrical. Facial sensations are normal. Tongue is midline. Palate elevates symmetrically. Shoulder shrugging is normal. Hearing to bedside conversation is decreased. Coordination:?No ataxia,?no titubation.? Gait Exam: With cane. Extrapyramidal System:?No tremor, rigidity with normal facial expressions.? Pronator Drift:?Not present.? Involuntary Movements:?No tremors seen.? Speech:?Normal.? Results Reviewed Results Reviewed: MRI brain w/o cont at [facility] in 2005: White matter non specific changes (reported) Assessment & Plan Assessment & Plan (1) Migraine: Code(s): G43.909 - Migraine, unspecified, not intractable, without status migrainosus Category: Medical Qualifiers: Migraine type: migraine (< 15 days per month) without aura Status migrainosus presence: without status migrainosus Intractability: not intractable Qualified Code(s): G43.009 - Migraine without aura, not intractable, without status migrainosus Plan: Continue topiramate 25mg 1 tablet at bedtime. Continue wpxqhheljy-JMVV-rlpy 50-325-40mg 1-2 tablets as needed for migraine #10 for 30 days. Follow up in 6 months or sooner as needed. (2) Anxiety: Code(s): F41.9 - Anxiety disorder, unspecified Category: Medical Plan: Continue sertraline 25mg 1 tablet daily. Coding Level of Care Code Est Pt Level 4 (11151) Diagnoses Migraine without aura and without status migrainosus, not intractable G43.009 Migraine type: migraine (< 15 days per month) without aura Status migrainosus presence: without status migrainosus Intractability: not intractable Anxiety F41.9
== END 2025-08-26 08:43 | disposition home or self-care (01) ==
LOC: HO.HSM 07:40
PROVIDERS: PCP Internal Medicine; Visit Provider Registered Nurse
DX: G43.009 Migraine without aura, not intractable, without status migrainosus (principal); F41.9 Anxiety disorder, unspecified
CPT/HCPCS: 99214

== ENCOUNTER → 2025-08-26 07:40 | Outpatient (BNVA) | payer MEDICARE, OTHER, SELFPAY | PROVIDERS: PCP Internal Medicine; Visit Provider Registered Nurse | DX: G43.009 Migraine without aura, not intractable, without status migrainosus (principal); F41.9 Anxiety disorder, unspecified; I10 Essential (primary) hypertension; Z87.891 Personal history of nicotine dependence | CPT/HCPCS: 99212 ==

== ENCOUNTER 2025-09-16 11:51 | Outpatient (REF) | payer MEDICARE, OTHER, SELFPAY | END 2025-09-16 11:52 | disposition home or self-care (01) | LOC: HO.HMGCLDS 11:51 | PROVIDERS: PCP Internal Medicine; Visit Provider Physician Assistant Medical | DX: E03.9 Hypothyroidism, unspecified (principal) | CPT/HCPCS: 36415; 84443 ==

== ENCOUNTER 2025-09-23 14:23 | Outpatient (AMB) | payer MEDICARE, SELFPAY ==
--- OUTSIDE RECORDS SUMMARY | 2024-11-02 09:40 | XMS_ITS ---
Author Organization [facility] Address [address] [place] [phone] Care Team Providers Care Hogshead Liner Name Role Phone Rich (RETIRED) Dax BRAY Primary Care Provide Gautam Quick [phone] REASON FOR VISIT Patient presents today for a positive cologuard Encounters Encounter Location Date Provider Diagnosis [facility] [address] [place] [phone] 11/02/2024 Gautam Damon Plan Of Treatment No Information Progress Notes * NIDIA RAORYANOB:1955 (70 yo F)Acc No.[id number]:11/02/2024 Progress Notes Patient: JENNY BANKS Provider: Arun Damon MD :1955 A ge:69 Y S ex:Female Date:11/02/2024 Address:[address] [place], [place] [id number] Pcp:Dax Villanueva (RETIRED )MD Subjective: * Chief Complaints: * P atient presents today for a positive cologuard Billing Information: * Procedure Codes: * The named appointment provid er may or may not be the originator of this progress note, and it is not deemed complete until electronically signed by the appointment provider. Sign off status: Pending * Provider: Arun Damon MD Date: 0 11/02/2024 Generated for Simran beckman/Margie/Rameshitting on: 11/24/2024 03:50 PM EST
--- NOTE | 2025-09-23 14:29 | HO.NEPHOV ---
Vital Signs 09/23/25 14:32 Height 5 ft 6 in Weight 217 lb 2 oz BMI 35.0 BP 112/80 Blood Pressure Location Rt brachial Position Sitting Pulse 73 Pulse Source Pulse Oximeter Pulse Oximetry (%) 95 Oxygen Delivery Method Room Air Intake Visit Reasons: 6 MO [facility] Rn Hemodialysis Charge Required: No Accompanied by: Self / Same As Patient Allergies latex Allergy (Mild, Verified 09/23/25 14:32) Unknown azithromycin Allergy (Verified 09/23/25 14:32) Unknown HPI Comments Details: Claire was seen in follow-up of her chronic kidney disease and hypertension. She feels well. She has a positive Cologuard but has not had a colonoscopy . She does not have any chest pain, shortness of breath, paroxysmal nocturnal dyspnea, orthopnea, pedal edema, urinary or orthostatic symptoms. She is compliant with her medications. Her blood pressure has been at goal. She has a parathyroid adenoma. She has an appointment with Mysql Database Administrator [facility] Medical History (Updated 08/08/25 @ 14:10 by FELIBERTO Kim) Obesity (BMI 35.0-39.9 without comorbidity) Obesity (BMI 30-39.9) Hypothyroidism Pre-diabetes Medication management Health care maintenance Osteoporosis Hypertension Chronic kidney disease, stage 3a Surgical History History of ankle surgery Family History Mother No problems noted. Father No problems noted. Social History Housing: House Patient Tobacco Use Status: Former Tobacco user e-Cigarette/Vaping Use: Former Use service: No Current occupational status: retired Cognitive needs: No Hearing needs: Yes Vision needs: Yes (rx glasses) Review of Systems Const All systems reviewed & are unremarkable except as noted in HPI and below Physical Exam Vital Signs: Last Vital Signs Pulse 73 09/23/25 14:32 BP 112/80 09/23/25 14:32 Pulse Ox 95 09/23/25 14:32 Oxygen Delivery Method Room Air 09/23/25 14:32 BMI result Body Mass Index 35.0 Const General: comfortable and no acute distress Orientation/consciousness: patient oriented x3 HEENT Head: Yes normocephalic Mouth: Normal oral and palatal mucosa present Eyes EOM: EOMs intact bilaterally Neck Neck: Yes supple Resp Auscultation: clear to auscultation bilaterally Cardio Jugular venous distension: no JVD Rate: regular rate GI Palpation (GI): Soft to palpation Auscultation: normal bowel sounds General: Yes no CVA tenderness Back/Spine/Pelvis Back: no CVA tenderness Skin General skin exam: no rashes or lesions noted Neuro General: patient oriented x3 and moves all extremities Extrem General: Yes no pedal edema Results Reviewed Nephrology Results: Hgb, (12.0-16.0) 15.6 g/dl 08/10/25 WBC, (4.8-10.8) 7.6 X10*3/uL 08/10/25 Plt Count, (160-400) 295 X10*3/uL 08/10/25 Sodium, (135-145) 143 mmol/L 08/10/25 Potassium, (3.3-5.1) 3.5 mmol/L 08/10/25 Chloride, (96-108) 112 mmol/L H 08/10/25 Carbon Dioxide, (22-29) 27 mmol/L 08/10/25 BUN, (9-16) 14 mg/dL 08/10/25 Creatinine, (0.5-1.4) 1.37 mg/dL 08/10/25 Calcium, (8.4-10.2) 9.4 mg/dL 08/10/25 Renal US 03/11/25 Assessment & Plan Assessment & Plan (1) Hypertension: Comment: BP today was 130/82 Code(s): I10 - Essential (primary) hypertension Category: Medical Qualifiers: Hypertension type: primary hypertension Qualified Code(s): I10 - Essential (primary) hypertension (2) CKD (chronic kidney disease) stage 3, GFR 30-59 ml/min: Code(s): N18.30 - Chronic kidney disease, stage 3 unspecified Category: Medical Qualifiers: Chronic kidney disease stage 3 subtype: stage 3a (GFR 45-59) Qualified Code(s): N18.31 - Chronic kidney disease, stage 3a (3) Secondary hyperparathyroidism (of renal origin): Code(s): N25.81 - Secondary hyperparathyroidism of renal origin Category: Medical Plan Her renal functions are currently stable. Her blood pressure has been at goal. She would benefit by some more weight loss. She should maintain a low-sodium diet. Her volume status quite optimal. She avoids nonsteroidal anti-inflammatories and maintain good hydration. She follows with endocrinology. I did not make any other medication changes today. Answered all questions. Orders: Orders Electrolytes 6 Months I10 - Essential (primary) hypertension, N18.31 - Chronic kidney disease, stage 3a, N25.81 - Secondary hyperparathyroidism of renal origin Phosphorus 6 Months I10 - Essential (primary) hypertension, N18.31 - Chronic kidney disease, stage 3a, N25.81 - Secondary hyperparathyroidism of renal origin Calcium 6 Months I10 - Essential (primary) hypertension, N18.31 - Chronic kidney disease, stage 3a, N25.81 - Secondary hyperparathyroidism of renal origin Blood Urea Nitrogen 6 Months I10 - Essential (primary) hypertension, N18.31 - Chronic kidney disease, stage 3a, N25.81 - Secondary hyperparathyroidism of renal origin Creatinine 6 Months I10 - Essential (primary) hypertension, N18.31 - Chronic kidney disease, stage 3a, N25.81 - Secondary hyperparathyroidism of renal origin Coding Level of Care Code Est Pt Level 4 (37100) Diagnoses Primary hypertension I10 Hypertension type: primary hypertension Stage 3a chronic kidney disease N18.31 Chronic kidney disease stage 3 subtype: stage 3a (GFR 45-59) Secondary hyperparathyroidism (of renal origin) N25.81
[2025-09-23 14:32] VITALS: BP 112/80; PULSE 73; O2SAT 95; BMI 35.0
--- OUTSIDE RECORDS SUMMARY | 2025-09-23 15:50 | XMS_ITS | Patient Health Record ---
Author Organization [facility] Address [address] [place] [phone] Care Team Providers Care Barrel Washer Name Role Phone Rich (RETIRED) Dax BRAY Primary Care Provide r Gautam Ochoa [phone] Reason For Referral No Information Encounters Encounter Location Date Provider Diagnosis [facility] [address] [place] [phone] 09/24/2024 Gautam Damon [facility] [address] [place] [phone] 11/02/2024 Gautam Damon Plan Of Treatment No Information Insurance Providers Payer Name Payer Address Payer Phone Subscriber Number Group Number Insured Name Patient Relationship to Insured Coverage Start Date Coverage End Date MEDICARE OF [facility] [address] [place] [address] [id number] JENNY RAO Self - patient is the insured [facility] [address] [place] [phone] [id number] JENNY RAO Self - patient is the insured
== END 2025-09-23 14:46 | disposition home or self-care (01) ==
LOC: HO.HKA 14:24
PROVIDERS: PCP Internal Medicine; Visit Provider Internal Medicine Nephrology
DX: I10 Essential (primary) hypertension (principal); N18.31 Chronic kidney disease, stage 3a; N25.81 Secondary hyperparathyroidism of renal origin
CPT/HCPCS: 99214

== ENCOUNTER → 2025-09-23 14:23 | Outpatient (BNVA) | payer MEDICARE, SELFPAY | PROVIDERS: PCP Internal Medicine; Visit Provider Internal Medicine Nephrology | DX: I12.9 Hypertensive chronic kidney disease with stage 1 through stage 4 chronic kidney disease, or unspecified chronic kidney disease (principal); N18.31 Chronic kidney disease, stage 3a; N25.81 Secondary hyperparathyroidism of renal origin; Z87.891 Personal history of nicotine dependence | CPT/HCPCS: 99212 ==